=== PATIENT | female | born 1945 | race Caucasian/White ===

== ENCOUNTER 2017-05-18 19:47 | Emergency (ER) | payer MEDICARE, BC ==
[2017-05-18] MEDS ORDERED: methylPREDNISolone Sodium Succinate 125 MG/2 ML SDV IVPUSH ONE (20:07)
[2017-05-18] MEDS ORDERED: Sodium Chloride 0.9% 1,000 ML IV ONE (20:07)
[2017-05-18] MEDS ORDERED: diphenhydrAMINE 50 MG/ML SDV IVPUSH ONE (20:07)
--- NOTE | 2017-05-18 20:21 | EDM.PDOC ---
ED HPI GENERAL MEDICAL PROBLEM - General Chief Complaint: Allergic Reaction Stated Complaint: SHORTNESS OF BREATH Time Seen by Provider: 05/18/17 19:56 Source of Information: Reports: Patient History Limitations: Reports: No Limitations - History of Present Illness INITIAL COMMENTS - FREE TEXT/NARRATIVE: HISTORY AND PHYSICAL: History of present illness: Patient is a 71-year-old female that presents to the emergency room today with complaints of "allergic reaction". Reports that about 30 minutes prior to arrival she was playing with her grandchildren and had applied triple antibiotic ointment, which she had never used before, to her diabetic sores to bilateral lower extremities. Shortly after she became short of breath, noticed her skin was turning bright red, and felt some pressure in her chest. She sat down and felt that she was able to regain her breath and the pressure subsided. Shortly after her skin became very itchy. She took some prescribed hydroxizine with minimal relief. Patient denies any fever, chills, abdominal pain, cough, headache. Past medical history of diabetes type 2. Review of systems: As per history of present illness and below otherwise all systems reviewed and negative. Past medical history: As per history of present illness and as reviewed below otherwise noncontributory. Surgical history: As per history of present illness and as reviewed below otherwise noncontributory. Social history: No reported history of drug or alcohol abuse. Family history: As per history of present illness and as reviewed below otherwise noncontributory. Physical exam: HEENT: Atraumatic, normocephalic, pupils reactive, negative for conjunctival pallor or scleral icterus, mucous membranes moist, throat clear, neck supple, nontender, trachea midline. Lungs: Clear to auscultation, breath sounds equal bilaterally, chest nontender. Heart: S1S2, regular, negative for clicks, rubs, or JVD. Abdomen: Soft, obese nondistended, nontender. Negative for masses. Negative for costovertebral tenderness. Pelvis: Stable nontender. Genitourinary: Deferred. Rectal: Deferred. Skin: Appears flushed throughout, no hives, positive urine urticaria. Some diabetic sores noted to bilateral lower extremities (patient reports she has had these for several months). Extremities: Atraumatic, negative for cords or calf pain. Neurovascular unremarkable. Neuro: Awake, alert, oriented. Cranial nerves II through XII unremarkable. Cerebellum unremarkable. Motor and sensory unremarkable throughout. Exam nonfocal. Diagnostics: CBC, CMP, troponin, EKG, one view chest Therapeutics: IV fluid, Benadryl, solumedrol Impression: Allergic reaction Plan: 1. Please take the Medrol Dosepak as prescribed. Continue to take Benadryl over- the-counter as directed for the next 24 hours. 2. Avoid any hot showers or baths at this time as this may increase it itching. 3. Please follow-up with her primary care provider in the next 1-2 days. Return to the emergency room as needed as discussed Definitive disposition and diagnosis as appropriate pending reevaluation and review of above. Onset: Today Duration: Minutes: (Any minutes prior to arrival) - Related Data Allergies Allergy/AdvReac Type Severity Reaction Status Date / Time sulfur Allergy Hives Uncoded 05/18/17 20:12 Home Meds: Home Meds Aspirin [[place] Aspirin] 81 mg PO DAILY 05/28/14 [History] Losartan [Cozaar] 25 mg PO BID 05/28/14 [History] metFORMIN [Glucophage] 1,000 mg PO BID 05/28/14 [History] Past Medical History HEENT History: Reports: None Cardiovascular History: Reports: Hypertension Respiratory History: Reports: None Gastrointestinal History: Reports: None Genitourinary History: Reports: None PLANT ECOLOGIST History: Reports: None Musculoskeletal History: Reports: None Endocrine/Metabolic History: Reports: Diabetes, Type II - Infectious Disease History Infectious Disease History: Reports: None - Past Surgical History Female Surgical History: Reports: Hysterectomy Social & Family History - Tobacco Use Smoking Status *Q: Never Smoker Second Hand Smoke Exposure: No - Recreational Drug Use Recreational Drug Use: No ED ROS ALLERGIC REACTION - Review of Systems Review Of Systems: ROS reveals no pertinent complaints other than HPI. ED EXAM GENERAL NO PERIP PULSE - Physical Exam Exam: See Below (See dictation) EKG INTERPRETATION EKG Date: 05/18/17 Rhythm: NSR (Sinus tachycardia) Rate (Beats/Min): 108 Comparison: NA - No Prior EKG Course - Vital Signs Last Recorded V/S: Last Vital Signs Temp 36.9 C 05/18/17 19:51 Pulse 81 05/18/17 21:07 Resp 20 05/18/17 21:07 BP 151/72 H 05/18/17 21:07 Pulse Ox 98 05/18/17 21:07 - Orders/Labs/Meds Orders: Active Orders 24 hr Category Date Time Status EKG Documentation Completion [RC] STAT Care 05/18/17 19:52 Active Chest 1V Frontal [CR] Stat Exams 05/18/17 20:17 Taken Labs: Laboratory Tests 05/18/17 05/18/17 05/18/17 Range/Units 19:55 19:55 19:55 WBC 8.20 (4.0-11.0) K/uL RBC 4.62 (4.30-5.90) M/uL Hgb 14.0 (12.0-16.0) g/dL Hct 41.5 (36.0-46.0) % MCV 89.8 (80.0-98.0) fL MCH 30.3 (27.0-32.0) pg MCHC 33.7 (31.0-37.0) g/dL RDW Std Deviation 44.5 (28.0-62.0) fl RDW Coeff of Bret 14 (11.0-15.0) % Plt Count 305 (150-400) K/uL MPV 10.70 (7.40-12.00) fL Neut % (Auto) 36.2 L (48.0-80.0) % Lymph % (Auto) 56.1 H (16.0-40.0) % Island % (Auto) 4.9 (0.0-15.0) % Eos % (Auto) 2.6 (0.0-7.0) % Baso % (Auto) 0.2 (0.0-1.5) % Neut # (Auto) 3.0 (1.4-5.7) K/uL Lymph # (Auto) 4.6 H (0.6-2.4) K/uL Island # (Auto) 0.4 (0.0-0.8) K/uL Eos # (Auto) 0.2 (0.0-0.7) K/uL Baso # (Auto) 0.0 (0.0-0.1) K/uL Nucleated RBC % 0.0 /100WBC Nucleated RBCs # 0 K/uL Sodium 137 (136-146) mmol/L Potassium 4.2 (3.5-5.1) mmol/L Chloride 104 (98-110) mmol/L Carbon Dioxide 18 L (21-31) mmol/L BUN 19 (6.0-23.0) mg/dL Creatinine 1.1 (0.6-1.5) mg/dL Est Cr Clr Drug Dosing 43.28 mL/min Estimated GFR (MDRD) 48.8 ml/min Glucose 327 H (60-110) mg/dL Calcium 9.7 (8.8-10.8) mg/dL Total Bilirubin 0.4 (0.1-1.5) mg/dL AST 23 (5-40) IU/L ALT 17 (8-54) IU/L Alkaline Phosphatase 95 (40-150) Troponin I < 0.10 (0.0-0.29) NG/ML Total Protein 7.5 (6.0-8.0) g/dL Albumin 3.8 (3.4-4.8) g/dL Globulin 3.7 H (2.0-3.5) g/dL Albumin/Globulin Ratio 1.0 L (1.3-2.8) Meds: Medications Discontinued Medications Generic Name Dose Route Start Last Admin Trade Name Freq PRN Reason Stop Dose Admin Diphenhydramine HCl 25 mg 05/18/17 20:07 05/18/17 20:15 Benadryl IVPUSH 05/18/17 20:08 25 mg ONETIME ONE Administration Sodium Chloride 1,000 mls @ 999 mls/hr 05/18/17 20:07 05/18/17 20:14 Normal Saline IV 05/18/17 21:07 999 mls/hr STAT ONE Administration Methylprednisolone Sodium Succinate 125 mg 05/18/17 20:07 05/18/17 20:16 Solu-Medrol IVPUSH 05/18/17 20:08 125 mg ONETIME ONE Administration Departure - Departure Time of Disposition: 21:22 Disposition: Home, Self-Care 01 Clinical Impression: Allergic reaction Qualifiers: Encounter type: initial encounter Qualified Code(s): T78.40XA - Allergy, unspecified, initial encounter - Discharge Information Referrals: PCP,None [Primary Care Provider] - Additional Instructions: The following information is given to patients seen in the emergency department who are being discharged to home. This information is to outline your options for follow-up care. We provide all patients seen in our emergency department with a follow-up referral. The need for follow-up, as well as the timing and circumstances, are variable depending upon the specifics of your emergency department visit. If you don't have a primary care physician on staff, we will provide you with a referral. We always advise you to contact your personal physician following an emergency department visit to inform them of the circumstance of the visit and for follow-up with them and/or the need for any referrals to a consulting specialist. The emergency department will also refer you to a specialist when appropriate. This referral assures that you have the opportunity for followup care with a specialist. All of these measure are taken in an effort to provide you with optimal care, which includes your followup. Under all circumstances we always encourage you to contact your private physician who remains a resource for coordinating your care. When calling for followup care, please make the office aware that this follow-up is from your recent emergency room visit. If for any reason you are refused follow-up, please contact the [facility] emergency department at and asked to speak to the emergency department charge nurse. [facility] [address] [place] [address] 1. Please take the Medrol Dosepak as prescribed. Continue to take Benadryl over- the-counter as directed for the next 24 hours. Please fill prescription for EpiPen to have on hand for future occurrences. 2. Avoid any hot showers or baths at this time as this may increase it itching. 3. Please follow-up with her primary care provider in the next 1-2 days. Return to the emergency room as needed as discussed - My Orders Last 24 Hours: My Active Orders 05/18/17 19:52 EKG Documentation Completion [RC] STAT 05/18/17 20:17 Chest 1V Frontal [CR] Stat - Assessment/Plan Last 24 Hours: My Active Orders 05/18/17 19:52 EKG Documentation Completion [RC] STAT 05/18/17 20:17 Chest 1V Frontal [CR] Stat
[2017-05-18 21:08] VITALS: BP 151/72
--- NOTE | 2017-05-20 17:29 | CR ---
EXAM DATE: 05/18/17 PATIENT'S AGE: 71 Patient: SARITHA HSU Facility: [place], [place] Site . Site : 1945 Study: XRay Chest [id number]/3/2017 8:43:01 PM Ordering Physician: Silvia Low Final Report: INDICATION: Chest Pressure TECHNIQUE: Chest 1 view. COMPARISON: None. FINDINGS: Cardiovascular and mediastinum: Heart size and vasculature are normal in caliber and appearance. Mediastinum is within normal limits. Lungs and pleural space: Lungs are clear. No sign of infiltrate or mass. No sign of pleural effusion. No pneumothorax. Bones and soft tissues: No significant findings. IMPRESSION: Unremarkable chest. Dictated by: Brodie Alvarez MD @ 05/18/2017 21:09:03 (Electronic Signature) Report Signed by Proxy. SANTANA
== END 2017-05-18 21:38 | disposition home or self-care (01) ==
LOC: MW.ED 19:47
DX: R06.02 Shortness of breath (principal); E11.628 Type 2 diabetes mellitus with other skin complications; T49.0X5A Adverse effect of local antifungal, anti-infective and anti-inflammatory drugs, initial encounter; I10 Essential (primary) hypertension; Z79.82 Long term (current) use of aspirin; Z79.84 Long term (current) use of oral hypoglycemic drugs; Z90.710 Acquired absence of both cervix and uterus; Z88.2 Allergy status to sulfonamides
CPT/HCPCS: 36415; 71010; 80053; 84484; 85025; 93005; 96374; 96375; 99285; J1200; J2930; J7040; 96361; 99283

== ENCOUNTER 2019-04-14 14:51 | Inpatient (IN) | payer MEDICARE, OTHER ==
[2019-04-14] MEDS ORDERED: Sodium Chloride 0.9% 1,000 ML IV ONE (15:01)
--- NOTE | 2019-04-14 15:01 | EDM.PDOC ---
ED HPI GENERAL MEDICAL PROBLEM - General Chief Complaint: Lower Extremity Injury/Pain Stated Complaint: RT LEG ISSUE;POSSIBLE INFECTION Time Seen by Provider: 04/14/19 14:56 Source of Information: Reports: Patient History Limitations: Reports: No Limitations - History of Present Illness INITIAL COMMENTS - FREE TEXT/NARRATIVE: HISTORY AND PHYSICAL: History of present illness: Patient is a 73-year-old female who presents to the emergency room with complaints of right lower extremity pain and redness. Patient is a type II diabetic and normally has a javed color to her lower extremities, but over the past several days has had localized redness and swelling to the right leon that extends into the calf. She does have pain in the calf when ambulating. Also has felt generalized weakness and nausea. She attributed those symptoms to having "the flu". Patient denies any fever, chills, headache, change in vision, syncope. Denies any chest pain, back pain, shortness of breath or cough. Denies any abdominal pain, nausea, vomiting, diarrhea, constipation or dysuria. Has not noted any blood in urine or stool. Patient has been eating and drinking appropriately. Review of systems: As per history of present illness and below otherwise all systems reviewed and negative. Past medical history: As per history of present illness and as reviewed below otherwise noncontributory. Surgical history: As per history of present illness and as reviewed below otherwise noncontributory. Social history: See social history for further information Family history: As per history of present illness and as reviewed below otherwise noncontributory. Physical exam: General: Well-developed and well-nourished 73-year-old female. Alert and oriented. Nontoxic appearing and in no acute distress. HEENT: Atraumatic, normocephalic, pupils equal and reactive bilaterally, negative for conjunctival pallor or scleral icterus, mucous membranes moist, TMs normal bilaterally, throat clear, neck supple, nontender, trachea midline. No drooling or trismus noted. No meningeal signs. No hot potato voice noted. Lungs: Clear to auscultation, breath sounds equal bilaterally, chest nontender. Heart: S1S2, regular rate and rhythm without overt murmur Abdomen: Soft, nondistended, obese, nontender. Negative for masses. Negative for costovertebral tenderness. Pelvis: Stable nontender. Genitourinary/Rectal: Deferred. Skin: Normal javed discoloration of bilateral lower extremities from midshin downward with dry skin. She does have new erythema and soft tissue swelling of the right anterior leon that wraps to the lateral calf and around (marked with surgical marker). Superficial and healing scratches to bilateral shins. Otherwise skin is intact, warm, dry. No lesions or rashes noted. Extremities: Atraumatic, ambulatory without assistance, moves all extremities per self without difficulty or deficits. Mild right calf pain with palpation. Palpatble pedal pulses bilaterally. Neurovascular unremarkable. Neuro: Awake, alert, oriented. Cranial nerves II through XII unremarkable. Cerebellum unremarkable. Motor and sensory unremarkable throughout. Exam nonfocal. Notes: During the triage assessment it is noted that her blood pressure is low. She states she typically has "normal" blood pressure with her BP medications. States she has felt weak while ambulating. Lab work is pending. She is receiving IV fluids. We did discuss that she will likely need to stay for admission. Patient is agreeable. Patient does have elevated white count and lactate. X-ray shows no soft tissue gas. Dr Mcpherson was consulted on this case, agreeable to admit patient. Jose Ramon Nugent VE[employer]MENT CLEANER in with patient. Patient's blood pressure has improved since a liter bolus. Currently receiving IV antibiotics. Diagnostics: CBC, CMP, lactic acid, BC x 2, Venous Doppler RLE, UA, EKG Therapeutics: IV fluids, Zofran, Vancomycin Impression: Cellulitis Sepsis History of Type 2 DM Plan: ICU admission Definitive disposition and diagnosis as appropriate pending reevaluation and review of above. Right Leg Pain Score (Numeric/FACES): 8 - Related Data Allergies Allergy/AdvReac Type Severity Reaction Status Date / Time Latex, Natural Rubber Allergy Hives Verified 04/15/19 03:47 sulfur Allergy Hives Uncoded 06/22/18 05:57 Home Meds: Home Meds Aspirin [[place] Aspirin] 81 mg PO DAILY 05/28/14 [History] Losartan [Cozaar] 25 mg PO BEDTIME 05/28/14 [History] metFORMIN [Glucophage] 1,000 mg PO BID 05/28/14 [History] Past Medical History HEENT History: Reports: None Cardiovascular History: Reports: Hypertension Respiratory History: Reports: None Gastrointestinal History: Reports: None Genitourinary History: Reports: None 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 ED EXAM, GENERAL - Physical Exam Exam: See Below (See dictation) Course - Vital Signs Last Recorded V/S: Last Vital Signs Temp 96.8 F 04/15/19 08:00 Pulse 91 04/15/19 08:00 Resp 23 H 04/15/19 08:00 BP 124/90 04/15/19 08:00 Pulse Ox 94 L 04/15/19 08:00 - Orders/Labs/Meds Orders: Active Orders 24 hr Category Date Time Status Admission Status [Patient Status] [ADT] Stat ADT 04/14/19 15:47 Active CULTURE BLOOD [BC] Stat Lab 04/14/19 15:03 Received CULTURE BLOOD [BC] Stat Lab 04/14/19 15:18 Received CULTURE URINE [RM] Stat Lab 04/14/19 19:20 Received Sodium Chloride 0.9% [Normal Saline] 500 ml Med 04/14/19 15:15 Active IV .BOLUS Sodium Chloride 0.9% [Normal Saline] 500 ml Med 04/14/19 16:00 Active IV .BOLUS Blood Culture x2 Reflex Set [OM.PC] Stat Oth 04/14/19 15:01 Ordered Medication Orders Acetaminophen (Tylenol) 650 mg PO Q4H PRN PRN Reason: Pain (Mild 1-3)/fever Aspirin (Aspirin) 81 mg PO DAILY [facility] Last Admin: 04/15/19 08:12 Dose: 81 mg Famotidine (Pepcid) 20 mg IVPUSH BEDTIME [facility] Last Admin: 04/14/19 20:07 Dose: 20 mg Heparin Sodium (Porcine) (Heparin Sodium) 5,000 units SUBCUT Q8H [facility] Last Admin: 04/15/19 08:12 Dose: 5,000 units Admin: 04/14/19 23:14 Dose: 5,000 units Admin: 04/14/19 17:04 Dose: 5,000 units Sodium Chloride (Normal Saline) 500 mls @ 999 mls/hr IV .BOLUS [facility] Last Admin: 04/14/19 16:00 Dose: 999 mls/hr Infusion: 04/14/19 16:00 Dose: 999 mls/hr Admin: 04/14/19 15:57 Dose: 999 mls/hr Infusion: 04/14/19 15:43 Dose: 999 mls/hr Admin: 04/14/19 15:12 Dose: 999 mls/hr Sodium Chloride (Normal Saline) 500 mls @ 999 mls/hr IV .BOLUS [facility] Sodium Chloride (Normal Saline) 1,000 mls @ 125 mls/hr IV Q8H [facility] Stop: 04/15/19 12:00 Last Admin: 04/15/19 09:42 Dose: Not Given Admin: 04/15/19 01:54 Dose: 125 mls/hr Infusion: 04/15/19 01:04 Dose: 125 mls/hr Admin: 04/14/19 17:04 Dose: 125 mls/hr Piperacillin Sod/Tazobactam (Sod 3.375 gm/ Sodium Chloride) 50 mls @ 100 mls/ hr IV Q6H [facility] Last Admin: 04/15/19 09:07 Dose: 100 mls/hr Vancomycin HCl 1.5 gm/ Premix 300 mls @ 200 mls/hr IV Q12H [facility] Insulin Aspart (Novolog) 0 unit SUBCUT TIDAC [facility]; Protocol Last Admin: 04/15/19 07:18 Dose: Not Given Admin: 04/14/19 17:05 Dose: Not Given Morphine Sulfate (Morphine) 2 mg IVPUSH Q2H PRN PRN Reason: Pain (severe 7-10) Stop: 04/15/19 16:16 Ondansetron HCl (Zofran) 4 mg IVPUSH Q4H PRN PRN Reason: Nausea Oxycodone HCl (Oxycodone) 5 mg PO Q4H PRN PRN Reason: Pain Last Admin: 04/15/19 01:51 Dose: 5 mg Temazepam (Restoril) 15 mg PO BEDTIME PRN PRN Reason: Insomnia Last Admin: 04/14/19 19:55 Dose: 15 mg Vancomycin HCl (Pharmacy To Dose - Vancomycin) 1 dose .XX ASDIRECTED [facility] Labs: Laboratory Tests 04/14/19 04/14/19 04/14/19 Range/Units 15:03 15:03 15:03 WBC 15.06 H (4.0-11.0) K/uL RBC 4.44 (4.30-5.90) M/uL Hgb 13.3 (12.0-16.0) g/dL Hct 40.3 (36.0-46.0) % MCV 90.8 (80.0-98.0) fL MCH 30.0 (27.0-32.0) pg MCHC 33.0 (31.0-37.0) g/dL RDW Std Deviation 45.5 (28.0-62.0) fl RDW Coeff of Bret 14 (11.0-15.0) % Plt Count 223 (150-400) K/uL MPV 10.50 (7.40-12.00) fL Neut % (Auto) 64.8 (48.0-80.0) % Lymph % (Auto) 24.5 (16.0-40.0) % Harris % (Auto) 10.2 (0.0-15.0) % Eos % (Auto) 0.1 (0.0-7.0) % Baso % (Auto) 0.4 (0.0-1.5) % Neut # (Auto) 9.8 H (1.4-5.7) K/uL Lymph # (Auto) 3.7 H (0.6-2.4) K/uL Harris # (Auto) 1.5 H (0.0-0.8) K/uL Eos # (Auto) 0.0 (0.0-0.7) K/uL Baso # (Auto) 0.1 (0.0-0.1) K/uL Nucleated RBC % 0.0 /100WBC Nucleated RBCs # 0 K/uL Lactate 2.7 H (0.20-2.00) mmol/L Sodium 131 L (136-145) mmol/L Potassium 3.5 (3.5-5.1) mmol/L Chloride 96 L (98-107) mmol/L Carbon Dioxide 22.3 (21.0-32.0) mmol/L BUN 16 (7.0-18.0) mg/dL Creatinine 1.4 H (0.6-1.0) mg/dL Est Cr Clr Drug Dosing 34.28 mL/min Estimated GFR (MDRD) 36.8 ml/min Glucose 175 H (74-106) mg/dL Hemoglobin A1c (4.5-6.2) % Calcium 8.8 (8.5-10.1) mg/dL Total Bilirubin 1.2 H (0.2-1.0) mg/dL AST 21 (15-37) IU/L ALT 18 (14-63) IU/L Alkaline Phosphatase 80 (46-116) U/L Total Protein 8.3 H (6.4-8.2) g/dL Albumin 3.3 L (3.4-5.0) g/dL Globulin 5.0 H (2.6-4.0) g/dL Albumin/Globulin Ratio 0.7 L (0.9-1.6) 04/14/19 Range/Units 15:03 WBC (4.0-11.0) K/uL RBC (4.30-5.90) M/uL Hgb (12.0-16.0) g/dL Hct (36.0-46.0) % MCV (80.0-98.0) fL MCH (27.0-32.0) pg MCHC (31.0-37.0) g/dL RDW Std Deviation (28.0-62.0) fl RDW Coeff of Bret (11.0-15.0) % Plt Count (150-400) K/uL MPV (7.40-12.00) fL Neut % (Auto) (48.0-80.0) % Lymph % (Auto) (16.0-40.0) % Harris % (Auto) (0.0-15.0) % Eos % (Auto) (0.0-7.0) % Baso % (Auto) (0.0-1.5) % Neut # (Auto) (1.4-5.7) K/uL Lymph # (Auto) (0.6-2.4) K/uL Harris # (Auto) (0.0-0.8) K/uL Eos # (Auto) (0.0-0.7) K/uL Baso # (Auto) (0.0-0.1) K/uL Nucleated RBC % /100WBC Nucleated RBCs # K/uL Lactate (0.20-2.00) mmol/L Sodium (136-145) mmol/L Potassium (3.5-5.1) mmol/L Chloride (98-107) mmol/L Carbon Dioxide (21.0-32.0) mmol/L BUN (7.0-18.0) mg/dL Creatinine (0.6-1.0) mg/dL Est Cr Clr Drug Dosing mL/min Estimated GFR (MDRD) ml/min Glucose (74-106) mg/dL Hemoglobin A1c 7.9 H (4.5-6.2) % Calcium (8.5-10.1) mg/dL Total Bilirubin (0.2-1.0) mg/dL AST (15-37) IU/L ALT (14-63) IU/L Alkaline Phosphatase (46-116) U/L Total Protein (6.4-8.2) g/dL Albumin (3.4-5.0) g/dL Globulin (2.6-4.0) g/dL Albumin/Globulin Ratio (0.9-1.6) Meds: Medications Generic Name Dose Route Start Last Admin Trade Name Freq PRN Reason Stop Dose Admin Acetaminophen 650 mg 04/14/19 16:15 Tylenol PO Q4H PRN Pain (Mild 1-3)/fever Aspirin 81 mg 04/15/19 09:00 04/15/19 08:12 Aspirin PO 81 mg DAILY MARK Administration Famotidine 20 mg 04/14/19 21:00 04/14/19 20:07 Pepcid IVPUSH 20 mg BEDTIME MARK Administration Heparin Sodium (Porcine) 5,000 units 04/14/19 16:15 04/15/19 08:12 Heparin Sodium SUBCUT 5,000 units Q8H MARK Administration Sodium Chloride 500 mls @ 999 mls/hr 04/14/19 15:15 04/14/19 16:00 Normal Saline IV 999 mls/hr .BOLUS MARK Administration Sodium Chloride 500 mls @ 999 mls/hr 04/14/19 16:00 Normal Saline IV .BOLUS MARK Sodium Chloride 1,000 mls @ 125 mls/hr 04/14/19 16:15 04/15/19 09:42 Normal Saline IV 04/15/19 12:00 Not Given Q8H MARK Piperacillin Sod/Tazobactam 50 mls @ 100 mls/hr 04/15/19 10:00 04/15/19 09:07 Sod 3.375 gm/ Sodium Chloride IV 100 mls/hr Q6H MARK Administration Vancomycin HCl 1.5 gm/ Premix 300 mls @ 200 mls/hr 04/15/19 18:00 IV Q12H [facility] Insulin Aspart 0 unit 04/14/19 17:00 04/15/19 07:18 Novolog SUBCUT Not Given TIDAC [facility] Protocol Morphine Sulfate 2 mg 04/14/19 16:15 Morphine IVPUSH 04/15/19 16:16 Q2H PRN Pain (severe 7-10) Ondansetron HCl 4 mg 04/14/19 16:15 Zofran IVPUSH Q4H PRN Nausea Oxycodone HCl 5 mg 04/14/19 16:51 04/15/19 01:51 Oxycodone PO 5 mg Q4H PRN Administration Pain Temazepam 15 mg 04/14/19 19:11 04/14/19 19:55 Restoril PO 15 mg BEDTIME PRN Administration Insomnia Vancomycin HCl 1 dose 04/14/19 16:30 Pharmacy To Dose - Vancomycin .XX ASDIRECTED [facility] Discontinued Medications Generic Name Dose Route Start Last Admin Trade Name Freq PRN Reason Stop Dose Admin Sodium Chloride 1,000 mls @ 999 mls/hr 04/14/19 15:01 04/14/19 15:59 Normal Saline IV 04/14/19 16:01 Not Given STAT ONE Vancomycin HCl 1 gm/ Sodium 250 mls @ 166 mls/hr 04/14/19 15:39 04/14/19 17: 26 Chloride IV 04/14/19 17:09 Not Given ONETIME ONE Sodium Chloride Confirm 04/14/19 15:47 04/14/19 16:03 Normal Saline Administered 04/14/19 15:48 Not Given Dose 250 mls @ as directed .ROUTE .STK-MED ONE Vancomycin HCl 1 gm/ Sodium 250 mls @ 166 mls/hr 04/14/19 15:59 04/14/19 16: 02 Chloride IV 04/14/19 17:09 166 mls/hr ONETIME ONE Administration Piperacillin Sod/Tazobactam 50 mls @ 100 mls/hr 04/14/19 16:30 04/15/19 04:20 Sod 2.25 gm/ Sodium Chloride IV 100 mls/hr Q6H MARK Administration Vancomycin HCl 1.5 gm/ Premix 300 mls @ 200 mls/hr 04/15/19 06:00 04/15/19 05 :17 IV 200 mls/hr Q24H MARK Administration Ondansetron HCl 4 mg 04/14/19 15:02 04/14/19 15:19 Zofran IVPUSH 04/14/19 15:03 Not Given ONETIME ONE Vancomycin HCl Confirm 04/14/19 15:46 04/14/19 17:10 Vancomycin Administered 04/14/19 15:47 1 gm Dose Administration 1 gm .ROUTE .STK-MED ONE Departure - Departure Time of Disposition: 13:00 Disposition: Admitted As Inpatient 65 Clinical Impression: History of type 2 diabetes mellitus Cellulitis Qualifiers: Site of cellulitis: extremity Site of cellulitis of extremity: lower extremity Laterality: right Qualified Code(s): L03.115 - Cellulitis of right lower limb Sepsis Qualifiers: Sepsis type: sepsis due to unspecified organism Qualified Code(s): A41.9 - Sepsis, unspecified organism - Discharge Information - My Orders Last 24 Hours: My Active Orders 04/14/19 15:01 Blood Culture x2 Reflex Set [OM.PC] Stat 04/14/19 15:03 CULTURE BLOOD [BC] Stat 04/14/19 15:15 Sodium Chloride 0.9% [Normal Saline] 500 ml IV .BOLUS 04/14/19 15:18 CULTURE BLOOD [BC] Stat 04/14/19 15:47 Admission Status [Patient Status] [ADT] Stat 04/14/19 16:00 Sodium Chloride 0.9% [Normal Saline] 500 ml IV .BOLUS 04/14/19 19:20 CULTURE URINE [RM] Stat - Assessment/Plan Last 24 Hours: My Active Orders 04/14/19 15:01 Blood Culture x2 Reflex Set [OM.PC] Stat 04/14/19 15:03 CULTURE BLOOD [BC] Stat 04/14/19 15:15 Sodium Chloride 0.9% [Normal Saline] 500 ml IV .BOLUS 04/14/19 15:18 CULTURE BLOOD [BC] Stat 04/14/19 15:47 Admission Status [Patient Status] [ADT] Stat 04/14/19 16:00 Sodium Chloride 0.9% [Normal Saline] 500 ml IV .BOLUS 04/14/19 19:20 CULTURE URINE [] Stat
[2019-04-14] MEDS ORDERED: Ondansetron 4 MG/2 ML SDV IVPUSH ONE (15:02)
[2019-04-14] MEDS: Sodium Chloride 0.9% 500 ML IV SCH ×3 (15:12→16:00)
[2019-04-14 15:45] LABS: CARBON DIOXIDE,CO2 22.3 mmol/L (21.0-32.0); POTASSIUM,K 3.5 mmol/L (3.5-5.1)
[2019-04-14] MEDS ORDERED: Vancomycin 1 GM SDV ONE (15:46)
[2019-04-14] MEDS ORDERED: Sodium Chloride 0.9% 250 ML ONE (15:47)
[2019-04-14] MEDS ORDERED: Sodium Chloride 0.9% 500 ML IV SCH (16:00)
[2019-04-14] MEDS ORDERED: Morphine 2 MG/ML Syringe IVPUSH PRN (16:15)
[2019-04-14] MEDS ORDERED: Ondansetron 4 MG/2 ML SDV IVPUSH PRN (16:15)
[2019-04-14] MEDS ORDERED: Acetaminophen 325 MG Tab PO PRN (16:15)
--- NOTE | 2019-04-14 16:22 | CR ---
Indication: Pain with swelling and redness E Technique: Right tibia and fibula 2 views Comparison: None Findings: Bones: Alignment is normal. No fractures or bone lesions. No sign of osteomyelitis. 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 Unremarkable ankle joint. Soft tissues: Punctate vascular calcifications are present. No other soft tissue abnormality. No soft tissue gas evident. Dictated by Gurinder Sullivan MD @ Apr 14 2019 4:15PM Signed by Dr. Gurinder Sullivan @ Apr 14 2019 4:20PM
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
--- NOTE | 2019-04-14 16:48 | US ---
INDICATION: Pain and swelling. TECHNIQUE: Ultrasound venous duplex lower right extremity. Compression venous exam was performed using crabtree-scale, color Doppler, and spectral Doppler imaging. COMPARISON: None. FINDINGS: Sonographic imaging demonstrates the visualized right common femoral, deep femoral, femoral, popliteal and greater saphenous and the contralateral left common femoral veins to be fully compressible with normal color Doppler blood flow. The calf veins could not be adequately evaluated. Incidentally noted in the right groin are multiple enlarged lymph nodes, the largest demonstrating a short axis diameter of 1.9 cm. IMPRESSION: 1. No right lower extremity DVT from the common femoral through popliteal veins. The calf veins could not be adequately evaluated. 2. Right inguinal lymphadenopathy, which is nonspecific. This could be reactive. Lymphoproliferative disorder or metastatic disease are not excluded. Clinically correlate. Dictated by Robson Cooper MD @ 04/14/2019 4:46:29 PM Dictated by: Robson Cooper MD @ 04/14/2019 16:46:35 (Electronically Signed)
[2019-04-14] MEDS ORDERED: oxyCODONE 5 MG Tab PO PRN (16:51)
[2019-04-14 16:59] LABS: HEMOGLOBIN A1C 7.9 % (4.5-6.2)
[2019-04-14] MEDS: Heparin Sodium 5,000 Units/ML Vial SUBCUT SCH ×2 (17:04→23:14)
[2019-04-14] MEDS: Piperacillin/Tazobactam 2.25 GM in Sodium Chloride 0.9% 50 ML IV SCH ×2 (17:04→23:15)
[2019-04-14] MEDS: Sodium Chloride 0.9% 1,000 ML IV SCH (17:04)
[2019-04-14] MEDS: Insulin Aspart 100 Units/ML 3 ML Pen SUBCUT SCH (17:05)
--- NOTE | 2019-04-14 17:10 | PN ---
[facility] Physician - Brief Progress [id number]/31/2019 16:46[facility] Twyla Serrato, DAVID - [facility] - MWN SARITHA LEDESMADate of Service 04/14/2019 16:46HPI/Events of Note eICU Admission NotePatient is a 73-year-old male female admitted to the intensive care unit for sepsis.Past medical history significant for essential hypertension, type 2 diabetes, and obesity. Ericka villatoro presented to the emergency department with a 1 day history of right lower leg pain and erythem a associated with body aches and malaise.Initial vitals on arrival to the emergency department reveal ed patient to be hypotensive, however interestingly did not have tachycardia, tachypnea, or documenta tion of fever. Initial laboratory studies revealed leukocytosis with neutrophilic predominance, elev ated lactate of 2.7 mild hyponatremia and hypochloremia, with elevation in creatinine to 1.4, mild hy perglycemia, mild elevation in total bilirubin, and interestingly an elevation in total protein but w ith an overall reduction in albumin.Patient was administered intravenous crystalloid fluid with resol ution of hypotension, and then admitted to the intensive care unit for further management.Evaluation through camera, patient is noted to ambulate and sit on bed without assistance. Right lower extremit y is erythematous. Review of vitals revealed patient to be hemodynamically stable without hypotensio n or tachycardia. She is noted to be mildly tachypneic at 24.eICU Recommendations:Sepsis (SIRS Criter ia of leukocytosis and tachypnea), suspected secondary to cellulitis of right lower extremity- agree with broad spectrum empiric coverage with piperacillin-tazobactam and vancomycinAcute kidney injury, suspect secondary to pre-renal azotemia- urine sodium, creatinine, urea for calculation of FEUr and F Tere- strict I/OHypotension, suspect distributive etiology from sepsis- resolved with fluid bolus- agr ee with repeat lactate- will defer additional infectious work up to primary service, agree with urina lysis, blood cultures, and chest x-rayElevated bilirubin, of uncertain significance- consider repeat liver function testing to assess trendInterventions Major-Hypotension - evaluation and management, In fection - evaluation and management
[2019-04-14] MEDS: Temazepam 15 MG Cap PO PRN (19:55)
[2019-04-14] MEDS: Famotidine 20 MG/2 ML SDV IVPUSH SCH (20:07)
--- NOTE | 2019-04-14 22:10 | CR ---
INDICATION: Sepsis. Leukocytosis TECHNIQUE: Chest radiograph 1 view COMPARISON: 06/22/18 FINDINGS: Moderate degradation of image quality noted due to body habitus. Mediastinum: The mediastinum is normal in appearance. The heart silhouette is normal in size and morphology. Lung: Both lungs are unremarkable in appearance. No sign of pleural effusion seen. No pneumothorax is identified. IMPRESSION: 1. No acute cardiopulmonary disease is seen. Dictated by: Chris Anderson MD @ 04/14/2019 22:08:00 (Electronically Signed)
[2019-04-15] MEDS: Sodium Chloride 0.9% 1,000 ML IV SCH ×2 (01:54→09:42)
[2019-04-15] MEDS: Piperacillin/Tazobactam 2.25 GM in Sodium Chloride 0.9% 50 ML IV SCH (04:20)
[2019-04-15] MEDS ORDERED: VANCOMYCIN/WATER FOR INJ (PEG) 1.5 GM in Premix Bag 1 BAG IV SCH (06:00)
[2019-04-15 06:29] LABS: BLOOD UREA NITROGEN,BUN 17 mg/dL (7.0-18.0); CARBON DIOXIDE,CO2 21.3 mmol/L (21.0-32.0); CHLORIDE,CL 102 mmol/L (98-107); GLUCOSE RANDOM 152 mg/dL (74-106); POTASSIUM,K 3.7 mmol/L (3.5-5.1); SODIUM,NA 136 mmol/L (136-145)
[2019-04-15] MEDS: Insulin Aspart 100 Units/ML 3 ML Pen SUBCUT SCH ×3 (07:18→18:15)
[2019-04-15] MEDS: Heparin Sodium 5,000 Units/ML Vial SUBCUT SCH ×3 (08:12→23:55)
[2019-04-15] MEDS: Aspirin 81 MG Tab.Chew PO SCH (08:12)
--- NOTE | 2019-04-15 08:17 | PCM.PN ---
- General Info Date of Service: 04/15/19 Admission Dx/Problem (Free Text): Admission Diagnosis/Problem Admission Diagnosis/Problem Sepsis/Cellulitis Subjective Update: Doing well this morning, reports leg is still painful, but feeling a little better. No chest pain or SOB. No other concerns. Functional Status: Reports: Pain Controlled, Tolerating Diet, Ambulating, Urinating - Review of Systems General: Reports: Fatigue, Malaise HEENT: Reports: No Symptoms. Denies: Headaches, Sore Throat, Visual Changes Pulmonary: Reports: No Symptoms. Denies: Shortness of Breath Cardiovascular: Reports: No Symptoms. Denies: Chest Pain Gastrointestinal: Reports: No Symptoms. Denies: Abdominal Pain, Nausea, Vomiting Genitourinary: Reports: No Symptoms. Denies: Dysuria, Frequency, Burning Musculoskeletal: Reports: Leg Pain (R leg pain along with groin pain.) Skin: Reports: Rash (RLE) Psychiatric: Reports: No Symptoms - Patient Data Vitals - Most Recent: Last Vital Signs Temp 96.8 F 04/15/19 04:00 Pulse 83 04/15/19 07:00 Resp 20 04/15/19 07:00 BP 119/59 L 04/15/19 07:00 Pulse Ox 95 04/15/19 07:00 Weight - Most Recent: 123.405 kg I&O - Last 24 Hours: Intake & Output 04/14/19 04/15/19 04/15/19 22:59 06:59 14:59 Intake Total 1900 Output Total 0 650 Balance 0 1250 Lab Results Last 24 Hours: Laboratory Results - last 24 hr 04/14/19 04/14/19 04/14/19 Range/Units 15:03 15:03 15:03 WBC 15.06 H (4.0-11.0) K/uL RBC 4.44 (4.30-5.90) M/uL Hgb 13.3 (12.0-16.0) g/dL Hct 40.3 (36.0-46.0) % MCV 90.8 (80.0-98.0) fL MCH 30.0 (27.0-32.0) pg MCHC 33.0 (31.0-37.0) g/dL RDW Std Deviation 45.5 (28.0-62.0) fl RDW Coeff of Bret 14 (11.0-15.0) % Plt Count 223 (150-400) K/uL MPV 10.50 (7.40-12.00) fL Neut % (Auto) 64.8 (48.0-80.0) % Lymph % (Auto) 24.5 (16.0-40.0) % [place] % (Auto) 10.2 (0.0-15.0) % Eos % (Auto) 0.1 (0.0-7.0) % Baso % (Auto) 0.4 (0.0-1.5) % Neut # (Auto) 9.8 H (1.4-5.7) K/uL Lymph # (Auto) 3.7 H (0.6-2.4) K/uL [place] # (Auto) 1.5 H (0.0-0.8) K/uL Eos # (Auto) 0.0 (0.0-0.7) K/uL Baso # (Auto) 0.1 (0.0-0.1) K/uL Nucleated RBC % 0.0 /100WBC Nucleated RBCs # 0 K/uL Lactate 2.7 H (0.20-2.00) mmol/L Sodium 131 L (136-145) mmol/L Potassium 3.5 (3.5-5.1) mmol/L Chloride 96 L (98-107) mmol/L Carbon Dioxide 22.3 (21.0-32.0) mmol/L BUN 16 (7.0-18.0) mg/dL Creatinine 1.4 H (0.6-1.0) mg/dL Est Cr Clr Drug Dosing 34.28 mL/min Estimated GFR (MDRD) 36.8 ml/min Glucose 175 H (74-106) mg/dL POC Glucose (60-110) mg/dL Hemoglobin A1c (4.5-6.2) % Calcium 8.8 (8.5-10.1) mg/dL Total Bilirubin 1.2 H (0.2-1.0) mg/dL AST 21 (15-37) IU/L ALT 18 (14-63) IU/L Alkaline Phosphatase 80 (46-116) U/L Total Protein 8.3 H (6.4-8.2) g/dL Albumin 3.3 L (3.4-5.0) g/dL Globulin 5.0 H (2.6-4.0) g/dL Albumin/Globulin Ratio 0.7 L (0.9-1.6) Urine Color Urine Appearance Urine pH (5.0-8.0) Ur Specific [place] (1.001-1.035) Urine Protein (NEGATIVE) mg/dL Urine Glucose (UA) (NEGATIVE) mg/dL Urine Ketones (NEGATIVE) mg/dL Urine Occult Blood (NEGATIVE) Urine Nitrite (NEGATIVE) Urine Bilirubin (NEGATIVE) Urine Urobilinogen (<2.0) EU/dL Ur Leukocyte Esterase (NEGATIVE) Urine RBC (0-2/HPF) Urine WBC (0-5/HPF) Ur Epithelial Cells (NONE-FEW) Urine Bacteria (NEGATIVE) Hyaline Casts (0-2/LPF) Urine Mucus (NONE-MOD) 04/14/19 04/14/19 04/14/19 Range/Units 15:03 16:56 19:20 WBC (4.0-11.0) K/uL RBC (4.30-5.90) M/uL Hgb (12.0-16.0) g/dL Hct (36.0-46.0) % MCV (80.0-98.0) fL MCH (27.0-32.0) pg MCHC (31.0-37.0) g/dL RDW Std Deviation (28.0-62.0) fl RDW Coeff of Bret (11.0-15.0) % Plt Count (150-400) K/uL MPV (7.40-12.00) fL Neut % (Auto) (48.0-80.0) % Lymph % (Auto) (16.0-40.0) % [place] % (Auto) (0.0-15.0) % Eos % (Auto) (0.0-7.0) % Baso % (Auto) (0.0-1.5) % Neut # (Auto) (1.4-5.7) K/uL Lymph # (Auto) (0.6-2.4) K/uL [place] # (Auto) (0.0-0.8) K/uL Eos # (Auto) (0.0-0.7) K/uL Baso # (Auto) (0.0-0.1) K/uL Nucleated RBC % /100WBC Nucleated RBCs # K/uL Lactate (0.20-2.00) mmol/L Sodium (136-145) mmol/L Potassium (3.5-5.1) mmol/L Chloride (98-107) mmol/L Carbon Dioxide (21.0-32.0) mmol/L BUN (7.0-18.0) mg/dL Creatinine (0.6-1.0) mg/dL Est Cr Clr Drug Dosing mL/min Estimated GFR (MDRD) ml/min Glucose (74-106) mg/dL POC Glucose 146 H (60-110) mg/dL Hemoglobin A1c 7.9 H (4.5-6.2) % Calcium (8.5-10.1) mg/dL Total Bilirubin (0.2-1.0) mg/dL AST (15-37) IU/L ALT (14-63) IU/L Alkaline Phosphatase (46-116) U/L Total Protein (6.4-8.2) g/dL Albumin (3.4-5.0) g/dL Globulin (2.6-4.0) g/dL Albumin/Globulin Ratio (0.9-1.6) Urine Color YELLOW Urine Appearance SLT CLOUDY Urine pH 5.5 (5.0-8.0) Ur Specific [place] 1.020 (1.001-1.035) Urine Protein 30 H (NEGATIVE) mg/dL Urine Glucose (UA) NEGATIVE (NEGATIVE) mg/dL Urine Ketones TRACE H (NEGATIVE) mg/dL Urine Occult Blood SMALL H (NEGATIVE) Urine Nitrite POSITIVE H (NEGATIVE) Urine Bilirubin SMALL H (NEGATIVE) Urine Urobilinogen 1.0 (<2.0) EU/dL Ur Leukocyte Esterase SMALL H (NEGATIVE) Urine RBC 1-3 (0-2/HPF) Urine WBC 12-16 (0-5/HPF) Ur Epithelial Cells FEW (NONE-FEW) Urine Bacteria 3+ H (NEGATIVE) Hyaline Casts 2-4 (0-2/LPF) Urine Mucus LIGHT (NONE-MOD) 04/14/19 04/15/19 04/15/19 Range/Units 19:22 00:30 05:50 WBC 12.25 H (4.0-11.0) K/uL RBC 3.64 L (4.30-5.90) M/uL Hgb 10.7 L (12.0-16.0) g/dL Hct 33.4 L (36.0-46.0) % MCV 91.8 (80.0-98.0) fL MCH 29.4 (27.0-32.0) pg MCHC 32.0 (31.0-37.0) g/dL RDW Std Deviation 46.0 (28.0-62.0) fl RDW Coeff of Bret 14 (11.0-15.0) % Plt Count 194 (150-400) K/uL MPV 10.20 (7.40-12.00) fL Neut % (Auto) 60.3 (48.0-80.0) % Lymph % (Auto) 26.0 (16.0-40.0) % [place] % (Auto) 12.7 (0.0-15.0) % Eos % (Auto) 0.6 (0.0-7.0) % Baso % (Auto) 0.4 (0.0-1.5) % Neut # (Auto) 7.4 H (1.4-5.7) K/uL Lymph # (Auto) 3.2 H (0.6-2.4) K/uL [place] # (Auto) 1.6 H (0.0-0.8) K/uL Eos # (Auto) 0.1 (0.0-0.7) K/uL Baso # (Auto) 0.1 (0.0-0.1) K/uL Nucleated RBC % 0.0 /100WBC Nucleated RBCs # 0 K/uL Lactate 2.2 H 0.8 (0.20-2.00) mmol/L Sodium (136-145) mmol/L Potassium (3.5-5.1) mmol/L Chloride (98-107) mmol/L Carbon Dioxide (21.0-32.0) mmol/L BUN (7.0-18.0) mg/dL Creatinine (0.6-1.0) mg/dL Est Cr Clr Drug Dosing mL/min Estimated GFR (MDRD) ml/min Glucose (74-106) mg/dL POC Glucose (60-110) mg/dL Hemoglobin A1c (4.5-6.2) % Calcium (8.5-10.1) mg/dL Total Bilirubin (0.2-1.0) mg/dL AST (15-37) IU/L ALT (14-63) IU/L Alkaline Phosphatase (46-116) U/L Total Protein (6.4-8.2) g/dL Albumin (3.4-5.0) g/dL Globulin (2.6-4.0) g/dL Albumin/Globulin Ratio (0.9-1.6) Urine Color Urine Appearance Urine pH (5.0-8.0) Ur Specific [place] (1.001-1.035) Urine Protein (NEGATIVE) mg/dL Urine Glucose (UA) (NEGATIVE) mg/dL Urine Ketones (NEGATIVE) mg/dL Urine Occult Blood (NEGATIVE) Urine Nitrite (NEGATIVE) Urine Bilirubin (NEGATIVE) Urine Urobilinogen (<2.0) EU/dL Ur Leukocyte Esterase (NEGATIVE) Urine RBC (0-2/HPF) Urine WBC (0-5/HPF) Ur Epithelial Cells (NONE-FEW) Urine Bacteria (NEGATIVE) Hyaline Casts (0-2/LPF) Urine Mucus (NONE-MOD) 04/15/19 04/15/19 Range/Units 05:50 06:28 WBC (4.0-11.0) K/uL RBC (4.30-5.90) M/uL Hgb (12.0-16.0) g/dL Hct (36.0-46.0) % MCV (80.0-98.0) fL MCH (27.0-32.0) pg MCHC (31.0-37.0) g/dL RDW Std Deviation (28.0-62.0) fl RDW Coeff of Bret (11.0-15.0) % Plt Count (150-400) K/uL MPV (7.40-12.00) fL Neut % (Auto) (48.0-80.0) % Lymph % (Auto) (16.0-40.0) % [place] % (Auto) (0.0-15.0) % Eos % (Auto) (0.0-7.0) % Baso % (Auto) (0.0-1.5) % Neut # (Auto) (1.4-5.7) K/uL Lymph # (Auto) (0.6-2.4) K/uL [place] # (Auto) (0.0-0.8) K/uL Eos # (Auto) (0.0-0.7) K/uL Baso # (Auto) (0.0-0.1) K/uL Nucleated RBC % /100WBC Nucleated RBCs # K/uL Lactate (0.20-2.00) mmol/L Sodium 136 (136-145) mmol/L Potassium 3.7 (3.5-5.1) mmol/L Chloride 102 (98-107) mmol/L Carbon Dioxide 21.3 (21.0-32.0) mmol/L BUN 17 (7.0-18.0) mg/dL Creatinine 0.9 (0.6-1.0) mg/dL Est Cr Clr Drug Dosing 53.19 mL/min Estimated GFR (MDRD) > 60.0 ml/min Glucose 152 H (74-106) mg/dL POC Glucose 139 H (60-110) mg/dL Hemoglobin A1c (4.5-6.2) % Calcium 7.8 L (8.5-10.1) mg/dL Total Bilirubin 0.9 (0.2-1.0) mg/dL AST 14 L (15-37) IU/L ALT 14 (14-63) IU/L Alkaline Phosphatase 62 (46-116) U/L Total Protein 6.5 (6.4-8.2) g/dL Albumin 2.5 L (3.4-5.0) g/dL Globulin 4.0 (2.6-4.0) g/dL Albumin/Globulin Ratio 0.6 L (0.9-1.6) Urine Color Urine Appearance Urine pH (5.0-8.0) Ur Specific [place] (1.001-1.035) Urine Protein (NEGATIVE) mg/dL Urine Glucose (UA) (NEGATIVE) mg/dL Urine Ketones (NEGATIVE) mg/dL Urine Occult Blood (NEGATIVE) Urine Nitrite (NEGATIVE) Urine Bilirubin (NEGATIVE) Urine Urobilinogen (<2.0) EU/dL Ur Leukocyte Esterase (NEGATIVE) Urine RBC (0-2/HPF) Urine WBC (0-5/HPF) Ur Epithelial Cells (NONE-FEW) Urine Bacteria (NEGATIVE) Hyaline Casts (0-2/LPF) Urine Mucus (NONE-MOD) Med Orders - Current: Current Medications Acetaminophen (Tylenol) 650 mg PO Q4H PRN PRN Reason: Pain (Mild 1-3)/fever Aspirin (Aspirin) 81 mg PO DAILY [facility] Last Admin: 04/15/19 08:12 Dose: 81 mg Famotidine (Pepcid) 20 mg IVPUSH BEDTIME [facility] Last Admin: 04/14/19 20:07 Dose: 20 mg Heparin Sodium (Porcine) (Heparin Sodium) 5,000 units SUBCUT Q8H [facility] Last Admin: 04/15/19 08:12 Dose: 5,000 units Sodium Chloride (Normal Saline) 500 mls @ 999 mls/hr IV .BOLUS [facility] Last Admin: 04/14/19 16:00 Dose: 999 mls/hr Sodium Chloride (Normal Saline) 500 mls @ 999 mls/hr IV .BOLUS [facility] Sodium Chloride (Normal Saline) 1,000 mls @ 125 mls/hr IV Q8H [facility] Last Admin: 04/15/19 01:54 Dose: 125 mls/hr Piperacillin Sod/Tazobactam (Sod 3.375 gm/ Sodium Chloride) 50 mls @ 100 mls/ hr IV Q6H [facility] Vancomycin HCl 1.5 gm/ Premix 300 mls @ 200 mls/hr IV Q12H [facility] Insulin Aspart (Novolog) 0 unit SUBCUT TIDAC [facility]; Protocol Last Admin: 04/15/19 07:18 Dose: Not Given Morphine Sulfate (Morphine) 2 mg IVPUSH Q2H PRN PRN Reason: Pain (severe 7-10) Stop: 04/15/19 16:16 Ondansetron HCl (Zofran) 4 mg IVPUSH Q4H PRN PRN Reason: Nausea Oxycodone HCl (Oxycodone) 5 mg PO Q4H PRN PRN Reason: Pain Last Admin: 04/15/19 01:51 Dose: 5 mg Temazepam (Restoril) 15 mg PO BEDTIME PRN PRN Reason: Insomnia Last Admin: 04/14/19 19:55 Dose: 15 mg Vancomycin HCl (Pharmacy To Dose - Vancomycin) 1 dose .XX ASDIRECTED [facility] Discontinued Medications Sodium Chloride (Normal Saline) 1,000 mls @ 999 mls/hr IV STAT ONE Stop: 04/14/19 16:01 Last Admin: 04/14/19 15:59 Dose: Not Given Vancomycin HCl 1 gm/ Sodium (Chloride) 250 mls @ 166 mls/hr IV ONETIME ONE Stop: 04/14/19 17:09 Last Admin: 04/14/19 17:26 Dose: Not Given Sodium Chloride (Normal Saline) Confirm Administered Dose 250 mls @ as directed .ROUTE .STK-MED ONE Stop: 04/14/19 15:48 Last Admin: 04/14/19 16:03 Dose: Not Given Vancomycin HCl 1 gm/ Sodium (Chloride) 250 mls @ 166 mls/hr IV ONETIME ONE Stop: 04/14/19 17:09 Last Admin: 04/14/19 16:02 Dose: 166 mls/hr Piperacillin Sod/Tazobactam (Sod 2.25 gm/ Sodium Chloride) 50 mls @ 100 mls/hr IV Q6H [facility] Last Admin: 04/15/19 04:20 Dose: 100 mls/hr Vancomycin HCl 1.5 gm/ Premix 300 mls @ 200 mls/hr IV Q24H [facility] Last Admin: 04/15/19 05:17 Dose: 200 mls/hr Ondansetron HCl (Zofran) 4 mg IVPUSH ONETIME ONE Stop: 04/14/19 15:03 Last Admin: 04/14/19 15:19 Dose: Not Given Vancomycin HCl (Vancomycin) Confirm Administered Dose 1 gm .ROUTE .STK-MED ONE Stop: 04/14/19 15:47 Last Admin: 04/14/19 17:10 Dose: 1 gm - Exam Quality Assessment: DVT Prophylaxis. No: Supplemental Oxygen General: Alert, Oriented, Cooperative, No Acute Distress Neck: Supple Lungs: Clear to Auscultation, Normal Respiratory Effort Cardiovascular: Regular Rate, Regular Rhythm GI/Abdominal Exam: Normal Bowel Sounds, Soft, Non-Tender, Other (obese abdomen limits exam) Extremities: Normal Range of Motion, Pedal Edema (+1 to RLE) Wound/Incisions: Erythema Improving (Less bright red, but significant erythema continues with warmth and tenderness. No fluctuance noted today. Abrasions dry for the most part, small drainage from abrasion to R lateral malleolous region. Wound care consult.) Neurological: No New Focal Deficit Psy/Mental Status: Alert, Normal Affect, Normal Mood - Problem List & Annotations (1) Sepsis SNOMED Code(s): 38787057 Code(s): A41.9 - SEPSIS, UNSPECIFIED ORGANISM Status: Acute Current Visit : Yes Qualifiers: Sepsis type: sepsis due to unspecified organism Qualified Code(s): A41.9 - Sepsis, unspecified organism (2) Cellulitis SNOMED Code(s): 155373733 Code(s): L03.90 - CELLULITIS, UNSPECIFIED Status: Acute Current Visit: Yes Qualifiers: Site of cellulitis: extremity Site of cellulitis of extremity: lower extremity Laterality: right Qualified Code(s): L03.115 - Cellulitis of right lower limb (3) HTN (hypertension) SNOMED Code(s): 92691705 Code(s): I10 - ESSENTIAL (PRIMARY) HYPERTENSION Status: Chronic Current Visit: Yes Qualifiers: Hypertension type: essential hypertension Qualified Code(s): I10 - Essential (primary) hypertension (4) Obesity SNOMED Code(s): 344886000, 824937015 Code(s): E66.9 - OBESITY, UNSPECIFIED Status: Chronic Current Visit: Yes (5) History of type 2 diabetes mellitus SNOMED Code(s): 571301998 Code(s): Z86.39 - PERSONAL HISTORY OF ENDO, NUTRITIONAL AND METABOLIC DISEASE Status: Chronic Current Visit: Yes - Problem List Review Problem List Initiated/Reviewed/Updated: Yes - My Orders Last 24 Hours: My Active Orders 04/14/19 16:15 Blood Glucose Check, Bedside [RC] TIDMEALS Elevate Extremity [RC] BID Up to Chair [RC] ASDIRECTED VTE/DVT Education [RC] PER UNIT ROUTINE Vital Signs [RC] Q1H Consult to Wound Care Services [CONS] Routine Acetaminophen [Tylenol] 650 mg PO Q4H PRN Heparin Sodium 5,000 units SUBCUT Q8H Morphine 2 mg IVPUSH Q2H PRN Ondansetron [Zofran] 4 mg IVPUSH Q4H PRN Sodium Chloride 0.9% [Normal Saline] 1,000 ml IV Q8H Resuscitation Status Routine 04/14/19 16:16 Cardiac Monitoring [RC] Q8H Intake and Output [RC] QSHIFT 04/14/19 16:27 Communication Order [RC] PRN 04/14/19 16:30 Pharmacy to Dose - Vancomycin 1 dose .XX ASDIRECTED 04/14/19 16:51 oxyCODONE 5 mg PO Q4H PRN 04/14/19 17:00 Insulin Aspart [NovoLOG] See Protocol SUBCUT TIDAC 04/14/19 21:00 Famotidine [Pepcid] 20 mg IVPUSH BEDTIME 04/14/19 Dinner [employer] Diet [DIET] 04/15/19 09:00 Aspirin 81 mg PO DAILY 04/15/19 10:00 Piperacillin/Tazobactam [Piperacil-Tazobact] 3.375 gm Sodium Chloride 0.9% [ Normal Saline] 50 ml IV Q6H 04/15/19 18:00 Vancomycin/Water For Inj (Peg) [Vancomycin 1.5 GM/300 ML Bag] 1.5 gm Premix Bag 1 bag IV Q12H - Plan Plan:: This 73 year old female admitted with sepsis secondary to cellulitis to RLE 1. Sepsis: Resolved. HR and BP stable. BC pending. CXR negative and UA reveals UTI, UC pending. TA improved with hydration. 2. Cellulitis RLE: Slow improvement. Continue Vancomycin add Zosyn. leukocytosis improving. BC pending. keep leg elevated. Consult wound care. Xray negative to lower. Venous doppler negative for DVT. 3. UTI: UC pending. Continue Zosyn. 4. HTN: hypotension yesterday, Continue to hold Losartan. 5. DM Type 2: Stable BS Hold Metformin. Novolog SSI for now with meals. A1c 7.9 VTE prophylaxis: Heparin GI prophylaxis: Pepcid Dispo: 1-2 days pending improvement. Will move to Med/Surg status as patient has improved and no longer needs ICU monitoring.
[2019-04-15] MEDS: Piperacillin/Tazobactam 3.375 GM in Sodium Chloride 0.9% 50 ML IV SCH ×3 (09:07→21:20)
[2019-04-15] MEDS: VANCOMYCIN/WATER FOR INJ (PEG) 1.5 GM in Premix Bag 1 BAG IV SCH (18:46)
[2019-04-15] MEDS: Famotidine 20 MG/2 ML SDV IVPUSH SCH (21:20)
[2019-04-15] MEDS: Temazepam 15 MG Cap PO PRN (21:29)
[2019-04-16] MEDS: Piperacillin/Tazobactam 3.375 GM in Sodium Chloride 0.9% 50 ML IV SCH ×4 (04:11→22:44)
[2019-04-16] MEDS: VANCOMYCIN/WATER FOR INJ (PEG) 1.5 GM in Premix Bag 1 BAG IV SCH ×2 (05:04→18:30)
[2019-04-16 06:25] LABS: BLOOD UREA NITROGEN,BUN 13 mg/dL (7.0-18.0); CHLORIDE,CL 105 mmol/L (98-107); GLUCOSE RANDOM 138 mg/dL (74-106); POTASSIUM,K 4.2 mmol/L (3.5-5.1); SODIUM,NA 139 mmol/L (136-145)
[2019-04-16] MEDS: Insulin Aspart 100 Units/ML 3 ML Pen SUBCUT SCH ×3 (06:35→18:29)
--- NOTE | 2019-04-16 08:28 | PCM.PN ---
- General Info Date of Service: 04/16/19 Admission Dx/Problem (Free Text): Admission Diagnosis/Problem Admission Diagnosis/Problem Sepsis/Cellulitis Subjective Update: Doing better this morning. Reports back of lower R leg head still operator, warm and very red. No chest pain or SOB. Functional Status: Reports: Pain Controlled, Tolerating Diet, Ambulating, Urinating - Review of Systems General: Reports: No Symptoms. Denies: Weakness, Fatigue HEENT: Reports: No Symptoms. Denies: Dysphasia Pulmonary: Reports: No Symptoms. Denies: Shortness of Breath Cardiovascular: Reports: No Symptoms. Denies: Chest Pain Gastrointestinal: Reports: No Symptoms. Denies: Abdominal Pain, Diarrhea, Nausea, Vomiting Genitourinary: Reports: No Symptoms. Denies: Dysuria, Frequency Musculoskeletal: Reports: No Symptoms Skin: Reports: Rash (redness to RLE) Neurological: Reports: No Symptoms Psychiatric: Reports: No Symptoms - Patient Data Vitals - Most Recent: Last Vital Signs Temp 96.7 F 04/16/19 08:00 Pulse 76 04/16/19 08:00 Resp 18 04/16/19 08:00 BP 119/59 L 04/16/19 08:00 Pulse Ox 96 04/16/19 08:00 Weight - Most Recent: 122.924 kg I&O - Last 24 Hours: Intake & Output 04/15/19 04/16/19 04/16/19 22:59 06:59 14:59 Intake Total 200 100 Output Total 0 900 Balance 200 -800 Lab Results Last 24 Hours: Laboratory Results - last 24 hr 04/15/19 04/15/19 04/16/19 Range/Units 11:59 16:27 05:03 WBC (4.0-11.0) K/uL RBC (4.30-5.90) M/uL Hgb (12.0-16.0) g/dL Hct (36.0-46.0) % MCV (80.0-98.0) fL MCH (27.0-32.0) pg MCHC (31.0-37.0) g/dL RDW Std Deviation (28.0-62.0) fl RDW Coeff of Bret (11.0-15.0) % Plt Count (150-400) K/uL MPV (7.40-12.00) fL Neut % (Auto) (48.0-80.0) % Lymph % (Auto) (16.0-40.0) % [place] % (Auto) (0.0-15.0) % Eos % (Auto) (0.0-7.0) % Baso % (Auto) (0.0-1.5) % Neut # (Auto) (1.4-5.7) K/uL Lymph # (Auto) (0.6-2.4) K/uL [place] # (Auto) (0.0-0.8) K/uL Eos # (Auto) (0.0-0.7) K/uL Baso # (Auto) (0.0-0.1) K/uL Nucleated RBC % /100WBC Nucleated RBCs # K/uL Sodium (136-145) mmol/L Potassium (3.5-5.1) mmol/L Chloride (98-107) mmol/L Carbon Dioxide (21.0-32.0) mmol/L BUN (7.0-18.0) mg/dL Creatinine (0.6-1.0) mg/dL Est Cr Clr Drug Dosing mL/min Estimated GFR (MDRD) ml/min Glucose (74-106) mg/dL POC Glucose 157 H 132 H 130 H (60-110) mg/dL Calcium (8.5-10.1) mg/dL 04/16/19 04/16/19 Range/Units 05:25 05:25 WBC 7.70 (4.0-11.0) K/uL RBC 3.67 L (4.30-5.90) M/uL Hgb 10.8 L (12.0-16.0) g/dL Hct 33.7 L (36.0-46.0) % MCV 91.8 (80.0-98.0) fL MCH 29.4 (27.0-32.0) pg MCHC 32.0 (31.0-37.0) g/dL RDW Std Deviation 46.6 (28.0-62.0) fl RDW Coeff of Bret 14 (11.0-15.0) % Plt Count 212 (150-400) K/uL MPV 10.40 (7.40-12.00) fL Neut % (Auto) 56.2 (48.0-80.0) % Lymph % (Auto) 26.0 (16.0-40.0) % [place] % (Auto) 13.4 (0.0-15.0) % Eos % (Auto) 4.0 (0.0-7.0) % Baso % (Auto) 0.4 (0.0-1.5) % Neut # (Auto) 4.3 (1.4-5.7) K/uL Lymph # (Auto) 2.0 (0.6-2.4) K/uL [place] # (Auto) 1.0 H (0.0-0.8) K/uL Eos # (Auto) 0.3 (0.0-0.7) K/uL Baso # (Auto) 0.0 (0.0-0.1) K/uL Nucleated RBC % 0.0 /100WBC Nucleated RBCs # 0 K/uL Sodium 139 (136-145) mmol/L Potassium 4.2 (3.5-5.1) mmol/L Chloride 105 (98-107) mmol/L Carbon Dioxide 23.0 (21.0-32.0) mmol/L BUN 13 (7.0-18.0) mg/dL Creatinine 0.7 (0.6-1.0) mg/dL Est Cr Clr Drug Dosing 68.57 mL/min Estimated GFR (MDRD) > 60.0 ml/min Glucose 138 H (74-106) mg/dL POC Glucose (60-110) mg/dL Calcium 8.5 (8.5-10.1) mg/dL Pablo Results Last 24 Hours: Microbiology 04/14/19 15:18 Aerobic Blood Culture - Preliminary Blood - Venous - Lab Draw NO GROWTH AFTER 1 DAY Anaerobic Blood Culture - Preliminary NO GROWTH AFTER 1 DAY 04/14/19 15:03 Aerobic Blood Culture - Preliminary Blood - Venous NO GROWTH AFTER 1 DAY Anaerobic Blood Culture - Preliminary NO GROWTH AFTER 1 DAY Med Orders - Current: Current Medications Acetaminophen (Tylenol) 650 mg PO Q4H PRN PRN Reason: Pain (Mild 1-3)/fever Aspirin (Aspirin) 81 mg PO DAILY [facility] Last Admin: 04/15/19 08:12 Dose: 81 mg Famotidine (Pepcid) 20 mg IVPUSH BEDTIME [facility] Last Admin: 04/15/19 21:20 Dose: 20 mg Heparin Sodium (Porcine) (Heparin Sodium) 5,000 units SUBCUT Q8H [facility] Last Admin: 04/15/19 23:55 Dose: 5,000 units Sodium Chloride (Normal Saline) 500 mls @ 999 mls/hr IV .BOLUS [facility] Last Admin: 04/14/19 16:00 Dose: 999 mls/hr Sodium Chloride (Normal Saline) 500 mls @ 999 mls/hr IV .BOLUS [facility] Piperacillin Sod/Tazobactam (Sod 3.375 gm/ Sodium Chloride) 50 mls @ 100 mls/ hr IV Q6H [facility] Last Admin: 04/16/19 04:11 Dose: 100 mls/hr Vancomycin HCl 1.5 gm/ Premix 300 mls @ 200 mls/hr IV Q12H [facility] Last Admin: 04/16/19 05:04 Dose: 200 mls/hr Insulin Aspart (Novolog) 0 unit SUBCUT TIDAC [facility]; Protocol Last Admin: 04/16/19 06:35 Dose: Not Given Ondansetron HCl (Zofran) 4 mg IVPUSH Q4H PRN PRN Reason: Nausea Oxycodone HCl (Oxycodone) 5 mg PO Q4H PRN PRN Reason: Pain Last Admin: 04/15/19 01:51 Dose: 5 mg Temazepam (Restoril) 15 mg PO BEDTIME PRN PRN Reason: Insomnia Last Admin: 04/15/19 21:29 Dose: 15 mg Vancomycin HCl (Pharmacy To Dose - Vancomycin) 1 dose .XX ASDIRECTED [facility] Discontinued Medications Sodium Chloride (Normal Saline) 1,000 mls @ 999 mls/hr IV STAT ONE Stop: 04/14/19 16:01 Last Admin: 04/14/19 15:59 Dose: Not Given Vancomycin HCl 1 gm/ Sodium (Chloride) 250 mls @ 166 mls/hr IV ONETIME ONE Stop: 04/14/19 17:09 Last Admin: 04/14/19 17:26 Dose: Not Given Sodium Chloride (Normal Saline) Confirm Administered Dose 250 mls @ as directed .ROUTE .STK-MED ONE Stop: 04/14/19 15:48 Last Admin: 04/14/19 16:03 Dose: Not Given Vancomycin HCl 1 gm/ Sodium (Chloride) 250 mls @ 166 mls/hr IV ONETIME ONE Stop: 04/14/19 17:09 Last Admin: 04/14/19 16:02 Dose: 166 mls/hr Sodium Chloride (Normal Saline) 1,000 mls @ 125 mls/hr IV Q8H [facility] Stop: 04/15/19 12:00 Last Admin: 04/15/19 09:42 Dose: Not Given Piperacillin Sod/Tazobactam (Sod 2.25 gm/ Sodium Chloride) 50 mls @ 100 mls/hr IV Q6H [facility] Last Admin: 04/15/19 04:20 Dose: 100 mls/hr Vancomycin HCl 1.5 gm/ Premix 300 mls @ 200 mls/hr IV Q24H [facility] Last Admin: 04/15/19 05:17 Dose: 200 mls/hr Morphine Sulfate (Morphine) 2 mg IVPUSH Q2H PRN PRN Reason: Pain (severe 7-10) Stop: 04/15/19 16:16 Ondansetron HCl (Zofran) 4 mg IVPUSH ONETIME ONE Stop: 04/14/19 15:03 Last Admin: 04/14/19 15:19 Dose: Not Given Vancomycin HCl (Vancomycin) Confirm Administered Dose 1 gm .ROUTE .STK-MED ONE Stop: 04/14/19 15:47 Last Admin: 04/14/19 17:10 Dose: 1 gm - Exam Quality Assessment: DVT Prophylaxis General: Alert, Oriented, Cooperative Neck: Supple Lungs: Clear to Auscultation, Normal Respiratory Effort Cardiovascular: Regular Rate, Regular Rhythm GI/Abdominal Exam: Normal Bowel Sounds, Soft, Non-Tender Extremities: Normal Range of Motion, No Pedal Edema Wound/Incisions: No Drainage, Erythema Improving (Erythema continues to dorsal RLE with warm and redness) Neurological: No New Focal Deficit Psy/Mental Status: Alert, Normal Affect, Normal Mood - Problem List & Annotations (1) Sepsis SNOMED Code(s): 86685114 Code(s): A41.9 - SEPSIS, UNSPECIFIED ORGANISM Status: Acute Current Visit : Yes Qualifiers: Sepsis type: sepsis due to unspecified organism Qualified Code(s): A41.9 - Sepsis, unspecified organism (2) Cellulitis SNOMED Code(s): 069097056 Code(s): L03.90 - CELLULITIS, UNSPECIFIED Status: Acute Current Visit: Yes Qualifiers: Site of cellulitis: extremity Site of cellulitis of extremity: lower extremity Laterality: right Qualified Code(s): L03.115 - Cellulitis of right lower limb (3) HTN (hypertension) SNOMED Code(s): 69712151 Code(s): I10 - ESSENTIAL (PRIMARY) HYPERTENSION Status: Chronic Current Visit: Yes Qualifiers: Hypertension type: essential hypertension Qualified Code(s): I10 - Essential (primary) hypertension (4) Obesity SNOMED Code(s): 373512778, 141634626 Code(s): E66.9 - OBESITY, UNSPECIFIED Status: Chronic Current Visit: Yes (5) History of type 2 diabetes mellitus SNOMED Code(s): 897172653 Code(s): Z86.39 - PERSONAL HISTORY OF ENDO, NUTRITIONAL AND METABOLIC DISEASE Status: Chronic Current Visit: Yes - Problem List Review Problem List Initiated/Reviewed/Updated: Yes - My Orders Last 24 Hours: My Active Orders 04/15/19 08:46 Transfer Patient (Change bed) [ADT] Routine 04/15/19 09:00 Aspirin 81 mg PO DAILY 04/15/19 10:00 Piperacillin/Tazobactam [Piperacil-Tazobact] 3.375 gm Sodium Chloride 0.9% [ Normal Saline] 50 ml IV Q6H 04/15/19 10:21 Consult to Fisher Seal [CONS] Routine 04/15/19 13:51 Consult to [place] [Consult to Diabetic Nurse Specialist] [CONS] Routine 04/15/19 18:00 Vancomycin/Water For Inj (Peg) [Vancomycin 1.5 GM/300 ML Bag] 1.5 gm Premix Bag 1 bag IV Q12H 04/17/19 05:11 BMP [BASIC METABOLIC PANEL,BMP] [CHEM] AM CBC WITH AUTO DIFF [HEME] AM - Plan Plan:: This 73 year old female admitted with sepsis secondary to cellulitis to RLE 1. Cellulitis RLE: Slow improvement. Continue Vancomycin add Zosyn. leukocytosis resolved. BC pending. keep leg elevated. Consult wound care. Xray negative to lower. Venous doppler negative for DVT. 2. UTI: UC E coli. Continue Zosyn. 3. HTN: Stable. Continue to hold Losartan, restart on discharge 4. DM Type 2: Stable BS Hold Metformin. Novolog SSI for now with meals. A1c 7.9 Consult with DM educator. VTE prophylaxis: Heparin GI prophylaxis: Pepcid Dispo: 1-2 days pending improvement.
[2019-04-16] MEDS: Heparin Sodium 5,000 Units/ML Vial SUBCUT SCH ×3 (08:59→23:39)
[2019-04-16] MEDS: Aspirin 81 MG Tab.Chew PO SCH (09:01)
[2019-04-16] MEDS: Famotidine 20 MG/2 ML SDV IVPUSH SCH (20:41)
[2019-04-16] MEDS: Temazepam 15 MG Cap PO PRN (20:41)
[2019-04-17] MEDS: Piperacillin/Tazobactam 3.375 GM in Sodium Chloride 0.9% 50 ML IV SCH ×2 (03:54→09:23)
[2019-04-17] MEDS: VANCOMYCIN/WATER FOR INJ (PEG) 1.5 GM in Premix Bag 1 BAG IV SCH (05:08)
[2019-04-17 06:30] LABS: BLOOD UREA NITROGEN,BUN 14 mg/dL (7.0-18.0); CARBON DIOXIDE,CO2 23.3 mmol/L (21.0-32.0); CHLORIDE,CL 106 mmol/L (98-107); GLUCOSE RANDOM 146 mg/dL (74-106); POTASSIUM,K 4.5 mmol/L (3.5-5.1); SODIUM,NA 139 mmol/L (136-145)
[2019-04-17] MEDS: Insulin Aspart 100 Units/ML 3 ML Pen SUBCUT SCH (06:42)
[2019-04-17] MEDS: Heparin Sodium 5,000 Units/ML Vial SUBCUT SCH (09:30)
[2019-04-17] MEDS: Aspirin 81 MG Tab.Chew PO SCH (09:31)
--- NOTE | 2019-04-17 10:25 | PCM.DCSUM1 ---
<Gabino Nelson - Last Filed: 04/17/19 11:08> Discharge Summary - Hospital Course Free Text/Narrative:: 73 y/o female admitted for right lower extremity cellulitis. Started on IV vancomycin and Zosyn. She remained afebrile and cellulitis improved. WBC normalized. Her pain improved significantly. She was discharged home on Clindamycin 300 mg PO TID for 7 days. Follow-up with PCP. - Discharge Data Discharge Date: 04/17/19 Discharge Disposition: Home, Self-Care 01 Condition: Stable - Patient Summary/Data Consults: Consultations 04/14/19 16:15 Consult to Wound Care Services [CONS] Routine 04/15/19 10:21 Consult to Outboard Motor Tester [CONS] Routine 04/15/19 13:51 Consult to Sorter/Assay Tech [Consult to Diabetic Nurse Specialist] [CONS] Routine - Patient Instructions Diet: Diabetic Diet Activity: Apply Ice, As Tolerated, Elevate Extremity Notify Provider of: Fever, Increased Pain, Swelling and Redness, Drainage, Nausea and/or Vomiting - Discharge Plan *PRESCRIPTION DRUG MONITORING PROGRAM REVIEWED*: Not Applicable *COPY OF PRESCRIPTION DRUG MONITORING REPORT IN PATIENT NADIA: Not Applicable Prescriptions/Med Rec: Clindamycin HCl 300 mg PO TID 7 Days #21 capsule Home Medications: Home Meds Aspirin [[place] Aspirin] 81 mg PO DAILY 05/28/14 [History] Losartan [Cozaar] 25 mg PO BEDTIME 05/28/14 [History] metFORMIN [Glucophage] 1,000 mg PO BID 05/28/14 [History] Clindamycin HCl 300 mg PO TID 7 Days #21 capsule 04/17/19 [Rx] Patient Handouts: Clindamycin capsules Referrals: Blake Munoz MD [Primary Care Provider] - (Please call your PCP on Friday for a follow up after 1 week. ) - Discharge Summary/Plan Comment DC Time >30 min.: No - Patient Data Vitals - Most Recent: Last Vital Signs Temp 36.0 C 04/17/19 04:00 Pulse 70 04/17/19 04:00 Resp 14 04/17/19 04:00 BP 134/61 04/17/19 04:00 Pulse Ox 97 04/17/19 04:00 Weight - Most Recent: 126.189 kg I&O - Last 24 hours: Intake & Output 04/16/19 04/17/19 04/17/19 22:59 06:59 14:59 Intake Total 1000 450 50 Output Total 500 800 Balance 500 -350 50 Lab Results - Last 24 hrs: Laboratory Results - last 24 hr 04/16/19 04/16/19 04/17/19 Range/Units 11:19 16:31 05:49 WBC 7.06 (4.0-11.0) K/uL RBC 3.68 L (4.30-5.90) M/uL Hgb 10.9 L (12.0-16.0) g/dL Hct 33.6 L (36.0-46.0) % MCV 91.3 (80.0-98.0) fL MCH 29.6 (27.0-32.0) pg MCHC 32.4 (31.0-37.0) g/dL RDW Std Deviation 45.6 (28.0-62.0) fl RDW Coeff of Bret 14 (11.0-15.0) % Plt Count 243 (150-400) K/uL MPV 10.20 (7.40-12.00) fL Neut % (Auto) 54.7 (48.0-80.0) % Lymph % (Auto) 27.6 (16.0-40.0) % [place] % (Auto) 12.0 (0.0-15.0) % Eos % (Auto) 4.7 (0.0-7.0) % Baso % (Auto) 1.0 (0.0-1.5) % Neut # (Auto) 3.9 (1.4-5.7) K/uL Lymph # (Auto) 2.0 (0.6-2.4) K/uL [place] # (Auto) 0.9 H (0.0-0.8) K/uL Eos # (Auto) 0.3 (0.0-0.7) K/uL Baso # (Auto) 0.1 (0.0-0.1) K/uL Nucleated RBC % 0.0 /100WBC Nucleated RBCs # 0 K/uL Sodium (136-145) mmol/L Potassium (3.5-5.1) mmol/L Chloride (98-107) mmol/L Carbon Dioxide (21.0-32.0) mmol/L BUN (7.0-18.0) mg/dL Creatinine (0.6-1.0) mg/dL Est Cr Clr Drug Dosing mL/min Estimated GFR (MDRD) ml/min Glucose (74-106) mg/dL POC Glucose 143 H 107 (60-110) mg/dL Calcium (8.5-10.1) mg/dL 04/17/19 04/17/19 Range/Units 05:49 06:40 WBC (4.0-11.0) K/uL RBC (4.30-5.90) M/uL Hgb (12.0-16.0) g/dL Hct (36.0-46.0) % MCV (80.0-98.0) fL MCH (27.0-32.0) pg MCHC (31.0-37.0) g/dL RDW Std Deviation (28.0-62.0) fl RDW Coeff of Bret (11.0-15.0) % Plt Count (150-400) K/uL MPV (7.40-12.00) fL Neut % (Auto) (48.0-80.0) % Lymph % (Auto) (16.0-40.0) % [place] % (Auto) (0.0-15.0) % Eos % (Auto) (0.0-7.0) % Baso % (Auto) (0.0-1.5) % Neut # (Auto) (1.4-5.7) K/uL Lymph # (Auto) (0.6-2.4) K/uL [place] # (Auto) (0.0-0.8) K/uL Eos # (Auto) (0.0-0.7) K/uL Baso # (Auto) (0.0-0.1) K/uL Nucleated RBC % /100WBC Nucleated RBCs # K/uL Sodium 139 (136-145) mmol/L Potassium 4.5 (3.5-5.1) mmol/L Chloride 106 (98-107) mmol/L Carbon Dioxide 23.3 (21.0-32.0) mmol/L BUN 14 (7.0-18.0) mg/dL Creatinine 0.7 (0.6-1.0) mg/dL Est Cr Clr Drug Dosing 68.57 mL/min Estimated GFR (MDRD) > 60.0 ml/min Glucose 146 H (74-106) mg/dL POC Glucose 146 H (60-110) mg/dL Calcium 8.7 (8.5-10.1) mg/dL SYED Results - Last 24 hrs: Microbiology 04/14/19 15:18 Aerobic Blood Culture - Preliminary Blood - Venous - Lab Draw NO GROWTH AFTER 2 DAYS Anaerobic Blood Culture - Preliminary NO GROWTH AFTER 2 DAYS 04/14/19 15:03 Aerobic Blood Culture - Preliminary Blood - Venous NO GROWTH AFTER 2 DAYS Anaerobic Blood Culture - Preliminary NO GROWTH AFTER 2 DAYS 04/14/19 19:20 Urine Culture - Final Urine, Clean Catch Escherichia Coli Normal Urogenital Analisa Med Orders - Current: Current Medications Acetaminophen (Tylenol) 650 mg PO Q4H PRN PRN Reason: Pain (Mild 1-3)/fever Aspirin (Aspirin) 81 mg PO DAILY [facility] Last Admin: 04/17/19 09:31 Dose: 81 mg Famotidine (Pepcid) 20 mg IVPUSH BEDTIME [facility] Last Admin: 04/16/19 20:41 Dose: 20 mg Heparin Sodium (Porcine) (Heparin Sodium) 5,000 units SUBCUT Q8H [facility] Last Admin: 04/17/19 09:30 Dose: 5,000 units Piperacillin Sod/Tazobactam (Sod 3.375 gm/ Sodium Chloride) 50 mls @ 100 mls/ hr IV Q6H [facility] Last Admin: 04/17/19 09:23 Dose: 100 mls/hr Vancomycin HCl 1.5 gm/ Premix 300 mls @ 200 mls/hr IV Q12H [facility] Last Admin: 04/17/19 05:08 Dose: 200 mls/hr Insulin Aspart (Novolog) 0 unit SUBCUT TIDAC [facility]; Protocol Last Admin: 04/17/19 06:42 Dose: Not Given Ondansetron HCl (Zofran) 4 mg IVPUSH Q4H PRN PRN Reason: Nausea Oxycodone HCl (Oxycodone) 5 mg PO Q4H PRN PRN Reason: Pain Last Admin: 04/15/19 01:51 Dose: 5 mg Temazepam (Restoril) 15 mg PO BEDTIME PRN PRN Reason: Insomnia Last Admin: 04/16/19 20:41 Dose: 15 mg Vancomycin HCl (Pharmacy To Dose - Vancomycin) 1 dose .XX ASDIRECTED [facility] Discontinued Medications Sodium Chloride (Normal Saline) 1,000 mls @ 999 mls/hr IV STAT ONE Stop: 04/14/19 16:01 Last Admin: 04/14/19 15:59 Dose: Not Given Sodium Chloride (Normal Saline) 500 mls @ 999 mls/hr IV .BOLUS [facility] Last Admin: 04/14/19 16:00 Dose: 999 mls/hr Vancomycin HCl 1 gm/ Sodium (Chloride) 250 mls @ 166 mls/hr IV ONETIME ONE Stop: 04/14/19 17:09 Last Admin: 04/14/19 17:26 Dose: Not Given Sodium Chloride (Normal Saline) Confirm Administered Dose 250 mls @ as directed .ROUTE .STK-MED ONE Stop: 04/14/19 15:48 Last Admin: 04/14/19 16:03 Dose: Not Given Sodium Chloride (Normal Saline) 500 mls @ 999 mls/hr IV .BOLUS [facility] Vancomycin HCl 1 gm/ Sodium (Chloride) 250 mls @ 166 mls/hr IV ONETIME ONE Stop: 04/14/19 17:09 Last Admin: 04/14/19 16:02 Dose: 166 mls/hr Sodium Chloride (Normal Saline) 1,000 mls @ 125 mls/hr IV Q8H [facility] Stop: 04/15/19 12:00 Last Admin: 04/15/19 09:42 Dose: Not Given Piperacillin Sod/Tazobactam (Sod 2.25 gm/ Sodium Chloride) 50 mls @ 100 mls/hr IV Q6H [facility] Last Admin: 04/15/19 04:20 Dose: 100 mls/hr Vancomycin HCl 1.5 gm/ Premix 300 mls @ 200 mls/hr IV Q24H [facility] Last Admin: 04/15/19 05:17 Dose: 200 mls/hr Morphine Sulfate (Morphine) 2 mg IVPUSH Q2H PRN PRN Reason: Pain (severe 7-10) Stop: 04/15/19 16:16 Ondansetron HCl (Zofran) 4 mg IVPUSH ONETIME ONE Stop: 04/14/19 15:03 Last Admin: 04/14/19 15:19 Dose: Not Given Vancomycin HCl (Vancomycin) Confirm Administered Dose 1 gm .ROUTE .STK-MED ONE Stop: 04/14/19 15:47 Last Admin: 04/14/19 17:10 Dose: 1 gm <Rk Pearson J - Last Filed: 04/19/19 19:50> Discharge Summary - Patient Summary/Data Consults: Consultations 04/14/19 16:15 Consult to Wound Care Services [CONS] Routine 04/15/19 10:21 Consult to Outboard Motor Tester [CONS] Routine 04/15/19 13:51 Consult to Sorter/Assay Tech [Consult to Diabetic Nurse Specialist] [CONS] Routine - Patient Data Vitals - Most Recent: Last Vital Signs Temp 35.8 C 04/17/19 08:00 Pulse 73 04/17/19 08:00 Resp 16 04/17/19 08:00 BP 138/79 04/17/19 08:00 Pulse Ox 96 04/17/19 08:00 SYED Results - Last 24 hrs: Microbiology 04/14/19 15:18 Aerobic Blood Culture - Final Blood - Venous - Lab Draw NO GROWTH AFTER 5 DAYS Anaerobic Blood Culture - Final NO GROWTH AFTER 5 DAYS 04/14/19 15:03 Aerobic Blood Culture - Final Blood - Venous NO GROWTH AFTER 5 DAYS Anaerobic Blood Culture - Final NO GROWTH AFTER 5 DAYS Med Orders - Current: Current Medications Discontinued Medications Acetaminophen (Tylenol) 650 mg PO Q4H PRN PRN Reason: Pain (Mild 1-3)/fever Aspirin (Aspirin) 81 mg PO DAILY [facility] Last Admin: 04/17/19 09:31 Dose: 81 mg Famotidine (Pepcid) 20 mg IVPUSH BEDTIME [facility] Last Admin: 04/16/19 20:41 Dose: 20 mg Heparin Sodium (Porcine) (Heparin Sodium) 5,000 units SUBCUT Q8H [facility] Last Admin: 04/17/19 09:30 Dose: 5,000 units Sodium Chloride (Normal Saline) 1,000 mls @ 999 mls/hr IV STAT ONE Stop: 04/14/19 16:01 Last Admin: 04/14/19 15:59 Dose: Not Given Sodium Chloride (Normal Saline) 500 mls @ 999 mls/hr IV .BOLUS [facility] Last Admin: 04/14/19 16:00 Dose: 999 mls/hr Vancomycin HCl 1 gm/ Sodium (Chloride) 250 mls @ 166 mls/hr IV ONETIME ONE Stop: 04/14/19 17:09 Last Admin: 04/14/19 17:26 Dose: Not Given Sodium Chloride (Normal Saline) Confirm Administered Dose 250 mls @ as directed .ROUTE .STK-MED ONE Stop: 04/14/19 15:48 Last Admin: 04/14/19 16:03 Dose: Not Given Sodium Chloride (Normal Saline) 500 mls @ 999 mls/hr IV .BOLUS [facility] Vancomycin HCl 1 gm/ Sodium (Chloride) 250 mls @ 166 mls/hr IV ONETIME ONE Stop: 04/14/19 17:09 Last Admin: 04/14/19 16:02 Dose: 166 mls/hr Sodium Chloride (Normal Saline) 1,000 mls @ 125 mls/hr IV Q8H [facility] Stop: 04/15/19 12:00 Last Admin: 04/15/19 09:42 Dose: Not Given Piperacillin Sod/Tazobactam (Sod 2.25 gm/ Sodium Chloride) 50 mls @ 100 mls/hr IV Q6H [facility] Last Admin: 04/15/19 04:20 Dose: 100 mls/hr Vancomycin HCl 1.5 gm/ Premix 300 mls @ 200 mls/hr IV Q24H [facility] Last Admin: 04/15/19 05:17 Dose: 200 mls/hr Piperacillin Sod/Tazobactam (Sod 3.375 gm/ Sodium Chloride) 50 mls @ 100 mls/ hr IV Q6H [facility] Last Admin: 04/17/19 09:23 Dose: 100 mls/hr Vancomycin HCl 1.5 gm/ Premix 300 mls @ 200 mls/hr IV Q12H [facility] Last Admin: 04/17/19 05:08 Dose: 200 mls/hr Insulin Aspart (Novolog) 0 unit SUBCUT TIDAC [facility]; Protocol Last Admin: 04/17/19 06:42 Dose: Not Given Morphine Sulfate (Morphine) 2 mg IVPUSH Q2H PRN PRN Reason: Pain (severe 7-10) Stop: 04/15/19 16:16 Ondansetron HCl (Zofran) 4 mg IVPUSH ONETIME ONE Stop: 04/14/19 15:03 Last Admin: 04/14/19 15:19 Dose: Not Given Ondansetron HCl (Zofran) 4 mg IVPUSH Q4H PRN PRN Reason: Nausea Oxycodone HCl (Oxycodone) 5 mg PO Q4H PRN PRN Reason: Pain Last Admin: 04/15/19 01:51 Dose: 5 mg Temazepam (Restoril) 15 mg PO BEDTIME PRN PRN Reason: Insomnia Last Admin: 04/16/19 20:41 Dose: 15 mg Vancomycin HCl (Vancomycin) Confirm Administered Dose 1 gm .ROUTE .STK-MED ONE Stop: 04/14/19 15:47 Last Admin: 04/14/19 17:10 Dose: 1 gm Vancomycin HCl (Pharmacy To Dose - Vancomycin) 1 dose .XX ASDIRECTED MARK - Free Text/Narrative Note: I have evaluated the patient. I have discussed findings and treatment plan with resident. I agree with the assessment and plan outlined in the following note.
[2019-04-17 12:09] VITALS: BP 138/79; PULSE 73
== END 2019-04-17 11:00 | disposition home or self-care (01) | DRG 872 ==
LOC: MW.ED 14:51 → MW.ICU 16:03 → MW.MS 04-15 14:28
PROVIDERS: ADMIT Internal Medicine; ATTEND Internal Medicine
DX: A41.9 Sepsis, unspecified organism (principal); L03.115 Cellulitis of right lower limb; N39.0 Urinary tract infection, site not specified; N17.9 Acute kidney failure, unspecified; E11.9 Type 2 diabetes mellitus without complications; I10 Essential (primary) hypertension; E66.9 Obesity, unspecified; E80.7 Disorder of bilirubin metabolism, unspecified; Z88.2 Allergy status to sulfonamides; Z91.040 Latex allergy status; Z79.84 Long term (current) use of oral hypoglycemic drugs; Z90.710 Acquired absence of both cervix and uterus; Z79.82 Long term (current) use of aspirin; Z79.899 Other long term (current) drug therapy
CPT/HCPCS: 36415; 73590; 80053; 83036; 83605; 85025; 87040 ×2; 87088; 93971; 96361; 99285; J3370; J7040 ×3; J7050; 71045; 71045-26; 80048; 81001; 82962; 87086; 87186; 96360; 96365; A9270-GY; J1644; J1815-GY; J2543; J3490

== ENCOUNTER 2019-10-31 09:42 | Emergency (ER) | payer MEDICARE, OTHER ==
[2019-10-31] MEDS ORDERED: cefTRIAXone 1 GM in Premix Bag 1 BAG IV ONE (11:25)
[2019-10-31] MEDS ORDERED: Sodium Chloride 0.9% 1,000 ML IV ONE (11:25)
[2019-10-31 11:34] LABS: BLOOD UREA NITROGEN,BUN 13 mg/dL (7.0-18.0); CARBON DIOXIDE,CO2 23.1 mmol/L (21.0-32.0); CHLORIDE,CL 97 mmol/L (98-107); GLUCOSE RANDOM 213 mg/dL (74-106); LIPASE 74 U/L (73-393); POTASSIUM,K 3.9 mmol/L (3.5-5.1); SODIUM,NA 134 mmol/L (136-145)
--- NOTE | 2019-10-31 12:03 | CR ---
Chest: Portable view of the chest was obtained. Comparison: Prior chest x-ray of 04/14/19. Minimal atelectasis is noted within the left lung base. Lungs otherwise are clear. Heart size and mediastinum are within normal limits. Old healed right rib fracture is noted. 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 Impression: 1. Findings believed to be incidental as noted above. 2. Nothing acute is appreciated on portable chest x-ray. Diagnostic code #2 This report was dictated in [place] Standard Time
--- NOTE | 2019-10-31 12:07 | EDM.PDOC ---
ED HPI GENERAL MEDICAL PROBLEM - General Chief Complaint: General Stated Complaint: DIZZY Time Seen by Provider: 10/31/19 11:29 Source of Information: Reports: Patient - History of Present Illness INITIAL COMMENTS - FREE TEXT/NARRATIVE: Patient comes to the emergency department today with multiple complaints. 1. Patient complains of incontinence, which is not new for her. However, she says she has had increased frequency of urination since yesterday. She says the urine is malodorous. It is not burning when it comes out. 2. Patient to the nurse that she is having back pain. When I asked her about it, she stated that she has ongoing low back pain, and the pain she has today is not different from what she has had in the past. She has had no change in her ability to pass urine or stool. She said that when her back hurts, sometimes she takes Advil, but she said she does not like taking medications so she did not try anything for her back pain. The reason she did not try over-the -counter medicines. Pain is in the right low back. Is worse with certain positional changes. No associated radiation into the chest. It does not radiate into her lower extremities, and there is been no numbness, weakness, or gait difficulties in the past few days. 3. Patient complains of right groin pain. It started 2 days ago. She notes that 3 days ago, she said, "I walked all over [facility], and then into different grocery stores. This is much more walking than what I usually.) Patient has not been experiencing any swelling in her groin. No associated fevers, nausea, or vomiting. 4. Patient states that she believes she has a right leg infection. She said 2 or 3 days ago, she noticed some erythema in the medial half of her right leg. Versus some burning pain in the erythematous regions. She has not tried anything to help the pain and has no associated exacerbating or alleviating factors. 5. The triage note said something about patient being dizzy. Patient says she is not dizzy now. She says she was dizzy this morning and noticed it was worse when she went from lying to standing. It was a feeling of disequilibrium. No room spinning sensation. No associated chest pain, palpitations, speech slurring, focal weakness. She said she is not currently having the dizziness. Right Leg Pain Score (Numeric/FACES): 8 - Related Data Allergies Allergy/AdvReac Type Severity Reaction Status Date / Time Latex, Natural Rubber Allergy Hives Verified 10/31/19 10:02 sulfur Allergy Hives Uncoded 10/31/19 10:02 Home Meds: Home Meds Aspirin [[place] Aspirin] 81 mg PO DAILY 05/28/14 [History] Losartan [Cozaar] 25 mg PO BEDTIME 05/28/14 [History] metFORMIN [Glucophage] 1,000 mg PO BID 05/28/14 [History] Amoxicillin/Potassium Clav [Augmentin 875-125 Tablet] 1 each PO BID 14 Days #28 tablet 10/31/19 [Rx] Past Medical History HEENT History: Reports: None Cardiovascular History: Reports: Hypertension Respiratory History: Reports: None Gastrointestinal History: Reports: None Genitourinary History: Reports: None 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: 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 Musculoskeletal History: Reports: None Endocrine/Metabolic History: Reports: Diabetes, Type II Hematologic History: Reports: None - Infectious Disease History Infectious Disease History: Reports: Chicken Pox, Measles, Mumps - Past Surgical History Female Surgical History: Reports: Hysterectomy Social & Family History - Family History Family Medical History: Noncontributory - Tobacco Use Smoking Status *Q: Never Smoker - Caffeine Use Caffeine Use: Reports: Soda Caffeine Use Comment: "once in a while" - Recreational Drug Use Recreational Drug Use: No ED ROS GENERAL - Review of Systems Review Of Systems: See Below Constitutional: Denies: Fever, Malaise, Weakness, Fatigue HEENT: Denies: Eye Pain Respiratory: Denies: Shortness of Breath, Wheezing, Cough Cardiovascular: Denies: Chest Pain GI/Abdominal: Denies: Abdominal Pain, Black Stool, Bloody Stool, Decreased Appetite, Difficulty Swallowing : Reports: Dysuria, Frequency. Denies: Discharge, Flank Pain Musculoskeletal: Denies: Neck Pain Skin: Reports: Change in Color. Denies: Jaundice Neurological: Reports: Dizziness. Denies: Headache, Numbness, Paresthesia, Trouble Speaking, Weakness ED EXAM, GENERAL - Physical Exam Exam: See Below Free Text/Narrative:: General: alert, well appearing, no acute distress HEENT: Atraumatic, normocephalic, pupils reactive, negative for conjunctival pallor or scleral icterus, mucous membranes moist, throat clear, handling oral secretions well. Diagnosis. Neck: supple, nontender, trachea midline. Lungs: Clear to auscultation, breath sounds equal bilaterally, chest nontender. Heart: S1S2, regular, negative for clicks, rubs, or JVD. Abdomen: Soft, nondistended, nontender. Negative for masses or hepatosplenomegaly. Has mild tenderness in the right groin, but there is no swelling. No mass. No erythema or other skin discoloration. No fluctuance. Skin: warm, dry, good turgor. Much of the medial aspect of the right lower extremity is erythematous. There is no ulceration, and there is no fluctuance or lymphangitic streaking. Musculoskeletal: soft compartments. Extremities: Atraumatic, negative for cords or calf pain. Neurovascular unremarkable. Neuro: Awake, alert, oriented. Cranial nerves II through XII unremarkable. Cerebellum unremarkable. Finger to target bilaterally. Motor and sensory unremarkable throughout. Exam nonfocal. Course - Vital Signs Text/Narrative:: CBC: Mild leukocytosis with white count 12.98; otherwise unremarkable Lactate: Normal CMP: Kos elevated at 213, otherwise unremarkable Troponin: Negative Urinalysis: Trace ketones, trace blood, negative nitrite, 35-40 white blood cells, small leukocyte esterase, 4+ bacteria Chest X-ray: no acute dz Pelvis x-ray:no avulsion fx; no acute fx Right Tibia/fibula x-ray: no soft tissue gas, no acute fx right lower extremity venous Doppler: no DVT EK bpm normal sinus rhythm normal axis normal IA, QRS, QTc intervals; no acute ST changes 12:54pm Awaiting US result. Remaining studies are resulted. Tech advised that the study is still being transmitted. Diagnostic impressions: 1. Urinary tract infection 2. Chronic low back pain 3. Strain of right inguinal musculature 4. Right leg cellulitis 5. Dizziness Plan: Augmentin See primary care physician within 3 days for recheck [id number] Advil as needed for the back pain and strain of inguinal musculature Return to the emergency department for new, changing, or worsening symptoms Last Recorded V/S: Last Vital Signs Temp 96.5 F L 10/31/19 10:03 Pulse 97 10/31/19 10:03 Resp 17 10/31/19 10:03 BP 102/63 10/31/19 10:03 Pulse Ox 98 10/31/19 10:03 - Orders/Labs/Meds Orders: Active Orders 24 hr Category Date Time Status EKG Documentation Completion [RC] STAT Care 10/31/19 10:25 Active CULTURE BLOOD [BC] Stat Lab 10/31/19 10:55 Received CULTURE BLOOD [BC] Stat Lab 10/31/19 11:31 Received CULTURE URINE [RM] Stat Lab 10/31/19 10:40 Received Blood Culture x2 Reflex Set [OM.PC] Stat Oth 10/31/19 11:22 Ordered Labs: Laboratory Tests 10/31/19 10/31/19 10/31/19 Range/Units 10:40 10:55 10:55 WBC 12.98 H (4.0-11.0) K/uL RBC 4.36 (4.30-5.90) M/uL Hgb 12.3 (12.0-16.0) g/dL Hct 37.3 (36.0-46.0) % MCV 85.6 (80.0-98.0) fL MCH 28.2 (27.0-32.0) pg MCHC 33.0 (31.0-37.0) g/dL RDW Std Deviation 43.4 (28.0-62.0) fl RDW Coeff of Bret 14 (11.0-15.0) % Plt Count 324 (150-400) K/uL MPV 10.30 (7.40-12.00) fL Add Manual Diff YES Neutrophils % (Manual) 77 (48.0-80.0) % Band Neutrophils % 3 % Lymphocytes % (Manual) 17 (16.0-40.0) % Monocytes % (Manual) 3 (0.0-15.0) % Nucleated RBC % 0.0 /100WBC Absolute Seg Neuts 10.0 H (1.4-5.7) Band Neutrophils # 0.4 Lymphocytes # (Manual) 2.2 (0.6-2.4) Monocytes # (Manual) 0.4 (0.0-0.8) Nucleated RBCs # 0 K/uL Lactate (0.20-2.00) mmol/L Sodium 134 L (136-145) mmol/L Potassium 3.9 (3.5-5.1) mmol/L Chloride 97 L (98-107) mmol/L Carbon Dioxide 23.1 (21.0-32.0) mmol/L BUN 13 (7.0-18.0) mg/dL Creatinine 1.0 (0.6-1.0) mg/dL Est Cr Clr Drug Dosing 45.50 mL/min Estimated GFR (MDRD) 54.1 ml/min Glucose 213 H (74-106) mg/dL Calcium 9.0 (8.5-10.1) mg/dL Total Bilirubin 0.8 (0.2-1.0) mg/dL AST 12 L (15-37) IU/L ALT 15 (14-63) IU/L Alkaline Phosphatase 83 (46-116) U/L Troponin I < 0.050 (0.000-0.056) ng/mL Total Protein 8.3 H (6.4-8.2) g/dL Albumin 3.4 (3.4-5.0) g/dL Globulin 4.9 H (2.6-4.0) g/dL Albumin/Globulin Ratio 0.7 L (0.9-1.6) Lipase 74 (73-393) U/L Urine Color DARK YELLOW Urine Appearance CLOUDY Urine pH 6.0 (5.0-8.0) Ur Specific [place] 1.020 (1.001-1.035) Urine Protein 100 H (NEGATIVE) mg/dL Urine Glucose (UA) NEGATIVE (NEGATIVE) mg/dL Urine Ketones TRACE H (NEGATIVE) mg/dL Urine Occult Blood TRACE-INTACT H (NEGATIVE) Urine Nitrite NEGATIVE (NEGATIVE) Urine Bilirubin SMALL H (NEGATIVE) Urine Ictotest NEGATIVE Urine Urobilinogen 1.0 (<2.0) EU/dL Ur Leukocyte Esterase SMALL H (NEGATIVE) U Hyaline Cast (Auto) 1-3 (0-2/LPF) Urine RBC 0-3 (0-2/HPF) Urine WBC 35-40 (0-5/HPF) Ur Epithelial Cells MODERATE (NONE-FEW) Urine Bacteria 4+ H (NEGATIVE) Urine Mucus LIGHT (NONE-MOD) 10/31/19 Range/Units 10:55 WBC (4.0-11.0) K/uL RBC (4.30-5.90) M/uL Hgb (12.0-16.0) g/dL Hct (36.0-46.0) % MCV (80.0-98.0) fL MCH (27.0-32.0) pg MCHC (31.0-37.0) g/dL RDW Std Deviation (28.0-62.0) fl RDW Coeff of Bret (11.0-15.0) % Plt Count (150-400) K/uL MPV (7.40-12.00) fL Add Manual Diff Neutrophils % (Manual) (48.0-80.0) % Band Neutrophils % % Lymphocytes % (Manual) (16.0-40.0) % Monocytes % (Manual) (0.0-15.0) % Nucleated RBC % /100WBC Absolute Seg Neuts (1.4-5.7) Band Neutrophils # Lymphocytes # (Manual) (0.6-2.4) Monocytes # (Manual) (0.0-0.8) Nucleated RBCs # K/uL Lactate 1.8 (0.20-2.00) mmol/L Sodium (136-145) mmol/L Potassium (3.5-5.1) mmol/L Chloride (98-107) mmol/L Carbon Dioxide (21.0-32.0) mmol/L BUN (7.0-18.0) mg/dL Creatinine (0.6-1.0) mg/dL Est Cr Clr Drug Dosing mL/min Estimated GFR (MDRD) ml/min Glucose (74-106) mg/dL Calcium (8.5-10.1) mg/dL Total Bilirubin (0.2-1.0) mg/dL AST (15-37) IU/L ALT (14-63) IU/L Alkaline Phosphatase (46-116) U/L Troponin I (0.000-0.056) ng/mL Total Protein (6.4-8.2) g/dL Albumin (3.4-5.0) g/dL Globulin (2.6-4.0) g/dL Albumin/Globulin Ratio (0.9-1.6) Lipase (73-393) U/L Urine Color Urine Appearance Urine pH (5.0-8.0) Ur Specific [place] (1.001-1.035) Urine Protein (NEGATIVE) mg/dL Urine Glucose (UA) (NEGATIVE) mg/dL Urine Ketones (NEGATIVE) mg/dL Urine Occult Blood (NEGATIVE) Urine Nitrite (NEGATIVE) Urine Bilirubin (NEGATIVE) Urine Ictotest Urine Urobilinogen (<2.0) EU/dL Ur Leukocyte Esterase (NEGATIVE) U Hyaline Cast (Auto) (0-2/LPF) Urine RBC (0-2/HPF) Urine WBC (0-5/HPF) Ur Epithelial Cells (NONE-FEW) Urine Bacteria (NEGATIVE) Urine Mucus (NONE-MOD) Meds: Medications Discontinued Medications Generic Name Dose Route Start Last Admin Trade Name Freq PRN Reason Stop Dose Admin Sodium Chloride 1,000 mls @ 999 mls/hr 10/31/19 11:25 10/31/19 12:56 Normal Saline IV 10/31/19 12:25 999 mls/hr STAT ONE Administration Ceftriaxone Sodium/Dextrose 1 50 mls @ 100 mls/hr 10/31/19 11:25 10/31/19 12: 56 gm/ Premix IV 10/31/19 11:54 100 mls/hr ONETIME ONE Administration Departure - Departure Time of Disposition: 14:01 Disposition: Home, Self-Care 01 Condition: Good Clinical Impression: UTI, Urinary tract infectious disease, Muscle strain, Dizziness Cellulitis Qualifiers: Site of cellulitis: extremity Site of cellulitis of extremity: lower extremity Laterality: right Qualified Code(s): L03.115 - Cellulitis of right lower limb Back pain Qualifiers: Back pain location: low back pain Chronicity: chronic Back pain laterality: unspecified Sciatica presence: without sciatica Qualified Code(s): M54.5 - Low back pain; G89.29 - Other chronic pain - Discharge Information Prescriptions: Amoxicillin/Potassium Clav [Augmentin 875-125 Tablet] 1 each PO BID 14 Days #28 tablet Instructions: Cellulitis, Adult, Back Exercises, Musculoskeletal Pain, Back Injury Prevention, [id number], Urinary Tract Infection, Adult Referrals: Blake Munoz MD [Primary Care Provider] - 3 Days (Follow-up with your family doctor within 1 to 3 days.) Forms: ED Department Discharge, ED Summary Discharge Additional Instructions: Take the Augmentin as prescribed to treat the infection in your urine and the infection of the skin on your leg. For your back pain and the muscle strain pain in your right groin region, take 1 or 2 of the [id number] Advil tablets with food every 8 hours as needed for up to 5 days. Please see your family doctor regarding the aches, pains, and dizziness that brought here to the emergency department. The following information is given to patients seen in the emergency department who are being discharged to home. This information is to outline your options for follow-up care. We provide all patients seen in our emergency department with a follow-up referral. The need for follow-up, as well as the timing and circumstances, are variable depending upon the specifics of your emergency department visit. If you don't have a primary care physician on staff, we will provide you with a referral. We always advise you to contact your personal physician following an emergency department visit to inform them of the circumstance of the visit and for follow-up with them and/or the need for any referrals to a consulting specialist. The emergency department will also refer you to a specialist when appropriate. This referral assures that you have the opportunity for follow-up care with a specialist. All of these measure are taken in an effort to provide you with optimal care, which includes your follow-up. Under all circumstances we always encourage you to contact your private physician who remains a resource for coordinating your care. When calling for follow-up care, please make the office aware that this follow-up is from your recent emergency room visit. If for any reason you are refused follow-up, please contact the [facility] Emergency Department at and ask to speak to the emergency department charge nurse. Sepsis Event Note - Evaluation Sepsis Screening Result: No Definite Risk - Focused Exam Vital Signs: Vital Signs Temp Pulse Resp BP Pulse Ox 10/31/19 10:03 96.5 F L 97 17 102/63 98 Date Exam was Performed: 10/31/19 Time Exam was Performed: 14:01 - My Orders Last 24 Hours: My Active Orders 10/31/19 10:40 CULTURE URINE [RM] Stat - Assessment/Plan Last 24 Hours: My Active Orders 10/31/19 10:40 CULTURE URINE [RM] Stat
--- NOTE | 2019-10-31 12:39 | CR ---
Pelvis: AP view of the pelvis was obtained. Comparison: No previous pelvis study. Slight joint space narrowing is noted within the left hip. Mild deformity of the pubic symphysis is seen believed to be incidental. Mild degenerative change is noted within the right sacroiliac joint. Mild endplate osteophytes are seen within the lower lumbar spine. Bony structures are osteopenic. No acute fracture or other abnormality is seen. Impression: 1. Osteopenia and degenerative change as noted above. 2. Nothing acute is appreciated. Diagnostic code #2 This report was dictated in [place] Standard Time
--- NOTE | 2019-10-31 12:39 | CR ---
Right tibia and fibula: AP and lateral views of the right tibia and fibula were obtained. Comparison: No previous study. Severe medial joint space narrowing is noted within the knee. Osteophytes are noted off the lateral compartment of the knee. Extensive soft tissue calcification is seen. Bony structures are osteopenic. Spur is noted off the plantar margin of the calcaneus as well as at the attachment of the Achilles tendon. Degenerative change is noted within the mid foot. No acute fracture or other abnormality is seen. No soft tissue air is identified. Impression: 1. Findings as noted above. 2. Nothing acute is appreciated. Diagnostic code #2 This report was dictated in [place] Standard Time
--- NOTE | 2019-10-31 12:58 | US ---
Right lower extremity deep venous ultrasound: Duplex and color Doppler evaluation was obtained of the right common femoral, superficial femoral, popliteal, posterior tibial and anterior tibial veins. Findings: Varicosities are seen within the calf. These varicosities appear to be patent. Deep vein show normal augmentation, phasic flow and compression. Stable lymph node is noted within the right groin from previous exam. Impression: 1. Varicosities within the calf which appear patent. 2. Stable lymph node within the right groin from prior study. 3. No findings of deep venous thrombosis is seen within the right lower extremity. Diagnostic code #2 This report was dictated in [place] Standard Time
[2019-10-31 16:50] VITALS: BP 163/86; PULSE 88
== END 2019-10-31 14:20 | disposition home or self-care (01) ==
LOC: MW.ED 09:42
DX: S39.011A Strain of muscle, fascia and tendon of abdomen, initial encounter (principal); N39.0 Urinary tract infection, site not specified; R42 Dizziness and giddiness; L03.115 Cellulitis of right lower limb; M54.5 Low back pain; G89.29 Other chronic pain; I10 Essential (primary) hypertension; E11.9 Type 2 diabetes mellitus without complications; Z88.8 Allergy status to other drugs, medicaments and biological substances; Z91.040 Latex allergy status; Z79.82 Long term (current) use of aspirin; Z79.899 Other long term (current) drug therapy; Z79.84 Long term (current) use of oral hypoglycemic drugs; X58.XXXA Exposure to other specified factors, initial encounter; Y93.01 Activity, walking, marching and hiking; Y92.512 Supermarket, store or market as the place of occurrence of the external cause
CPT/HCPCS: 36415; 71045; 72170; 73590; 80053; 81001; 83605; 83690; 84484; 85025; 87040; 87086; 87088; 87186; 93005; 93971; 96365; 99284; J0696; J7030

== ENCOUNTER → 2020-06-26 | Day surgery (SDC) | payer MEDICARE, OTHER ==
[~2020-06-26] MED LIST: Lactated Ringers 1,000 ML IV SCH; Propofol 200 MG/20 ML SDV ONE
--- NOTE | 2020-06-26 07:12 | PCM.PREANE ---
Preanesthetic Assessment - Anesthesia/Transfusion/Family Hx Anesthesia History: Prior Anesthesia Without Reaction Family History of Anesthesia Reaction: No Transfusion History: No Prior Transfusion(s) Intubation History: Unknown - Review of Systems General: No Symptoms Pulmonary: No Symptoms Cardiovascular: No Symptoms Gastrointestinal: No Symptoms Neurological: No Symptoms Other: Reports: None - Physical Assessment Height: 5 ft 6 in Weight: 120.656 kg ASA Class: 2 Mental Status: Alert & Oriented x3 Airway Class: Mallampati = 2 Dentition: Reports: Dentures (upper), Partial (lower) Thyro-Mental Finger Breadths: 2 Mouth Opening Finger Breadths: 3 ROM/Head Extension: Limited/Partial Lungs: Clear to Auscultation, Normal Respiratory Effort Cardiovascular: Regular Rate, Regular Rhythm - Allergies Allergies/Adverse Reactions: Allergies Allergy/AdvReac Type Severity Reaction Status Date / Time Latex, Natural Rubber Allergy Hives Verified 06/21/20 08:12 lisinopril Allergy Swelling Verified 06/21/20 08:12 Sulfa (Sulfonamide Allergy Hives Verified 06/21/20 08:12 Antibiotics) - Blood Blood Available: No - Anesthesia Plan Pre-Op Medication Ordered: None - Acknowledgements Anesthesia Type Planned: MAC Pt an Appropriate Candidate for the Planned Anesthesia: Yes Alternatives and Risks of Anesthesia Discussed w Pt/Guardian: Yes Pt/Guardian Understands and Agrees with Anesthesia Plan: Yes PreAnesthesia Questionnaire HEENT History: Reports: Other (See Below) Other HEENT History: wears glasses, top denture, lower partial Cardiovascular History: Reports: Hypertension Respiratory History: Reports: None Gastrointestinal History: Reports: None Genitourinary History: Reports: UTI, 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: Musculoskeletal History: Reports: Osteoarthritis Neurological History: Reports: None Psychiatric History: Reports: Depression Endocrine/Metabolic History: Reports: Diabetes, Type II, Obesity/BMI 30+ (BMI 42.9) Hematologic History: Reports: Anemia Immunologic History: Reports: None Oncologic (Cancer) History: Reports: None Dermatologic History: Reports: Other (See Below) Other Dermatologic History: "small open area to right lower leg" - Infectious Disease History Infectious Disease History: Reports: Chicken Pox, Measles, Mumps - Past Surgical History Head Surgeries/Procedures: Reports: None HEENT Surgical History: Reports: Tonsillectomy Cardiovascular Surgical History: Reports: None Respiratory Surgical History: Reports: None GI Surgical History: Reports: Colonoscopy (), EGD (') Female Surgical History: Reports: Section (x2), Hysterectomy Endocrine Surgical History: Reports: None Neurological Surgical History: Reports: None Musculoskeletal Surgical History: Reports: None Oncologic Surgical History: Reports: None Dermatological Surgical History: Reports: None - SUBSTANCE USE Smoking Status *Q: Never Smoker Recreational Drug Use History: No - HOME MEDS Home Medications: Home Meds Aspirin [[place] Aspirin] 81 mg PO DAILY 05/28/14 [History] Losartan [Cozaar] 25 mg PO BEDTIME 05/28/14 [History] metFORMIN [Glucophage] 1,000 mg PO BID 05/28/14 [History] Furosemide 40 mg PO ASDIRECTED PRN 04/24/20 [History] Latanoprost 1 drop EYEBOTH BEDTIME 04/24/20 [History] Magnesium Oxide [Magnesium] 400 mg PO DAILY 04/24/20 [History] Potassium Gluconate [Potassium] 3 tab PO DAILY 04/24/20 [History] - CURRENT (IN HOUSE) MEDS Current Meds: Current Medications Lactated Ringer's (Ringers, Lactated) 1,000 mls @ 125 mls/hr IV ASDIRECTED MARK Discontinued Medications Lactated Ringer's (Ringers, Lactated) 1,000 mls @ 125 mls/hr IV ASDIRECTED MARK
--- NOTE | 2020-06-26 09:13 | PCM.OPNOTE ---
- General Post-Op/Procedure Note Date of Surgery/Procedure: 06/26/20 Operative Procedure(s): Esophagogastroduodenoscopy with gastric biopsies. Colonoscopy with biopsy cecal mass and cold rectal polypectomy. Pre Op Diagnosis: Anemia. Hemoccult-positive stool. Post-Op Diagnosis: Moderate acute and chronic gastritis with superficial gastric ulceration. Cecal mass. Rectal polyp. Sigmoid diverticulosis. Anesthesia Technique: MAC (ASA III) Primary Surgeon: Shahzad Solo Nut Sheller Machine Operator: Virgilio Lancaster Condition: Good Free Text/Narrative:: DICTATION [id number] CPT CODE 24786/96010
--- NOTE | 2020-06-26 09:46 | PCM.POSTAN ---
POST ANESTHESIA ASSESSMENT - MENTAL STATUS Mental Status: Alert, Oriented - VITAL SIGNS Vital Signs: Last Vital Signs Temp 36.5 C 06/26/20 09:03 Pulse 67 06/26/20 09:17 Resp 16 06/26/20 09:17 BP 131/68 06/26/20 09:17 Pulse Ox 98 06/26/20 09:17 - RESPIRATORY Respiratory Status: Respiratory Rate WNL, Airway Patent, O2 Saturation Stable - CARDIOVASCULAR CV Status: Pulse Rate WNL, Blood Pressure Stable - GASTROINTESTINAL GI Status: No Symptoms - PAIN Pain Score: 0 - POST OP HYDRATION Hydration Status: Adequate & Stable - OBSERVATIONS Free Text/Narrative:: No anesthesia problems
--- NOTE | 2020-06-26 10:15 | PCM48HPAN ---
Post Anesthesia Note - EVALUATION WITHIN 48HRS OF ANESTHETIC Vital Signs in Normal Range: Yes Patient Participated in Evaluation: Yes Respiratory Function Stable: Yes Airway Patent: Yes Cardiovascular Function Stable: Yes Hydration Status Stable: Yes Pain Control Satisfactory: Yes Nausea and Vomiting Control Satisfactory: Yes Mental Status Recovered: Yes Vital Signs: Last Vital Signs Temp 36.5 C 06/26/20 09:03 Pulse 67 06/26/20 09:17 Resp 16 06/26/20 09:17 BP 131/68 06/26/20 09:17 Pulse Ox 98 06/26/20 09:17 - COMMENTS/OBSERVATIONS Free Text/Narrative:: No anesthesia problems
--- NOTE | 2020-06-26 11:34 | OR ---
SURGEON: Shahzad oSlo M.D. DATE OF PROCEDURE: 06/26/2020 OPERATION PERFORMED: Colonoscopy with biopsy of cecal mass and cold rectal polypectomy. PRIMARY SURGEON: Shahzad Solo MD ANESTHESIA: MAC. ASA CLASSIFICATION: III. PREOPERATIVE DIAGNOSIS: New-onset anemia with Hemoccult-positive stool. POSTOPERATIVE DIAGNOSES: 1. Cecal tumor. 2. Rectal polyp. 3. Sigmoid diverticulosis. DESCRIPTION OF PROCEDURE: With the patient maintained in the left lateral decubitus position, the colonoscope was inserted into the rectum and advanced with moderate difficulty to the cecum. I came into a cecal mass and so I cannot be 100% certain that I got above this area, but the area was tight, and I could not get any further. Multiple biopsies of the cecal tumor were obtained along with photographs. Despite multiple maneuvers, I could not get the colonoscope retroflexed. The colonoscope was then straightened and slowly withdrawn. The ascending colon, hepatic flexure, transverse colon, splenic flexure, and descending colon showed no tumors, polyps, diverticula, or angiodysplastic changes. Sigmoid colon demonstrated diverticular changes. No stricture, spasm, or bleeding was noted. Once the colonoscope was withdrawn to the rectum, it was retroflexed to visualize the anal orifice from above. A polyp was encountered in the rectum. This was quite soft and was removed with multiple bites of the cold biopsy forceps and sent for separate histologic analysis. The colonoscope was then straightened, the rectum irrigated and aspirated. The colonoscope was then removed with the patient having tolerated the procedure well. She was taken to recovery room in stable condition. ESTER / JERRICA /[id number]
[2020-06-26 11:52] VITALS: BP 141/72; PULSE 71
--- NOTE | 2020-06-26 13:41 | OR ---
SURGEON: Shahzad Solo M.D. DATE OF PROCEDURE: 06/26/2020 OPERATION PERFORMED: Esophagogastroduodenoscopy with gastric biopsy. PRIMARY SURGEON: Shahzad Solo MD ANESTHESIA: MAC. ASA CLASSIFICATION: III. PREOPERATIVE DIAGNOSIS: New-onset anemia with Hemoccult-positive stool. POSTOPERATIVE DIAGNOSIS: Acute on chronic gastritis with superficial distal gastric ulcerations. DESCRIPTION OF PROCEDURE: The patient was taken to the endoscopy room and positioned on the endoscopy table in the left lateral decubitus position. Time-out was called for appropriate identification of the patient and procedure. Monitored anesthesia care was provided. The bite block was placed between the patient's teeth. The gastroscope was inserted through the bite block into the oropharynx and advanced without difficulty through the esophagus and stomach into the duodenum where examination was carried out in a retrograde fashion. The duodenum showed no acute inflammatory changes or ulcerations. No blood was seen in the duodenum. The gastroscope was withdrawn into the stomach, which did show a mild to moderate acute chronic gastritis with superficial ulcerations. Biopsies of the antrum were obtained. The gastroscope was retroflexed to visualize the proximal stomach and cardia. No lesions were noted proximally. No polyps were seen within the stomach. The gastroscope was then straightened and slowly withdrawn carefully visualizing the greater and lesser curvatures. No ulcerations were noted proximally. The GE junction was well defined and showed no acute inflammatory changes. The esophagus demonstrated good contractility. No mid or proximal lesions were identified. The vocal cords were visualized as the scope was withdrawn. The gastroscope was then removed with the patient having tolerated this portion of the procedure well. Following colonoscopy, she was taken to recovery room in satisfactory condition. ESTER / JERRICA /[id number]
== END | disposition home or self-care (01) ==
LOC: MW.SDS 06:34
PROVIDERS: ATTEND Surgery
DX: D12.8 Benign neoplasm of rectum (principal); D64.9 Anemia, unspecified; K29.50 Unspecified chronic gastritis without bleeding; A04.8 Other specified bacterial intestinal infections; K63.89 Other specified diseases of intestine; E11.9 Type 2 diabetes mellitus without complications; I10 Essential (primary) hypertension; E66.01 Morbid (severe) obesity due to excess calories; Z88.8 Allergy status to other drugs, medicaments and biological substances; Z91.040 Latex allergy status; Z79.899 Other long term (current) drug therapy; Z79.84 Long term (current) use of oral hypoglycemic drugs; Z98.890 Other specified postprocedural states; Z68.41 Body mass index [BMI] 40.0-44.9, adult; Z88.2 Allergy status to sulfonamides
CPT/HCPCS: 36415; 43239; 45380; 82378; 88305; 88312; J2704; J7120

== ENCOUNTER 2020-08-28 08:23 | Day surgery (SDC) | payer MEDICARE, OTHER ==
[~2020-08-28 08:23] MED LIST changes: -Propofol 200 MG/20 ML SDV ONE; +ceFAZolin 2 GM in Premix Bag 1 BAG IV SCH
[2020-08-28] MEDS ORDERED: Propofol 200 MG/20 ML SDV ONE (09:14)
[2020-08-28] MEDS ORDERED: Midazolam 1 MG/ML 2 ML SDV ONE (09:15)
[2020-08-28] MEDS ORDERED: fentaNYL 100 MCG/2 ML SDV ONE ×2 (09:15→11:32)
--- NOTE | 2020-08-28 09:18 | PCM.PREANE ---
Preanesthetic Assessment - Anesthesia/Transfusion/Family Hx Anesthesia History: Prior Anesthesia Without Reaction Family History of Anesthesia Reaction: No Transfusion History: Prior Transfusion Without Reaction Intubation History: Unknown - Review of Systems General: No Symptoms Pulmonary: No Symptoms Cardiovascular: No Symptoms Gastrointestinal: No Symptoms Neurological: No Symptoms Other: Reports: None - Physical Assessment Height: 5 ft 6 in Weight: 114.759 kg ASA Class: 3 Mental Status: Alert & Oriented x3 Airway Class: Mallampati = 2 Dentition: Reports: Dentures (upper), Partial (lower) Thyro-Mental Finger Breadths: 2 Mouth Opening Finger Breadths: 2 ROM/Head Extension: Limited/Partial Lungs: Clear to Auscultation, Normal Respiratory Effort Cardiovascular: Regular Rate, Regular Rhythm - Allergies Allergies/Adverse Reactions: Allergies Allergy/AdvReac Type Severity Reaction Status Date / Time Latex, Natural Rubber Allergy Hives Verified 08/22/20 09:55 lisinopril Allergy Swelling Verified 08/22/20 09:55 Sulfa (Sulfonamide Allergy Hives Verified 08/22/20 09:55 Antibiotics) - Blood Blood Available: No - Anesthesia Plan Pre-Op Medication Ordered: None - Acknowledgements Anesthesia Type Planned: General Anesthesia Pt an Appropriate Candidate for the Planned Anesthesia: Yes Alternatives and Risks of Anesthesia Discussed w Pt/Guardian: Yes Pt/Guardian Understands and Agrees with Anesthesia Plan: Yes PreAnesthesia Questionnaire HEENT History: Reports: Other (See Below) Other HEENT History: wears glasses, top denture, lower partial Cardiovascular History: Reports: Hypertension Respiratory History: Reports: None Gastrointestinal History: Reports: Colon Polyp, Other (See Below) Other Gastrointestinal History: colorectal cancer with mets to liver Genitourinary History: Reports: UTI, 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 A1c around 7), Obesity/BMI 30+ Hematologic History: Reports: Anemia, Blood Transfusion(s) Immunologic History: Reports: None Oncologic (Cancer) History: Reports: Colon, Liver Other Oncologic History: colorectal cancer with mets to liver Dermatologic History: Reports: None - Infectious Disease History Infectious Disease History: Reports: Chicken Pox, Measles, Mumps - Past Surgical History Head Surgeries/Procedures: Reports: None HEENT Surgical History: Reports: Tonsillectomy Cardiovascular Surgical History: Reports: None Respiratory Surgical History: Reports: None GI Surgical History: Reports: Colonoscopy, EGD, Other (See Below) Other GI Surgeries/Procedures: laparoscopic hemicolectomy in [place] Jul 17 2020 Female Surgical History: Reports: Section (x2), Hysterectomy Endocrine Surgical History: Reports: None Neurological Surgical History: Reports: None Musculoskeletal Surgical History: Reports: None Oncologic Surgical History: Reports: Other (See Below) Other Oncologic Surgeries/Procedures: laparoscopic rt hemicolectomy on Jul 17, 2020 Dermatological Surgical History: Reports: None - SUBSTANCE USE Tobacco Use Status *Q: Never Tobacco User Recreational Drug Use History: No - HOME MEDS Home Medications: Home Meds Aspirin [[place] Aspirin] 81 mg PO DAILY 05/28/14 [History] Losartan [Cozaar] 25 mg PO BEDTIME 05/28/14 [History] metFORMIN [Glucophage] 1,000 mg PO BID 05/28/14 [History] Latanoprost 1 drop EYEBOTH BEDTIME 04/24/20 [History] Magnesium Oxide [Magnesium] 400 mg PO DAILY 04/24/20 [History] Bismuth Subsalicylate [Pepto-Bismol] 15 ml PO ASDIRECTED PRN 08/22/20 [History] Potassium Gluconate [Potassium] 99 mg PO DAILY 08/22/20 [History] - CURRENT (IN HOUSE) MEDS Current Meds: Current Medications Cefazolin Sodium/Dextrose 2 gm (/ Premix) 50 mls @ 100 mls/hr IV ONETIME MARK Lactated Ringer's (Ringers, Lactated) 1,000 mls @ 125 mls/hr IV ASDIRECTED MARK
[2020-08-28] MEDS ORDERED: Ketorolac 30 MG/ML SDV ONE (09:36)
[2020-08-28] MEDS ORDERED: Lidocaine 1% 20 ML MDV ONE (10:26)
[2020-08-28] MEDS ORDERED: Bupivacaine 0.5% 30 ML SDV ONE (10:26)
[2020-08-28] MEDS ORDERED: Heparin Sodium 100 Units/ML 3 ML Syringe ONE (10:26)
[2020-08-28] MEDS ORDERED: ceFAZolin/Dextrose,Iso-Osmotic 2 GM/50 ML Duplex Bag IV ONE (10:47)
[2020-08-28] MEDS ORDERED: Labetalol 100 MG/20 ML MDV ONE (11:33)
[2020-08-28] MEDS ORDERED: Acetaminophen/HYDROcodone 325-10 MG Tab PO PRN (12:35)
--- NOTE | 2020-08-28 12:41 | PCM.OPNOTE ---
- General Post-Op/Procedure Note Date of Surgery/Procedure: 08/28/20 Operative Procedure(s): Placement of [place] Pre Op Diagnosis: Metastatic adenocarcinoma of the colon Post-Op Diagnosis: Same Anesthesia Technique: General ET Tube (ASA III) Primary Surgeon: Shahzad Solo Fluid Replacement, Intraop: 1,100 EBL in mLs: 20 Condition: Good Free Text/Narrative:: DICTATION [id number] CPT CODE 11137
[2020-08-28] MEDS: fentaNYL 100 MCG/2 ML SDV IVPUSH PRN ×2 (12:43→12:52)
[2020-08-28] MEDS ORDERED: Lactated Ringers 1,000 ML IV SCH (12:45)
--- NOTE | 2020-08-28 13:29 | CR ---
INDICATION: Post port placement. COMPARISON: October 31, 2019 TECHNIQUE: Single-view portable chest radiograph FINDINGS: TUBES AND LINES: Left-sided port ending in the SVC HEART AND MEDIASTINUM: The heart size is normal. The mediastinal contour appears normal for patient age. LUNGS AND PLEURAL SPACES: The lungs appear normal.The pleural spaces are unremarkable. OSSEOUS STRUCTURES: Age-appropriate appearance. No acute focal finding. IMPRESSION: Left-sided port ending in the SVC. No pneumothorax. Dictated by Michael Franks MD @ Aug 28 2020 1:27PM Signed by Dr. Michael Franks @ Aug 28 2020 1:28PM
--- NOTE | 2020-08-28 13:57 | PCM.POSTAN ---
POST ANESTHESIA ASSESSMENT - MENTAL STATUS Mental Status: Alert, Oriented - VITAL SIGNS Vital Signs: Last Vital Signs Temp 36.5 C 08/28/20 09:40 Pulse 98 08/28/20 12:58 Resp 12 08/28/20 12:58 BP 126/57 L 08/28/20 12:58 Pulse Ox 96 08/28/20 12:58 - RESPIRATORY Respiratory Status: Respiratory Rate WNL, Airway Patent, O2 Saturation Stable - CARDIOVASCULAR CV Status: Pulse Rate WNL, Blood Pressure Stable - GASTROINTESTINAL GI Status: No Symptoms - PAIN Pain Score: 5 - POST OP HYDRATION Hydration Status: Adequate & Stable - OBSERVATIONS Free Text/Narrative:: no anesthesia problems
--- NOTE | 2020-08-28 14:14 | PCM48HPAN ---
Post Anesthesia Note - EVALUATION WITHIN 48HRS OF ANESTHETIC Vital Signs in Normal Range: Yes Patient Participated in Evaluation: Yes Respiratory Function Stable: Yes Airway Patent: Yes Cardiovascular Function Stable: Yes Hydration Status Stable: Yes Pain Control Satisfactory: Yes Nausea and Vomiting Control Satisfactory: Yes Mental Status Recovered: Yes Vital Signs: Last Vital Signs Temp 36.5 C 08/28/20 09:40 Pulse 98 08/28/20 12:58 Resp 12 08/28/20 12:58 BP 126/57 L 08/28/20 12:58 Pulse Ox 96 08/28/20 12:58 - COMMENTS/OBSERVATIONS Free Text/Narrative:: No anesthesia problems
--- NOTE | 2020-08-28 14:48 | OR ---
SURGEON: Shahzad Solo M.D. DATE OF PROCEDURE: 08/28/2020 OPERATION PERFORMED: Placement of Bard port. PRIMARY SURGEON: Shahzad Solo M.D. ANESTHESIA: General endotracheal. ASA CLASSIFICATION: III. PREOPERATIVE DIAGNOSIS: Metastatic colorectal adenocarcinoma with the need for upcoming chemotherapy. POSTOPERATIVE DIAGNOSIS: Metastatic colorectal adenocarcinoma with the need for upcoming chemotherapy. ESTIMATED BLOOD LOSS: 20 mL. INTRAOPERATIVE FLUID REPLACEMENT: 1100 mL of crystalloid. DESCRIPTION OF PROCEDURE: The patient was taken to the operating room, placed on the operating table in the supine position. Time-out was called for appropriate identification of the patient and procedure. Following satisfactory attainment of general endotracheal anesthesia, the left chest was prepped with DuraPrep solution and sterile drapes were applied. Initial approach was to be a deltopectoral approach to cannulate the cephalic vein. Therefore, the skin overlying the left deltopectoral groove was infiltrated with 1% Xylocaine and 0.5% Marcaine solution. Skin incision was made and deepened through the subcutaneous tissue obtaining hemostasis with the use of electrocautery. Dissection was carried down to the clavipectoral fascia, but there was no appropriate or large usable cephalic vein. Therefore, this approach was abandoned and a direct approach to the subclavian vein was made. The left subclavian vein was cannulated with somewhat difficultly as we did get into the artery on at least 1 occasion. Eventually moving the needle puncture site a little medial, I was able to cannulate the left subclavian vein and withdraw blood quite well. A guidewire was placed through the needle into the subclavian vein and position confirmed fluoroscopically that we were in the superior vena cava. A small skin incision was then made and the peel-away sheath and introducer were placed over the guidewire. The guidewire and introducer were removed leaving the peel-away sheath. The heparin flushed catheter was positioned through the peel-away sheath into the superior vena cava. Position was confirmed fluoroscopically. The peel-away sheath was then removed. With care taken to avoid an air embolus, the catheter was positioned through the deltopectoral incision into a separate incision that was made on the chest wall. Again, this incision was made and hemostasis obtained with the use of electrocautery as dissection was carried down to the clavipectoral fascia. The catheter was positioned in the subcutaneous tunnel from the deltopectoral incision to the chest wall incision. Wounds were inspected for hemostasis and no bleeding was noted. Again with care taken to avoid an air embolus, the catheter was cut to appropriate length and the catheter and port were connected and secured with the locking device. The catheter was then aspirated with good return of blood and flushed easily. Again, the wounds were inspected for hemostasis and no significant bleeding was noted. The port was then secured to the underlying chest wall with interrupted 2-0 silk suture. With that accomplished, both incisions were closed in 2 layers approximating the subcutaneous tissue with 3-0 Vicryl and the skin with subcuticular 4-0 Monocryl. The small puncture site just below the left clavicle was closed with an interrupted 4-0 Monocryl. All incisions were Steri-Stripped and dressed with sterile Tegaderm pads. Sponge, needle, and instrument counts were all correct. The patient tolerated the procedure well. Following emergence from anesthesia and extubation, she was taken to recovery room in stable condition. ESTER EBCERRIL /[id number]
[2020-08-28 14:53] VITALS: BP 159/75; PULSE 84
--- NOTE | 2020-08-28 19:03 | CR ---
Indication: Port-A-Cath placement Technique: Single spot fluoroscopic view of the chest. Comparison: None. Findings: Port-A-Cath is present with tip terminating in the distal SVC. Fluoroscopy time: 94.9 seconds. Radiation dose: 13.99mGy. Impression: As above. Dictated by Shant Arce MD @ Aug 28 2020 7:00PM Signed by Dr. Shant Arce @ Aug 28 2020 7:03PM
== END 2020-08-28 14:50 | disposition home or self-care (01) ==
LOC: MW.SDS 08:23
PROVIDERS: ATTEND Surgery
DX: C19 Malignant neoplasm of rectosigmoid junction (principal); C78.7 Secondary malignant neoplasm of liver and intrahepatic bile duct; E11.9 Type 2 diabetes mellitus without complications; I10 Essential (primary) hypertension; E66.01 Morbid (severe) obesity due to excess calories; Z88.8 Allergy status to other drugs, medicaments and biological substances; Z91.040 Latex allergy status; Z79.899 Other long term (current) drug therapy; Z90.49 Acquired absence of other specified parts of digestive tract; Z68.41 Body mass index [BMI] 40.0-44.9, adult; Z88.2 Allergy status to sulfonamides
CPT/HCPCS: 36561; 71045; 76000; 82962; A9270; C1776; J0131; J0690; J1642; J2001; J2704; J3010; J3490; J7120; 00532; J1885; J2250

== ENCOUNTER 2020-10-05 08:04 | Day surgery (SDC) | payer MEDICARE, OTHER ==
[~2020-10-05 08:04] MED LIST changes: +Sodium Chloride 0.9% 10 ML SDV IV PRN; +Sodium Chloride 0.9% 10 ML Syringe FLUSH PRN; +Sodium Chloride 0.9% 2.5 ML Syringe FLUSH PRN; +ceFAZolin 2 GM in Premix Bag 1 BAG IV ONE; -ceFAZolin 2 GM in Premix Bag 1 BAG IV SCH
[2020-10-05] MEDS ORDERED: Propofol 200 MG/20 ML SDV ONE ×3 (08:51→10:23)
[2020-10-05] MEDS ORDERED: fentaNYL 100 MCG/2 ML SDV ONE ×2 (08:51→10:55)
--- NOTE | 2020-10-05 09:05 | PCM.PREANE ---
Preanesthetic Assessment - Anesthesia/Transfusion/Family Hx Anesthesia History: Prior Anesthesia Without Reaction Family History of Anesthesia Reaction: No Transfusion History: Prior Transfusion Without Reaction Intubation History: Unknown - Review of Systems General: No Symptoms Pulmonary: No Symptoms Cardiovascular: No Symptoms Gastrointestinal: No Symptoms Neurological: No Symptoms Other: Reports: None - Physical Assessment Vital Signs: Last Vital Signs Temp 36.4 C 10/05/20 08:15 Pulse 68 10/05/20 08:15 Resp 15 10/05/20 08:15 BP 164/87 H 10/05/20 08:15 Pulse Ox 98 10/05/20 08:15 Height: 5 ft 7 in Weight: 112.491 kg ASA Class: 3 Mental Status: Alert & Oriented x3 Airway Class: Mallampati = 3 Dentition: Reports: Dentures (upper), Partial (lower) Thyro-Mental Finger Breadths: 3 Mouth Opening Finger Breadths: 2 (very small mouth openiong) ROM/Head Extension: Limited/Partial Lungs: Clear to Auscultation, Normal Respiratory Effort Cardiovascular: Regular Rate, Regular Rhythm - Allergies Allergies/Adverse Reactions: Allergies Allergy/AdvReac Type Severity Reaction Status Date / Time Latex, Natural Rubber Allergy Hives Verified 08/28/20 09:35 lisinopril Allergy Swelling Verified 08/28/20 09:35 Sulfa (Sulfonamide Allergy Hives Verified 08/28/20 09:35 Antibiotics) - Blood Blood Available: No - Anesthesia Plan Pre-Op Medication Ordered: None - Acknowledgements Anesthesia Type Planned: General Anesthesia Pt an Appropriate Candidate for the Planned Anesthesia: Yes Alternatives and Risks of Anesthesia Discussed w Pt/Guardian: Yes Pt/Guardian Understands and Agrees with Anesthesia Plan: Yes PreAnesthesia Questionnaire HEENT History: Reports: Other (See Below) Other HEENT History: wears glasses, top denture, lower partial Cardiovascular History: Reports: Hypertension Respiratory History: Reports: None Gastrointestinal History: Reports: Colon Polyp, Other (See Below) Other Gastrointestinal History: colorectal cancer with mets to liver Genitourinary History: Reports: UTI, 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: Reports: Musculoskeletal History: Reports: Osteoarthritis Neurological History: Reports: None Psychiatric History: Reports: Depression Endocrine/Metabolic History: Reports: Diabetes, Type II, Obesity/BMI 30+ (BMI 38.8) Hematologic History: Reports: Anemia, Blood Transfusion(s) Immunologic History: Reports: None Oncologic (Cancer) History: Reports: Colon, Liver Other Oncologic History: colorectal cancer with mets to liver Dermatologic History: Reports: None - Infectious Disease History Infectious Disease History: Reports: Chicken Pox, Measles, Mumps - Past Surgical History Head Surgeries/Procedures: Reports: None HEENT Surgical History: Reports: Tonsillectomy Cardiovascular Surgical History: Reports: None Respiratory Surgical History: Reports: None GI Surgical History: Reports: Colon (rt. hemicolectomy for cancer 07/18/20), Colonoscopy, EGD, Other (See Below) Other GI Surgeries/Procedures: laparoscopic hemicolectomy in [place] Jul 17 2020 Female Surgical History: Reports: Section (x2), Hysterectomy Endocrine Surgical History: Reports: None Neurological Surgical History: Reports: None Musculoskeletal Surgical History: Reports: None Oncologic Surgical History: Reports: Other (See Below) Other Oncologic Surgeries/Procedures: laparoscopic rt hemicolectomy on Jul 17, 2020 Dermatological Surgical History: Reports: None - SUBSTANCE USE Tobacco Use Status *Q: Never Tobacco User - HOME MEDS Home Medications: Home Meds Aspirin [[place] Aspirin] 81 mg PO DAILY 05/28/14 [History] Losartan [Cozaar] 25 mg PO BEDTIME 05/28/14 [History] metFORMIN [Glucophage] 1,000 mg PO BID 05/28/14 [History] Latanoprost 1 drop EYEBOTH BEDTIME 04/24/20 [History] Magnesium Oxide [Magnesium] 400 mg PO DAILY 04/24/20 [History] Bismuth Subsalicylate [Pepto-Bismol] 15 ml PO ASDIRECTED PRN 08/22/20 [History] Potassium Gluconate [Potassium] 99 mg PO DAILY 08/22/20 [History] - CURRENT (IN HOUSE) MEDS Current Meds: Current Medications Lactated Ringer's (Ringers, Lactated) 1,000 mls @ 125 mls/hr IV ASDIRECTED MARK Last Admin: 10/05/20 08:40 Dose: 125 mls/hr Documented by: Sodium Chloride (Saline Flush) 2.5 ml FLUSH ASDIRECTED PRN PRN Reason: Keep Vein Open Sodium Chloride (Normal Saline) 10 ml IV ASDIRECTED PRN PRN Reason: IV Use Sodium Chloride (Saline Flush) 10 ml FLUSH ASDIRECTED PRN PRN Reason: Keep Vein Open Discontinued Medications Fentanyl (Sublimaze) Confirm Administered Dose 100 mcg .ROUTE .STK-MED ONE Stop: 10/05/20 08:52 Cefazolin Sodium/Dextrose 2 gm (/ Premix) 50 mls @ 100 mls/hr IV ONETIME ONE Stop: 10/02/20 15:28 Propofol (Diprivan 20 Ml) Confirm Administered Dose 400 mg .ROUTE .STK-MED ONE Stop: 10/05/20 08:52
[2020-10-05] MEDS ORDERED: Bupivacaine 0.5% 10 ML SDV ONE ×2 (09:38→10:20)
[2020-10-05] MEDS ORDERED: Heparin Sodium 100 Units/ML 3 ML Syringe ONE (09:39)
[2020-10-05] MEDS ORDERED: Lidocaine 1% 20 ML MDV ONE (09:39)
[2020-10-05] MEDS ORDERED: Iopamidol 408 MG/ML 20 ML SDV ONE (09:39)
[2020-10-05] MEDS ORDERED: Scopolamine 1.5 MG Transdermal Patch ONE (09:43)
[2020-10-05] MEDS ORDERED: Octyl 2-Cyanoacrylate 1 Tube ONE ×2 (10:07→10:10)
[2020-10-05] MEDS ORDERED: Ondansetron 4 MG/2 ML SDV ONE (11:04)
--- NOTE | 2020-10-05 11:42 | PCM.OPNOTE ---
- General Post-Op/Procedure Note Date of Surgery/Procedure: 10/05/20 Operative Procedure(s): Left subclavian port a cath removal, right internal jugular port a cath placement Findings: Port on left side of chest surrounded in viscous fluid and old blood, right internal jugular port a cath placement without difficulty. Pre Op Diagnosis: Colon cancer Post-Op Diagnosis: same Anesthesia Technique: General LMA Primary Surgeon: Yvette Suarez Fluid Replacement, Intraop: 900 EBL in mLs: 10 Condition: Good
--- NOTE | 2020-10-05 12:04 | PCM.POSTAN ---
POST ANESTHESIA ASSESSMENT - MENTAL STATUS Mental Status: Alert, Oriented - VITAL SIGNS Vital Signs: Last Vital Signs Temp 36.3 C 10/05/20 11:32 Pulse 80 10/05/20 11:52 Resp 11 L 10/05/20 11:52 BP 150/81 H 10/05/20 11:52 Pulse Ox 98 10/05/20 11:52 - RESPIRATORY Respiratory Status: Respiratory Rate WNL, Airway Patent, O2 Saturation Stable - CARDIOVASCULAR CV Status: Pulse Rate WNL, Blood Pressure Stable - GASTROINTESTINAL GI Status: No Symptoms - PAIN Pain Score: 6 - POST OP HYDRATION Hydration Status: Adequate & Stable - OBSERVATIONS Free Text/Narrative:: No anesthesia problems
[2020-10-05 12:44] VITALS: BP 161/77; PULSE 63
--- NOTE | 2020-10-05 13:20 | PCM48HPAN ---
Post Anesthesia Note - EVALUATION WITHIN 48HRS OF ANESTHETIC Vital Signs in Normal Range: Yes Patient Participated in Evaluation: Yes Respiratory Function Stable: Yes Airway Patent: Yes Cardiovascular Function Stable: Yes Hydration Status Stable: Yes Pain Control Satisfactory: Yes Nausea and Vomiting Control Satisfactory: Yes Mental Status Recovered: Yes Vital Signs: Last Vital Signs Temp 36.2 C 10/05/20 12:02 Pulse 63 10/05/20 12:32 Resp 16 10/05/20 12:32 BP 161/77 H 10/05/20 12:32 Pulse Ox 98 10/05/20 12:32 - COMMENTS/OBSERVATIONS Free Text/Narrative:: No anesthesia problems
--- NOTE | 2020-10-05 22:01 | CR ---
INDICATION: Right-sided port placement COMPARISON: Chest radiograph from 08/28/2020 FINDINGS: Fluoroscopic guidance is provided for port placement. A total of 26.4 seconds of fluoroscopic time was used and 2 radiographs are submitted. The initial radiograph is of the superior perihilar right chest, showing the inferior end of a port to be positioned in the superior vena cava at the cavoatrial junction. The final radiograph is of the right lower neck, showing the port catheter entering the right internal jugular vein. The previously seen left subclavian infusion port catheter is no longer present. IMPRESSION: Satisfactory positioning of a catheter for a right internal jugular infusion port, with tip in the area of the cavoatrial junction. Dictated by Juan Eastman MD @ Oct 05 2020 9:55PM Signed by Dr. Juan Eastman @ Oct 05 2020 9:59PM
--- NOTE | 2020-10-06 12:25 | OR ---
SURGEON: JOSEPH GASCA MD DATE OF PROCEDURE: 10/05/2020 PREOPERATIVE DIAGNOSES: Colon cancer, Port-A-Cath issues. POSTOPERATIVE DIAGNOSES: Colon cancer, Port-A-Cath issues. PROCEDURE PERFORMED: 1. Removal of left subclavian Port-A-Cath. 2. Insertion of right internal jugular Port-A-Cath. ANESTHESIA: General LMA. FLUIDS: 900 mL crystalloid. ESTIMATED BLOOD LOSS: 10 mL. FINDINGS: Left subclavian Port-A-Cath was intact, but the Port-A-Cath site on the chest wall was surrounded by viscous fluid and old hematoma. No complications with insertion of right internal jugular Port-A-Cath. COMPLICATIONS: None. INDICATIONS: The patient is a 75-year-old female who was recently diagnosed with colon cancer. She underwent surgery and had a Port-A-Cath placed for chemotherapy treatment. Due to the placement of the Port-A-Cath lower on the patient's chest wall, there have been access issues [facility]. She was sent to my office to consider placement of a Port-A-Cath in the right internal jugular vein so that it could be placed more superficially and higher up on the chest wall. The patient and I discussed the procedure to remove the port and place a new one. I explained the expected perioperative course, and the risks. She verbalized understanding and wishes to proceed. PROCEDURE IN DETAIL: The patient was brought into the OR and placed on the OR table in supine position. A time-out was completed verifying the patient's name, age, date of , allergies, and procedure to be performed. An ultrasound was used to verify vascular anatomy on the right side of the neck. I visualized the right internal jugular vein and the right carotid artery. A roll was placed under the patient's shoulders and both arms were tucked to the patient's side. General LMA anesthesia was induced. The decision was made to remove the left-sided subclavian Port-A-Cath first. The left side of the chest and neck were prepped and draped in usual standard fashion. I anesthetized the area overlying the anterior chest wall incision with 0.5% Marcaine plain. A 15 blade was used to make an incision along the old scar. Electrocautery was used to dissect down to the subcutaneous fat layer. I continued my dissection down to the level of the port. Once I reached the port, I noticed there was a cavity around it. This contained a viscous thick fluid mixed with degraded blood. There was no evidence of purulence, but to be safe, I sent this fluid for wound culture and Gram stain. The port was secured to the chest wall. There was a significant amount of subcutaneous fat overlying this. Given the fluid collection around the port and how deep it was, I could see where there were issues with accessing the port at the [facility]. Using a Suture scissors, I removed the silk sutures, which had secured the port to the chest wall. Gentle pressure was applied and I removed the port and its tubing from the site. Pressure was held in the wound for 1 minute. I then removed my lap and inspected the wound site. The wound was hemostatic. I irrigated the wound with normal saline until it ran clear. I then closed the cavity with interrupted 3-0 Vicryl in layers in the subcutaneous fat. I then closed the skin with a running 4-0 Monocryl stitch. Again, I did not feel that the wound looked infected, so I felt safe closing the wound completely. Dermabond and sterile dressings were applied. The drapes were all taken down and we re-prepped and draped the right side of the neck and chest wall. I re-scrubbed into the case. A separate table and instruments were used for this portion of the case. Using a sterile ultrasound, I reidentified the vascular anatomy at the right side of the neck. The patient was placed into Trendelenburg position. I anesthetized the area overlying my insertion site on the neck and down along the chest wall and tubing tract with 0.5% Marcaine plain as well as 1% lidocaine plain. Using ultrasound guidance, I placed a needle into the right internal jugular vein. A good return of venous blood was noted. A guidewire was placed down into the vein. No resistance was noted. The guidewire was then secured to the drapes, and a C-arm brought in. The C-arm verified placement of the guidewire into the superior vena cava. I then turned my attention to the right anterior chest wall. A 15 blade was used to make a 3 cm incision 2 fingerbreadths below the lateral right clavicle. Cautery was used to dissect down to the level of subcutaneous fat. I elevated the skin and created a superficial subcutaneous pocket for the port device to be placed in. Once this was completed, I then tunneled my catheter tubing from my anterior chest wall site up to the insertion site of my guidewire on the neck. I then brought C-arm back in and placed a vascular sheath and dilator over my guidewire. I dilated up my vascular tract under fluoroscopic guidance. The dilator was removed and the catheter tubing was placed down the sheath into the superior vena cava. The sheath was then removed. Under fluoroscopic guidance, I pulled the catheter tubing back to where the tip was at the atriocaval junction. X-rays of this were taken and saved. I then accessed the catheter tubing. Good return of venous blood was noted. The tubing was then flushed with injectable saline. The catheter tubing was trimmed to 25 cm and the Port-A- Cath device was placed over the top. The port was then placed into the chest wall. Again, I accessed the Port-A-Cath device using a Resendiz needle and a good return of venous blood was noted. I then locked the device and the tubing with 4 mL of heparinized saline. The device was then secured to the surrounding subcutaneous fat with interrupted 2-0 Prolene sutures. I then closed the tissue around the device using interrupted 3-0 Vicryl sutures. The skin was closed with a running 4-0 Monocryl stitch. My insertion site on the neck was closed with interrupted 4-0 Monocryl suture. Dermabond and sterile dressings were applied. The patient tolerated the procedure well. She was taken to the PACU. A chest x-ray was performed, which showed no immediate complications. All counts were complete and correct at the end of the case. ARMOND BECERRIL /[id number]
--- NOTE | 2020-10-09 11:38 | CR ---
EXAM DATE: 10/05/20 PATIENT'S AGE: 75 Patient: SARITHA HSU Facility: [facility] Site . Site : [id number] Study: [id number]-9/21/2021 12:31:54 PM Ordering Physician: CAMPOS Final Report: INDICATION: Port-A-Cath placement COMPARISON: August 28, 2020 TECHNIQUE: Single view AP portable chest radiograph FINDINGS: TUBES AND LINES: Right IJ Port-A-Cath in the SVC. The left-sided Port-A-Cath noted August 28, 2020 has been removed HEART AND MEDIASTINUM: The heart size is normal. The mediastinal contour appears normal for patient age. LUNGS AND PLEURAL SPACES: The lungs appear normal.The pleural spaces are unremarkable. OSSEOUS STRUCTURES: Age-appropriate appearance. No acute focal finding. IMPRESSION: Right-sided Port-A-Cath properly located ending in the SVC. Normal appearing lungs and pleural spaces. Dictated by Michael Franks MD @ Oct 05 2020 12:35PM Signed by: Michael Franks MD @10/05/2020 12:36:30 PM (Electronic Signature) Report Signed by Proxy. [facility] CENTERMark
== END 2020-10-05 13:00 | disposition home or self-care (01) ==
LOC: MW.SDS 08:04
PROVIDERS: ATTEND Surgery
DX: T82.898A Other specified complication of vascular prosthetic devices, implants and grafts, initial encounter (principal); C18.0 Malignant neoplasm of cecum; E11.9 Type 2 diabetes mellitus without complications; I10 Essential (primary) hypertension; E66.01 Morbid (severe) obesity due to excess calories; Z88.8 Allergy status to other drugs, medicaments and biological substances; Z88.2 Allergy status to sulfonamides; Z91.040 Latex allergy status; Z79.82 Long term (current) use of aspirin; Z79.899 Other long term (current) drug therapy; Z98.890 Other specified postprocedural states; Z68.38 Body mass index [BMI] 38.0-38.9, adult
CPT/HCPCS: 36561; 36590; 71045; 76000; 87070; 87205; 88300; A9270; J0131; J0690; J1642; J2001; J2405; J2704; J3010; J3490; J7120; Q9966

== ENCOUNTER 2020-10-24 09:40 | Observation (INO) | payer MEDICARE, OTHER ==
--- NOTE | 2020-10-24 10:55 | CR ---
Indication: Shortness of breath Comparison: None available. Technique: Single AP view chest Findings: There is hyperinflation and chronic interstitial change. There is questionable mild pleural thickening in the right lung base with basilar atelectasis versus scar. There is a right-sided Port-A-Cath. The cardiac silhouette is mildly prominent. The bony thorax is grossly intact. Impression: Hyperinflation and chronic interstitial changes with right basilar pleural thickening with associated atelectasis and/or infiltrates. Dictated by Jorge Garcia MD @ Oct 24 2020 10:54AM Signed by Dr. Jorge Garcia @ Oct 24 2020 10:54AM
[2020-10-24 10:57] LABS: BLOOD UREA NITROGEN,BUN 9 mg/dL (7.0-18.0); CARBON DIOXIDE,CO2 24.9 mmol/L (21.0-32.0); CHLORIDE,CL 107 mmol/L (98-107); GLUCOSE RANDOM 197 mg/dL (74-106); POTASSIUM,K 4.3 mmol/L (3.5-5.1); SODIUM,NA 140 mmol/L (136-145)
[2020-10-24] MEDS ORDERED: Iopamidol 755 MG/ML 500 ML Multipack Bottle IVPUSH STA (13:50)
--- NOTE | 2020-10-24 14:19 | CT ---
Indication: Shortness of breath Technique: Volumetric multidetector CT images of the chest were obtained after the administration of IV contrast. 100 mL Isovue 370 low osmolar intravenous contrast Comparison: None available. Findings: Right sided Claudia-Cath in satisfactory condition. The thoracic inlet and thyroid gland are unremarkable. The thoracic aorta is nonaneurysmal. There is no central filling defect to suggest pulmonary embolism. There are enlarged hilar and mediastinal lymph nodes. There is moderate central bronchial thickening with mucoid impaction of the lower lobe bronchi. There is a trace right basilar effusion with intralobular septal thickening. There is basilar atelectasis and consolidation within the right greater than left lung bases. There are multiple pulmonary nodules seen throughout the bilateral hemithoraces the largest in the anterior left upper lobe measuring 1.3 x 0.9 centimeters on series 41, image 40. The largest within the right upper lobe is seen on series 401, image 52 measuring 9.1 x 7.4 millimeters. The largest nodule within the left lower lobe can be seen in the lingula on series 401, image 149 measuring up to 1.2 centimeters. The partially visualized upper abdomen demonstrates a mildly heterogeneous liver echotexture with questionable low-density lesion within the right liver lobe seen on series 401 image to wait. The partially visualized gallbladder demonstrates calcified gallstones. The remaining upper abdomen is grossly unremarkable. The thoracic vertebral body heights are grossly maintained with diffuse flowing anterior osteophytosis. There is no significant spondylolisthesis or displaced fracture. Impression: Demonstration of a trace right basilar effusion with adjacent atelectasis versus infiltrates with interlobular septal thickening which may represent a component of pulmonary edema. No evidence of pulmonary embolus. Moderately enlarged hilar and mediastinal lymph nodes with presence of multiple pulmonary nodules seen throughout the bilateral hemithoraces. Underlying neoplastic or metastatic changes are not excluded and follow-up with PET-CT and/or correlation with history of primary malignancy is recommended. Please note that all CT scans at this facility use dose modulation, iterative reconstruction, and/or weight-based dosing when appropriate to reduce radiation dose to as low as reasonably achievable. Dictated by Jorge Garcia MD @ Oct 24 2020 1:54PM Signed by Dr. Jorge Garcia @ Oct 24 2020 2:17PM
[2020-10-24] MEDS ORDERED: Cephalexin 500 MG Cap PO ONE (14:38)
[2020-10-24] MEDS ORDERED: Furosemide 20 MG/2 ML VIAL IVPUSH ONE (14:52)
--- NOTE | 2020-10-24 15:38 | EDM.PDOC ---
ED HPI GENERAL MEDICAL PROBLEM - General Chief Complaint: Respiratory Problem Stated Complaint: ELEVATED HEART RATE AND BLOOD PRESSURE Time Seen by Provider: 10/24/20 10:02 - History of Present Illness INITIAL COMMENTS - FREE TEXT/NARRATIVE: CHIEF COMPLAINT(S): Shortness of breath HISTORY OF PRESENT ILLNESS: This is a 75-year-old woman with a past medical history of hypertension, diabetes mellitus, and metastatic colorectal cancer on chemotherapy who comes to the emergency department with a chief complaint of shortness of breath. She states that for the last 3 days she has been experiencing shortness of breath when she walks. She denies any lower extremity swelling, chest pain, diaphoresis, nausea or vomiting. She denies any recent travel or surgery. She denies any history of DVT or PE. She states that she does not have orthopnea but she does take Lasix at home for swelling in the past. She states that she has never had dyspnea on exertion so this is new. She was on her way to her chemotherapy regimen this morning when she started to feel short of breath so she came to the emergency department. REVIEW OF SYSTEMS: Constitutional: Denies fever, chills. Eyes: Denies eye pain Ears, Nose, Mouth, & Throat: Denies earache Cardiovascular: Denies chest pain, lower extremity swelling Respiratory: Positive for dyspnea on exertion. Denies orthopnea Gastrointestinal: Denies Nausea, vomiting, diarrhea, hematochezia. Genitourinary: Denies hematuria Skin:Denies a rash Neurological: Denies blurred vision Psychiatric: Denies depression PAST MEDICAL HISTORY: As per history of present illness and as reviewed below otherwise noncontributory. SURGICAL HISTORY: As per history of present illness and as reviewed below otherwise noncontributory. SOCIAL HISTORY: As per history of present illness and as reviewed below otherwise noncontributory. FAMILY HISTORY: As per history of present illness and as reviewed below otherwise noncontributory. EXAMINATION OF ORGAN SYSTEMS/BODY AREAS: Constitutional: Blood pressure was 173/87, heart rate 75, respiratory rate 16 with an oxygen saturation 98% on room air. Temperature 36.0 General: Obese woman who does not appear to be in acute distress. Psychiatric: Appropriate mood and affect. Eyes: No scleral icterus or conjunctival erythema ENMT: Moist mucous membranes. No pharyngeal erythema Cardiovascular: Regular, rate, and rhythm. No gallops, murmurs, or rubs. Bilateral upper extremity pulses symmetric and intact. No peripheral edema. No JVD. Respiratory: Lungs clear to auscultation bilaterally. No wheezes, rales, or rhonchi. Speaking in full sentences. Gastrointestinal: Soft, non-tender, non-distended. Normoactive bowel sounds Genitourinary: No suprapubic tenderness Musculoskeletal: Normal range of motion. Skin: No lesions or abrasions. Neurological: Alert, GCS 15 MEDICAL DECISION MAKING AND COURSE IN THE ED WITH INTERPRETATION/REVIEW OF DIAGNOSTIC STUDIES: This is a 75-year-old woman with a past medical history of diabetes mellitus, hypertension, and colorectal metastatic carcinoma on chemotherapy who comes to the emergency department with dyspnea on exertion who is saturating well in room air and is speaking in full sentences. At this time given the patient is currently undergoing treatment for cancer differential does include pulmonary embolism, pneumonia, pleural effusion, atypical ACS. Will obtain labs including CBC, CMP, troponin, BNP and D-dimer. Will obtain a chest x-ray and EKG. Twelve-lead EKG interpreted by myself. Normal sinus rhythm at a rate of 71 beats per minute. Normal axis. WI interval is 160 ms. QRS duration is [address] segments are normal without elevations or depressions. No Q waves present. Hypertrophy not noted. No changes demonstrated from prior EKG dated October 31, 2019. Interpretation: Normal sinus rhythm Laboratory: CBC reveals a normocytic anemia with a hemoglobin of 10.1 and hematocrit of 32.8 which appears to be the patient's baseline. Coags are within normal limits. CMP reveals hyperglycemia at 197, elevated alkaline phosphatase at 130. Hypoalbuminemia at 3.0. BNP is elevated at 477. The radiological images were viewed by myself along with reading the report from the radiologist. Chest x-ray reveals hyperinflation and chronic interstitial changes with right basilar pleural thickening with associated atelectasis and/or infiltrates. After x-ray lab contacts and stated that the D-dimer assay is down. Therefore we will obtain a CT angiogram to evaluate for pulmonary embolism. I did discuss this with the patient and she was amenable to this plan. At this time she also stated that she may have a urinary tract infection so therefore we will send a urinalysis. She does have a long history of chronic UTI. In the interim I did contact [facility] and spoke with Tray Gutierrez NP who works with Dr. Navarro her oncologist. At this time she discussed with me that we should obtain a echocardiogram to evaluate for heart failure as 5-FU can cause cardiomyopathy and some of her other medications may cause pneumonitis which can be evaluated on CT PE. She stated that they could have her follow-up with oncology in 1 week. She stated that if it is pneumonitis she recommends 1 mg/kg with a dose of 120 mg/day until her follow-up appointment if this is found to be pneumonitis. The radiological images were viewed by myself along with reading the report from the radiologist. CT angiogram reveals no evidence of pulmonary embolism. There is demonstration of a trace right basilar effusion with adjacent atelectasis versus infiltrates versus interlobular septal thickening may represent a component of pulmonary edema. There is moderate enlarged hilar and mediastinal lymph nodes with multiple pulmonary nodules through the bilateral hemothoraces cannot rule out metastatic changes. After images I did discuss the results with the patient. I did discuss her at this time that given the elevated BNP the signs of pulmonary edema on CT that I would like to admit her for new onset heart failure. She was amenable to this plan. I contacted Dr. Pearson and he accepted the patient for admission. Urinalysis was a clean catch and was negative for leukocyte esterase, positive for nitrites, and negative for blood. Interpretation: Positive After urinalysis I did review the patient's prior microbiology cultures and it appears that the patient's prior urinary tract infections are susceptible to Keflex. Therefore I will provide the patient with Keflex by mouth. DISPOSITION: Patient was admitted to telemetry in stable condition. At the time of admission the patient's echocardiogram was pending and this was discussed with Dr. Pearson CONDITION: Fair PROCEDURES: None FINAL IMPRESSION(S)/DIAGNOSES: 1. Acute dyspnea likely secondary to new onset CHF 2. Acute on chronic urinary tract infection Ady Aguilera M.D. - Related Data Allergies Allergy/AdvReac Type Severity Reaction Status Date / Time Latex, Natural Rubber Allergy Hives Verified 10/24/20 10:17 lisinopril Allergy Swelling Verified 10/24/20 10:17 Sulfa (Sulfonamide Allergy Hives Verified 10/24/20 10:17 Antibiotics) Home Meds: Home Meds Aspirin [[place] Aspirin] 81 mg PO DAILY 05/28/14 [History] Losartan [Cozaar] 25 mg PO BEDTIME 05/28/14 [History] metFORMIN [Glucophage] 1,000 mg PO BID 05/28/14 [History] Latanoprost 1 drop EYEBOTH BEDTIME 04/24/20 [History] Bismuth Subsalicylate [Pepto-Bismol] 15 ml PO ASDIRECTED PRN 08/22/20 [History] Past Medical History HEENT History: Reports: Other (See Below) Other HEENT History: wears glasses, top denture, lower partial Cardiovascular History: Reports: Hypertension Respiratory History: Reports: None Gastrointestinal History: Reports: Colon Polyp, Other (See Below) Other Gastrointestinal History: colorectal cancer with mets to liver Genitourinary History: Reports: UTI, Recurrent [employer] History: Reports: Musculoskeletal History: Reports: Osteoarthritis Neurological History: Reports: None Psychiatric History: Reports: Depression Endocrine/Metabolic History: Reports: None, Diabetes, Type II, Obesity/BMI 30+ Hematologic History: Reports: Anemia, Blood Transfusion(s) Immunologic History: Reports: None Oncologic (Cancer) History: Reports: Colon, Liver Other Oncologic History: colorectal cancer with mets to liver Dermatologic History: Reports: None - Infectious Disease History Infectious Disease History: Reports: Chicken Pox, Measles, Mumps - Past Surgical History Head Surgeries/Procedures: Reports: None HEENT Surgical History: Reports: Tonsillectomy Cardiovascular Surgical History: Reports: None Respiratory Surgical History: Reports: None GI Surgical History: Reports: Colon, Colonoscopy, EGD, Other (See Below) Other GI Surgeries/Procedures: laparoscopic hemicolectomy in [place] Jul 17 2020 Female Surgical History: Reports: Section, Hysterectomy Endocrine Surgical History: Reports: None Neurological Surgical History: Reports: None Musculoskeletal Surgical History: Reports: None Oncologic Surgical History: Reports: Other (See Below) Other Oncologic Surgeries/Procedures: laparoscopic rt hemicolectomy on Jul 17, 2020 Dermatological Surgical History: Reports: None Social & Family History - Family History Family Medical History: No Pertinent Family History - Tobacco Use Tobacco Use Status *Q: Never Tobacco User - Caffeine Use Caffeine Use: Reports: Soda Caffeine Use Comment: "once in a while" - Recreational Drug Use Recreational Drug Use: No ED ROS GENERAL - Review of Systems Review Of Systems: See Below ED EXAM, GENERAL - Physical Exam Exam: See Below Course - Vital Signs Last Recorded V/S: Last Vital Signs Temp 36.0 C L 10/24/20 10:17 Pulse 88 10/24/20 12:35 Resp 17 10/24/20 12:35 BP 176/99 H 10/24/20 12:35 Pulse Ox 98 10/24/20 12:35 - Orders/Labs/Meds Orders: Active Orders 24 hr Category Date Time Status Admission Status [Patient Status] [ADT] Stat ADT 10/24/20 14:53 Active EKG Documentation Completion [RC] STAT Care 10/24/20 10:14 Active Echo Comp wo Cont [US] Stat Exams 10/24/20 13:54 Ordered CULTURE URINE [RM] Stat Lab 10/24/20 11:23 Received Labs: Laboratory Tests 10/24/20 10/24/20 10/24/20 Range/Units 10:25 10:25 10:25 WBC 5.69 (4.0-11.0) K/uL RBC 3.79 L (4.30-5.90) M/uL Hgb 10.1 L (12.0-16.0) g/dL Hct 32.8 L (36.0-46.0) % MCV 86.5 (80.0-98.0) fL MCH 26.6 L (27.0-32.0) pg MCHC 30.8 L (31.0-37.0) g/dL RDW Std Deviation 68.8 H (28.0-62.0) fl RDW Coeff of Bret 22 H (11.0-15.0) % Plt Count 167 (150-400) K/uL MPV 9.80 (7.40-12.00) fL Neut % (Auto) 48.3 (48.0-80.0) % Lymph % (Auto) 38.7 (16.0-40.0) % [place] % (Auto) 8.6 (0.0-15.0) % Eos % (Auto) 4.0 (0.0-7.0) % Baso % (Auto) 0.4 (0.0-1.5) % Neut # (Auto) 2.8 (1.4-5.7) K/uL Lymph # (Auto) 2.2 (0.6-2.4) K/uL [place] # (Auto) 0.5 (0.0-0.8) K/uL Eos # (Auto) 0.2 (0.0-0.7) K/uL Baso # (Auto) 0.0 (0.0-0.1) K/uL Nucleated RBC % 0.0 /100WBC Nucleated RBCs # 0 K/uL INR 1.01 D-Dimer, Quantitative 4.68 H (0.0-0.50) mg/L FEU Sodium 140 (136-145) mmol/L Potassium 4.3 (3.5-5.1) mmol/L Chloride 107 (98-107) mmol/L Carbon Dioxide 24.9 (21.0-32.0) mmol/L BUN 9 (7.0-18.0) mg/dL Creatinine 0.9 (0.6-1.0) mg/dL Est Cr Clr Drug Dosing 49.78 mL/min Estimated GFR (MDRD) > 60.0 ml/min Glucose 197 H (74-106) mg/dL Calcium 8.6 (8.5-10.1) mg/dL Total Bilirubin 0.4 (0.2-1.0) mg/dL AST 30 (15-37) IU/L ALT 31 (14-63) IU/L Alkaline Phosphatase 130 H (46-116) U/L Troponin I < 0.050 (0.000-0.056) ng/mL B-Natriuretic Peptide (<100) PG/ML Total Protein 7.3 (6.4-8.2) g/dL Albumin 3.0 L (3.4-5.0) g/dL Globulin 4.3 H (2.6-4.0) g/dL Albumin/Globulin Ratio 0.7 L (0.9-1.6) Urine Color Urine Appearance Urine pH (5.0-8.0) Ur Specific [place] (1.001-1.035) Urine Protein (NEGATIVE) mg/dL Urine Glucose (UA) (NEGATIVE) mg/dL Urine Ketones (NEGATIVE) mg/dL Urine Occult Blood (NEGATIVE) Urine Nitrite (NEGATIVE) Urine Bilirubin (NEGATIVE) Urine Urobilinogen (<2.0) EU/dL Ur Leukocyte Esterase (NEGATIVE) Urine RBC (0-2/HPF) Urine WBC (0-5/HPF) Ur Epithelial Cells (NONE-FEW) Urine Bacteria (NEGATIVE) SARS-CoV-2 RNA (CHRISTINE) (NEGATIVE) 10/24/20 10/24/20 10/24/20 Range/Units 10:25 11:23 14:38 WBC (4.0-11.0) K/uL RBC (4.30-5.90) M/uL Hgb (12.0-16.0) g/dL Hct (36.0-46.0) % MCV (80.0-98.0) fL MCH (27.0-32.0) pg MCHC (31.0-37.0) g/dL RDW Std Deviation (28.0-62.0) fl RDW Coeff of Bret (11.0-15.0) % Plt Count (150-400) K/uL MPV (7.40-12.00) fL Neut % (Auto) (48.0-80.0) % Lymph % (Auto) (16.0-40.0) % [place] % (Auto) (0.0-15.0) % Eos % (Auto) (0.0-7.0) % Baso % (Auto) (0.0-1.5) % Neut # (Auto) (1.4-5.7) K/uL Lymph # (Auto) (0.6-2.4) K/uL [place] # (Auto) (0.0-0.8) K/uL Eos # (Auto) (0.0-0.7) K/uL Baso # (Auto) (0.0-0.1) K/uL Nucleated RBC % /100WBC Nucleated RBCs # K/uL INR D-Dimer, Quantitative (0.0-0.50) mg/L FEU Sodium (136-145) mmol/L Potassium (3.5-5.1) mmol/L Chloride (98-107) mmol/L Carbon Dioxide (21.0-32.0) mmol/L BUN (7.0-18.0) mg/dL Creatinine (0.6-1.0) mg/dL Est Cr Clr Drug Dosing mL/min Estimated GFR (MDRD) ml/min Glucose (74-106) mg/dL Calcium (8.5-10.1) mg/dL Total Bilirubin (0.2-1.0) mg/dL AST (15-37) IU/L ALT (14-63) IU/L Alkaline Phosphatase (46-116) U/L Troponin I (0.000-0.056) ng/mL B-Natriuretic Peptide 477 H (<100) PG/ML Total Protein (6.4-8.2) g/dL Albumin (3.4-5.0) g/dL Globulin (2.6-4.0) g/dL Albumin/Globulin Ratio (0.9-1.6) Urine Color YELLOW Urine Appearance CLEAR Urine pH 6.0 (5.0-8.0) Ur Specific [place] 1.020 (1.001-1.035) Urine Protein NEGATIVE (NEGATIVE) mg/dL Urine Glucose (UA) NEGATIVE (NEGATIVE) mg/dL Urine Ketones NEGATIVE (NEGATIVE) mg/dL Urine Occult Blood NEGATIVE (NEGATIVE) Urine Nitrite POSITIVE H (NEGATIVE) Urine Bilirubin NEGATIVE (NEGATIVE) Urine Urobilinogen 0.2 (<2.0) EU/dL Ur Leukocyte Esterase NEGATIVE (NEGATIVE) Urine RBC 0-2 (0-2/HPF) Urine WBC 0-3 (0-5/HPF) Ur Epithelial Cells OCCASIONAL (NONE-FEW) Urine Bacteria 3+ H (NEGATIVE) SARS-CoV-2 RNA (CHRISTINE) NEGATIVE (NEGATIVE) Meds: Medications Discontinued Medications Generic Name Dose Route Start Last Admin Trade Name Freq PRN Reason Stop Dose Admin Cephalexin 500 mg 10/24/20 14:38 10/24/20 14:43 Keflex PO 10/24/20 14:39 500 mg ONETIME ONE Administration Furosemide 20 mg 10/24/20 14:52 Lasix IVPUSH 10/24/20 14:53 ONETIME ONE Iopamidol 100 ml 10/24/20 13:50 10/24/20 14:44 Isovue Multipack-370 (76%) IVPUSH 10/24/20 13:51 100 ml ONETIME STA Administration Departure - Departure Time of Disposition: 14:53 Disposition: Refer to Observation Condition: Fair Clinical Impression: UTI, Urinary tract infectious disease Congestive heart failure Qualifiers: Heart failure type: unspecified Heart failure chronicity: acute Qualified Code(s): I50.9 - Heart failure, unspecified - Discharge Information Referrals: Blake Munoz MD [Primary Care Provider] - Sepsis Event Note (ED) - Evaluation Sepsis Screening Result: No Definite Risk - Focused Exam Vital Signs: Vital Signs Temp Pulse Resp BP Pulse Ox 10/24/20 12:35 88 17 176/99 H 98 10/24/20 11:29 89 18 189/97 H 95 10/24/20 10:57 72 18 169/90 H 97 10/24/20 10:17 36.0 C L 75 16 173/87 H 98 - My Orders Last 24 Hours: My Active Orders 10/24/20 10:14 EKG Documentation Completion [RC] STAT 10/24/20 11:23 CULTURE URINE [RM] Stat 10/24/20 13:54 Echo Comp wo Cont [US] Stat 10/24/20 14:53 Admission Status [Patient Status] [ADT] Stat - Assessment/Plan Last 24 Hours: My Active Orders 10/24/20 10:14 EKG Documentation Completion [RC] STAT 10/24/20 11:23 CULTURE URINE [RM] Stat 10/24/20 13:54 Echo Comp wo Cont [US] Stat 10/24/20 14:53 Admission Status [Patient Status] [ADT] Stat
--- NOTE | 2020-10-24 15:48 | PCM.HP.2 ---
H&P History of Present Illness - General Date of Service: 10/24/20 Admit Problem/Dx: Admission Diagnosis/Problem Admission Diagnosis/Problem Congestive heart failure Source of Information: Patient, Old Records (Oncology notes reviewed) History Limitations: Reports: No Limitations - History of Present Illness Initial Comments - Free Text/Narative: This 75-year-old female with past medical history of diabetes type 2, hypertension, metastatic colorectal cancer status post right hemicolectomy in July 2020 presented to the ER today with concerns of shortness of breath. She reports the last couple days she has been having increasing shortness of breath especially with exertion. She reports this morning she woke up feeling increasing shortness of breath which did eventually settle down but with exertion this worsened. She reports she slowly got better and went to her chemotherapy appointment but was noted to have significantly elevated blood pressure and continued to feel shortness of breath with exertion. The oncology nurse recommended her to be evaluated in the ER. She reports history of being on Lasix in the past but is unsure why. She denies any chest pain or palpitations. She denies any cough fevers or chills. She reports that she is on cycle 4/12 of chemotherapy for her colorectal cancer. She recently had her port repositioned and has been doing well since. She has followed up recently with Dr. Suarez regarding this and site looks intact and new port is working well. She reports at this appointment Dr. Suarez she was noted to be 252 pounds but today in oncology she was noted to be 261 pounds which is a large jump. Denies any history of heart failure or any CAD or ME in the past. Denies any family history of CAD or family history of heart failure. She denies any history of PE or DVT. She denies any pain to lower extremities. Denies any diarrhea constipation black or bloody bowel movements. Reports she is doing overall well and was hoping to continue with chemotherapy. She denies any smoking. No recreational drug use or alcohol use. In the ER white count stable at 5.69. Hemoglobin 10.1 hematocrit 32.8 platelet count 167,000. Potassium 4.3 sodium 140 BUN 9 creatinine 0.9 D-dimer elevated at 4.68. Glucose elevated slightly at 197 alk phos 130 troponin negative BNP was elevated at 477. CTA of the chest was obtained secondary to elevated D- dimer and shortness of breath. This revealed trace right basilar effusion with adjacent atelectasis versus infiltrates with interlobular septal thickening which may represent a component of pulmonary edema no evidence of pulmonary embolus. Moderately enlarged hilar and mediastinal lymph nodes with presence of multiple pulmonary nodules seen throughout the bilateral hemithoraces. She was treated with Lasix 20 mg in the ER. ER physician did contact Dr. Navarro, oncology he requested echo to be obtained. Sylwia will be admitted secondary to shortness of breath due to possible heart failure/pulmonary edema. Oncology notes from 10/19/[address] Louie Rouse: Patient had right hemicolectomy for perforated cecal cancer. She had metastatic disease noted to lungs and liver currently stage IV colon adenocarcinoma. After right hemicolectomy in [place] hematology and oncology recommended palliative chemotherapy which she has continued here in [place]. Her current regimen includes 5-FU, oxaliplatin, leucovorin, and bevacizumab given every 14 days - Related Data Allergies/Adverse Reactions: Allergies Allergy/AdvReac Type Severity Reaction Status Date / Time Latex, Natural Rubber Allergy Hives Verified 10/24/20 10:17 lisinopril Allergy Swelling Verified 10/24/20 10:17 Sulfa (Sulfonamide Allergy Hives Verified 10/24/20 10:17 Antibiotics) Home Medications: Home Meds Aspirin [[place] Aspirin] 81 mg PO DAILY 05/28/14 [History] Losartan [Cozaar] 25 mg PO BEDTIME 05/28/14 [History] metFORMIN [Glucophage] 1,000 mg PO BID 05/28/14 [History] Latanoprost 1 drop EYEBOTH BEDTIME 04/24/20 [History] Bismuth Subsalicylate [Pepto-Bismol] 15 ml PO ASDIRECTED PRN 08/22/20 [History] Past Medical History HEENT History: Reports: Other (See Below) Other HEENT History: wears glasses, top denture, lower partial Cardiovascular History: Reports: Hypertension Respiratory History: Reports: None Gastrointestinal History: Reports: Colon Polyp, Other (See Below) Other Gastrointestinal History: colorectal cancer with mets to liver Genitourinary History: Reports: UTI, Recurrent INTER[employer] BRAND History: Reports: Musculoskeletal History: Reports: Osteoarthritis Neurological History: Reports: None Psychiatric History: Reports: Depression Endocrine/Metabolic History: Reports: None, Diabetes, Type II, Obesity/BMI 30+ Hematologic History: Reports: Anemia, Blood Transfusion(s) Immunologic History: Reports: None Oncologic (Cancer) History: Reports: Colon, Liver Other Oncologic History: colorectal cancer with mets to liver Dermatologic History: Reports: None - Infectious Disease History Infectious Disease History: Reports: Chicken Pox, Measles, Mumps - Past Surgical History Head Surgeries/Procedures: Reports: None HEENT Surgical History: Reports: Tonsillectomy Cardiovascular Surgical History: Reports: None Respiratory Surgical History: Reports: None GI Surgical History: Reports: Colon, Colonoscopy, EGD, Other (See Below) Other GI Surgeries/Procedures: laparoscopic hemicolectomy in [place] Jul 17 2020 Female Surgical History: Reports: Section, Hysterectomy Endocrine Surgical History: Reports: None Neurological Surgical History: Reports: None Musculoskeletal Surgical History: Reports: None Oncologic Surgical History: Reports: Other (See Below) Other Oncologic Surgeries/Procedures: laparoscopic rt hemicolectomy on Jul 17, 2020 Dermatological Surgical History: Reports: None Social & Family History - Family History Family Medical History: No Pertinent Family History - Tobacco Use Tobacco Use Status *Q: Never Tobacco User - Caffeine Use Caffeine Use: Reports: Soda Caffeine Use Comment: "once in a while" - Recreational Drug Use Recreational Drug Use: No H&P Review of Systems - Review of Systems: Review Of Systems: See Below General: Denies: Fever, Chills, Malaise, Weakness HEENT: Reports: No Symptoms. Denies: Headaches, Sinus Congestion, Sore Throat, Vertigo Pulmonary: Reports: Shortness of Breath. Denies: Wheezing, Cough Cardiovascular: Reports: Dyspnea on Exertion, Blood Pressure Problem. Denies: Chest Pain, Palpitations, Edema Gastrointestinal: Reports: No Symptoms. Denies: Abdominal Pain, Black Stool, Bloody Stool, Diarrhea, Decreased Appetite, Nausea, Vomiting Genitourinary: Reports: No Symptoms. Denies: Dysuria, Frequency, Burning Musculoskeletal: Reports: No Symptoms Skin: Reports: No Symptoms Psychiatric: Reports: No Symptoms Neurological: Reports: No Symptoms Hematologic/Lymphatic: Reports: No Symptoms Immunologic: Reports: No Symptoms Exam - Exam Exam: See Below - Vital Signs Vital Signs: Last Vital Signs Temp 96.8 F L 10/24/20 10:17 Pulse 88 10/24/20 12:35 Resp 17 10/24/20 12:35 BP 176/99 H 10/24/20 12:35 Pulse Ox 98 10/24/20 12:35 Weight: 118.388 kg - Exam Quality Assessment: DVT Prophylaxis. No: Supplemental Oxygen General: Alert, Oriented, Cooperative, Mild Distress HEENT: Conjunctiva Clear, Mucosa Moist & [place], Posterior Pharynx Clear Neck: No: JVD (Bibasilar) Lungs: Normal Respiratory Effort, Decreased Breath Sounds, Crackles Cardiovascular: Regular Rate, Regular Rhythm, Normal S1, Normal S2 GI/Abdominal Exam: Normal Bowel Sounds, Soft, Non-Tender Back Exam: Normal Inspection, Full Range of Motion Extremities: Normal Inspection, Normal Range of Motion, Non-Tender, No Pedal Edema Neuro Extensive - Mental Status: Alert, Oriented x3 Neuro Extensive - Motor, Sensory, Reflexes: CN II-XII Intact Psychiatric: Alert, Normal Affect, Normal Mood - Patient Data Lab Results Last 24 hrs: Laboratory Results - last 24 hr 10/24/20 10/24/20 10/24/20 Range/Units 10:25 10:25 10:25 WBC 5.69 (4.0-11.0) K/uL RBC 3.79 L (4.30-5.90) M/uL Hgb 10.1 L (12.0-16.0) g/dL Hct 32.8 L (36.0-46.0) % MCV 86.5 (80.0-98.0) fL MCH 26.6 L (27.0-32.0) pg MCHC 30.8 L (31.0-37.0) g/dL RDW Std Deviation 68.8 H (28.0-62.0) fl RDW Coeff of Bret 22 H (11.0-15.0) % Plt Count 167 (150-400) K/uL MPV 9.80 (7.40-12.00) fL Neut % (Auto) 48.3 (48.0-80.0) % Lymph % (Auto) 38.7 (16.0-40.0) % [place] % (Auto) 8.6 (0.0-15.0) % Eos % (Auto) 4.0 (0.0-7.0) % Baso % (Auto) 0.4 (0.0-1.5) % Neut # (Auto) 2.8 (1.4-5.7) K/uL Lymph # (Auto) 2.2 (0.6-2.4) K/uL [place] # (Auto) 0.5 (0.0-0.8) K/uL Eos # (Auto) 0.2 (0.0-0.7) K/uL Baso # (Auto) 0.0 (0.0-0.1) K/uL Nucleated RBC % 0.0 /100WBC Nucleated RBCs # 0 K/uL INR 1.01 D-Dimer, Quantitative 4.68 H (0.0-0.50) mg/L FEU Sodium 140 (136-145) mmol/L Potassium 4.3 (3.5-5.1) mmol/L Chloride 107 (98-107) mmol/L Carbon Dioxide 24.9 (21.0-32.0) mmol/L BUN 9 (7.0-18.0) mg/dL Creatinine 0.9 (0.6-1.0) mg/dL Est Cr Clr Drug Dosing 49.78 mL/min Estimated GFR (MDRD) > 60.0 ml/min Glucose 197 H (74-106) mg/dL Calcium 8.6 (8.5-10.1) mg/dL Total Bilirubin 0.4 (0.2-1.0) mg/dL AST 30 (15-37) IU/L ALT 31 (14-63) IU/L Alkaline Phosphatase 130 H (46-116) U/L Troponin I < 0.050 (0.000-0.056) ng/mL B-Natriuretic Peptide (<100) PG/ML Total Protein 7.3 (6.4-8.2) g/dL Albumin 3.0 L (3.4-5.0) g/dL Globulin 4.3 H (2.6-4.0) g/dL Albumin/Globulin Ratio 0.7 L (0.9-1.6) Urine Color Urine Appearance Urine pH (5.0-8.0) Ur Specific [place] (1.001-1.035) Urine Protein (NEGATIVE) mg/dL Urine Glucose (UA) (NEGATIVE) mg/dL Urine Ketones (NEGATIVE) mg/dL Urine Occult Blood (NEGATIVE) Urine Nitrite (NEGATIVE) Urine Bilirubin (NEGATIVE) Urine Urobilinogen (<2.0) EU/dL Ur Leukocyte Esterase (NEGATIVE) Urine RBC (0-2/HPF) Urine WBC (0-5/HPF) Ur Epithelial Cells (NONE-FEW) Urine Bacteria (NEGATIVE) SARS-CoV-2 RNA (CHRISTINE) (NEGATIVE) 10/24/20 10/24/20 10/24/20 Range/Units 10:25 11:23 14:38 WBC (4.0-11.0) K/uL RBC (4.30-5.90) M/uL Hgb (12.0-16.0) g/dL Hct (36.0-46.0) % MCV (80.0-98.0) fL MCH (27.0-32.0) pg MCHC (31.0-37.0) g/dL RDW Std Deviation (28.0-62.0) fl RDW Coeff of Bret (11.0-15.0) % Plt Count (150-400) K/uL MPV (7.40-12.00) fL Neut % (Auto) (48.0-80.0) % Lymph % (Auto) (16.0-40.0) % [place] % (Auto) (0.0-15.0) % Eos % (Auto) (0.0-7.0) % Baso % (Auto) (0.0-1.5) % Neut # (Auto) (1.4-5.7) K/uL Lymph # (Auto) (0.6-2.4) K/uL [place] # (Auto) (0.0-0.8) K/uL Eos # (Auto) (0.0-0.7) K/uL Baso # (Auto) (0.0-0.1) K/uL Nucleated RBC % /100WBC Nucleated RBCs # K/uL INR D-Dimer, Quantitative (0.0-0.50) mg/L FEU Sodium (136-145) mmol/L Potassium (3.5-5.1) mmol/L Chloride (98-107) mmol/L Carbon Dioxide (21.0-32.0) mmol/L BUN (7.0-18.0) mg/dL Creatinine (0.6-1.0) mg/dL Est Cr Clr Drug Dosing mL/min Estimated GFR (MDRD) ml/min Glucose (74-106) mg/dL Calcium (8.5-10.1) mg/dL Total Bilirubin (0.2-1.0) mg/dL AST (15-37) IU/L ALT (14-63) IU/L Alkaline Phosphatase (46-116) U/L Troponin I (0.000-0.056) ng/mL B-Natriuretic Peptide 477 H (<100) PG/ML Total Protein (6.4-8.2) g/dL Albumin (3.4-5.0) g/dL Globulin (2.6-4.0) g/dL Albumin/Globulin Ratio (0.9-1.6) Urine Color YELLOW Urine Appearance CLEAR Urine pH 6.0 (5.0-8.0) Ur Specific [place] 1.020 (1.001-1.035) Urine Protein NEGATIVE (NEGATIVE) mg/dL Urine Glucose (UA) NEGATIVE (NEGATIVE) mg/dL Urine Ketones NEGATIVE (NEGATIVE) mg/dL Urine Occult Blood NEGATIVE (NEGATIVE) Urine Nitrite POSITIVE H (NEGATIVE) Urine Bilirubin NEGATIVE (NEGATIVE) Urine Urobilinogen 0.2 (<2.0) EU/dL Ur Leukocyte Esterase NEGATIVE (NEGATIVE) Urine RBC 0-2 (0-2/HPF) Urine WBC 0-3 (0-5/HPF) Ur Epithelial Cells OCCASIONAL (NONE-FEW) Urine Bacteria 3+ H (NEGATIVE) SARS-CoV-2 RNA (CHRISTINE) NEGATIVE (NEGATIVE) Result Diagrams: 10/24/20 10:25 10/24/20 10:25 Sepsis Event Note - Evaluation Sepsis Screening Result: No Definite Risk - Focused Exam Vital Signs: Vital Signs Temp Pulse Resp BP Pulse Ox 10/24/20 12:35 88 17 176/99 H 98 10/24/20 11:29 89 18 189/97 H 95 10/24/20 10:57 72 18 169/90 H 97 10/24/20 10:17 96.8 F L 75 16 173/87 H 98 - Problem List (1) Dyspnea SNOMED Code(s): 751498959 ICD Code: R06.00 - DYSPNEA, UNSPECIFIED Status: Acute Current Visit: No Qualifiers: Dyspnea type: dyspnea on exertion Qualified Code(s): R06.00 - Dyspnea, unspecified (2) Congestive heart failure SNOMED Code(s): 85719969 ICD Code: I50.9 - HEART FAILURE, UNSPECIFIED Status: Suspected Current Visit: Yes Qualifiers: Heart failure type: unspecified Heart failure chronicity: acute Qualified Code(s): I50.9 - Heart failure, unspecified (3) UTI, Urinary tract infectious disease SNOMED Code(s): 07361295 ICD Code: N39.0 - URINARY TRACT INFECTION, SITE NOT SPECIFIED Status: Acute Current Visit: Yes (4) Port-A-Cath in place SNOMED Code(s): 967216800 ICD Code: Z95.828 - PRESENCE OF OTHER VASCULAR IMPLANTS AND GRAFTS Status: Chronic Current Visit: No (5) HTN (hypertension) SNOMED Code(s): 24924435 ICD Code: I10 - ESSENTIAL (PRIMARY) HYPERTENSION Status: Chronic Current Visit: No Qualifiers: Hypertension type: essential hypertension Qualified Code(s): I10 - Essent ial (primary) hypertension (6) History of type 2 diabetes mellitus SNOMED Code(s): 411839687 ICD Code: Z86.39 - PERSONAL HISTORY OF ENDO, NUTRITIONAL AND METABOLIC DISEASE Status: Chronic Current Visit: No (7) Obesity SNOMED Code(s): 003085838, 785871653 ICD Code: E66.9 - OBESITY, UNSPECIFIED Status: Chronic Current Visit: No (8) Metastatic colon cancer in female SNOMED Code(s): 465874467, 666444282 ICD Code: C18.9 - MALIGNANT NEOPLASM OF COLON, UNSPECIFIED Status: Chronic Current Visit: Yes Problem List Initiated/Reviewed/Updated: Yes Orders Last 24hrs: Active Orders 24 hr Category Date Time Status Admission Status [Patient Status] [ADT] Stat ADT 10/24/20 14:53 Active EKG Documentation Completion [RC] STAT Care 10/24/20 10:14 Active Echo Comp wo Cont [US] Stat Exams 10/24/20 13:54 Ordered CULTURE URINE [] Stat Lab 10/24/20 11:23 Received Assessment/Plan Comment:: This 75-year-old female admitted with dyspnea on exertion. Suspect possible CHF. 1. Dyspnea, suspect CHF -Pulmonary edema noted on CTA of the chest. Currently not needing oxygen -We will obtain echo -Monitor strict I's and O's, daily weights, 2 L fluid restriction, 2 g low- sodium diet -Lasix 40 mg IV twice daily -Denies any chest pain or palpitations -Monitor on telemetry 2. Hypertension -Takes losartan at night, -will monitor closely with diuresis may need to give extra dose or increase dose of losartan 3. DM type II -Hold Metformin -NovoLog sliding scale 3 times daily AC 4. Metastatic colorectal cancer -Oncology records reviewed and in paper chart. VTE prophylaxis: Lovenox CODE STATUS: DNR/DNI, she would also like to look at making living will. Will place pastoral care/spiritual care consult to help with this Dispo: 1 to 2 days pending improvement
[2020-10-24] MEDS ORDERED: Acetaminophen 325 MG Tab PO PRN (15:55)
[2020-10-24] MEDS ORDERED: Docusate Sodium 100 MG Cap PO PRN (15:55)
[2020-10-24] MEDS ORDERED: Ondansetron 4 MG/2 ML SDV IVPUSH PRN (15:55)
[2020-10-24] MEDS ORDERED: Sodium Chloride 0.9% 2.5 ML Syringe FLUSH PRN (15:55)
[2020-10-24] MEDS ORDERED: Glucagon,Human Recombinant 1 MG Vial IM PRN (15:58)
[2020-10-24] MEDS ORDERED: 50% Dextrose in Water 50 ML Syringe IV PRN (15:58)
[2020-10-24] MEDS ORDERED: Calcium Carbonate 500 MG Tab.Chew PO PRN (15:59)
[2020-10-24] MEDS ORDERED: Enoxaparin 40 MG/0.4 ML Syringe SUBCUT SCH (16:00)
[2020-10-24] MEDS: Furosemide 40 MG/4 ML VIAL IVPUSH SCH (17:22)
[2020-10-24] MEDS: Insulin Aspart 100 Units/ML 3 ML Pen SUBCUT SCH (18:18)
[2020-10-24] MEDS ORDERED: Latanoprost 0.005% Ophth Soln 2.5 ML Bottle EYEBOTH SCH (21:00)
[2020-10-24] MEDS ORDERED: Losartan 50 MG Tab PO SCH (21:00)
[2020-10-24] MEDS: Cephalexin 500 MG Cap PO SCH (23:39)
[2020-10-25 06:03] LABS: BLOOD UREA NITROGEN,BUN 8 mg/dL (7.0-18.0); CARBON DIOXIDE,CO2 26.9 mmol/L (21.0-32.0); CHLORIDE,CL 103 mmol/L (98-107); GLUCOSE RANDOM 155 mg/dL (74-106); POTASSIUM,K 3.6 mmol/L (3.5-5.1); SODIUM,NA 140 mmol/L (136-145)
[2020-10-25] MEDS ORDERED: Magnesium Sulfate/Water 2 GM/50 ML BAG IV ONE (07:47)
[2020-10-25 08:00] VITALS: BP 143/71; PULSE 68
[2020-10-25] MEDS: Insulin Aspart 100 Units/ML 3 ML Pen SUBCUT SCH (08:36)
[2020-10-25] MEDS: Furosemide 40 MG/4 ML VIAL IVPUSH SCH (08:37)
[2020-10-25] MEDS: Cephalexin 500 MG Cap PO SCH (08:37)
[2020-10-25] MEDS ORDERED: Fluconazole 100 MG Tab PO ONE (08:54)
[2020-10-25] MEDS ORDERED: Aspirin 81 MG Tab.Chew PO SCH (09:00)
--- NOTE | 2020-10-25 11:47 | PCM.DCSUM1 ---
Discharge Summary - Hospital Course Brief History: This 75-year-old female with past medical history of diabetes type 2, hypertension, metastatic colorectal cancer status post right hemicolectomy in July 2020 presented to the ER today with concerns of shortness of breath. She reports the last couple days she has been having increasing shortness of breath especially with exertion. She reports this morning she woke up feeling increasing shortness of breath which did eventually settle down but with exertion this worsened. She reports she slowly got better and went to her chemotherapy appointment but was noted to have significantly elevated blood pressure and continued to feel shortness of breath with exertion. The oncology nurse recommended her to be evaluated in the ER. She reports history of being on Lasix in the past but is unsure why. She denies any chest pain or palpitations. She denies any cough fevers or chills. She reports that she is on cycle 4/12 of chemotherapy for her colorectal cancer. She recently had her port repositioned and has been doing well since. She has followed up recently with Dr. Suarez regarding this and site looks intact and new port is working well. She reports at this appointment Dr. Suarez she was noted to be 252 pounds but today in oncology she was noted to be 261 pounds which is a large jump. Denies any history of heart failure or any CAD or MA in the past. Denies any family history of CAD or family history of heart failure. She denies any history of PE or DVT. She denies any pain to lower extremities. Denies any diarrhea constipation black or bloody bowel movements. Reports she is doing overall well and was hoping to continue with chemotherapy. She denies any smoking. No recreational drug use or alcohol use. In the ER white count stable at 5.69. Hemoglobin 10.1 hematocrit 32.8 platelet count 167,000. Potassium 4.3 sodium 140 BUN 9 creatinine 0.9 D-dimer elevated at 4.68. Glucose elevated slightly at 197 alk phos 130 troponin negative BNP was elevated at 477. CTA of the chest was obtained secondary to elevated D-dimer and shortness of breath. This revealed trace right basilar effusion with adjacent atelectasis versus infiltrates with interlobular septal thickening which may represent a component of pulmonary edema no evidence of pulmonary embolus. Moderately enlarged hilar and mediastinal lymph nodes with presence of multiple pulmonary nodules seen throughout the bilateral hemithoraces. She was treated with Lasix 20 mg in the ER. ER physician did contact Dr. Navarro, oncology he requested echo to be obtained. Sylwia will be admitted secondary to shortness of breath due to possible heart failure/pulmonary edema. Oncology notes from 10/19/[address] Louie Rouse: Patient had right hemicolectomy for perforated cecal cancer. She had metastatic disease noted to lungs and liver currently stage IV colon adenocarcinoma. After right hemicolectomy in [place] hematology and oncology recommended palliative chemotherapy which she has continued here in [place]. Her current regimen includes 5-FU, oxaliplatin, leucovorin, and bevacizumab given every 14 days Diagnosis: Stroke: No - Discharge Data Discharge Date: 10/25/20 Discharge Disposition: Home, Self-Care 01 Condition: Good - Referral to Home Health Primary Care Physician: Blake Munoz MD - Discharge Diagnosis/Problem(s) (1) Dyspnea SNOMED Code(s): 692726798 ICD Code: R06.00 - DYSPNEA, UNSPECIFIED Status: Acute Current Visit: No Qualifiers: Dyspnea type: dyspnea on exertion Qualified Code(s): R06.00 - Dyspnea, unspecified (2) Congestive heart failure SNOMED Code(s): 39590972 ICD Code: I50.9 - HEART FAILURE, UNSPECIFIED Status: Suspected Current Visit: Yes Qualifiers: Heart failure type: unspecified Heart failure chronicity: acute Qualified Code(s): I50.9 - Heart failure, unspecified (3) UTI, Urinary tract infectious disease SNOMED Code(s): 83315510 ICD Code: N39.0 - URINARY TRACT INFECTION, SITE NOT SPECIFIED Status: Acute Current Visit: Yes (4) Port-A-Cath in place SNOMED Code(s): 173279355 ICD Code: Z95.828 - PRESENCE OF OTHER VASCULAR IMPLANTS AND GRAFTS Status: Chronic Current Visit: No (5) HTN (hypertension) SNOMED Code(s): 94202284 ICD Code: I10 - ESSENTIAL (PRIMARY) HYPERTENSION Status: Chronic Current Visit: No Qualifiers: Hypertension type: essential hypertension Qualified Code(s): I10 - Essential (primary) hypertension (6) History of type 2 diabetes mellitus SNOMED Code(s): 978880612 ICD Code: Z86.39 - PERSONAL HISTORY OF ENDO, NUTRITIONAL AND METABOLIC DISEASE Status: Chronic Current Visit: No (7) Obesity SNOMED Code(s): 161625233, 374359534 ICD Code: E66.9 - OBESITY, UNSPECIFIED Status: Chronic Current Visit: No (8) Metastatic colon cancer in female SNOMED Code(s): 285859891, 620199609 ICD Code: C18.9 - MALIGNANT NEOPLASM OF COLON, UNSPECIFIED Status: Chronic Current Visit: Yes - Patient Summary/Data Consults: Consultations 10/24/20 15:57 Consult to Spiritual Care [CONS] Routine Hospital Course: Admission diagnosis: Dyspnea Pulmonary edema Suspect CHF UTI Discharge diagnoses: Dyspnea Pulmonary edema UTI Other PMH Metastatic colon cancer with mets to liver and lung Hypertension Obesity DM type II Port-A-Cath in place Sylwia was admitted secondary to sudden onset of dyspnea. She was found to have pulmonary edema on CT angio. No PE noted. She has no past medical history of CHF but in previous chest imaging she has noted to have some pulmonary kingsley estion. She reports she was on Lasix at one point but unsure why and this was stopped short time later. She denies any peripheral edema. But she did note a 10 pound weight gain from appointment with Dr. Suarez to her oncology appointment yesterday. Which was 2 days apart. While here she was treated with Lasix 40 mg IV daily. She diuresed well and had significant improvement in dyspnea after Lasix dose was given. Today she continues to feel well and is down about 3 kg. We will discharge her home today with Lasix 20 mg daily for 1 week then she is to monitor her weight closely as she may need dosing intermittently possibly every other day or every couple days to keep congestion and edema at a minimum. Echo was obtained on her stay. Image quality is poor but normal LV diastolic filling was noted grossly normal left ventricular function was estimated at 55 to 60% regional wall motion abnormalities cannot be excluded there is mild aortic valve sclerosis without stenosis trace MR trace tricuspid valve regurg. No obvious heart failure noted on echo pulmonary congestion could be secondary to potentially lung metastases. Will need close follow-up with PCP as well as oncology. She was also noted to have mild UTI UC is pending she started on Keflex 500 mg twice daily this will be continued for 4 more days total of 5-day treatment. UC will be monitored if antibiotics need to be changed she will be contacted. She is to follow-up with PCP in 1 week and keep a log of her weight. She was also counseled on monitoring her salt intake to limit elevations in her blood pressure as well as retention of fluid. She verbalized understanding of this. She is to return to the ER clinic if concerns should arise. - Patient Instructions Diet: Low Sodium (2 gm) Activity: As Tolerated, No Strenuous Activities Showering/Bathing: May Shower Notify Provider of: Fever, Increased Pain, Swelling and Redness, Drainage, Nausea and/or Vomiting Other/Special Instructions: Monitor weight daily, keep log. If you notice 2-3 lbs weight gain in 3-5 days let your provider know quickly. You may need to increase Lasix dosing or frequency. - Discharge Plan *PRESCRIPTION DRUG MONITORING PROGRAM REVIEWED*: Not Applicable *COPY OF PRESCRIPTION DRUG MONITORING REPORT IN PATIENT NADIA: Not Applicable Prescriptions/Med Rec: cephALEXin [Keflex] 500 mg PO BID #8 cap Furosemide [Lasix] 20 mg PO DAILY #15 tablet Home Medications: Home Meds Aspirin [[place] Aspirin] 81 mg PO DAILY 05/28/14 [History] Losartan [Cozaar] 25 mg PO BEDTIME 05/28/14 [History] metFORMIN [Glucophage] 1,000 mg PO BID 05/28/14 [History] Latanoprost 1 drop EYEBOTH BEDTIME 04/24/20 [History] Magnesium Oxide [Magnesium] 1 cap PO DAILY 10/24/20 [History] Furosemide [Lasix] 20 mg PO DAILY #15 tablet 10/25/20 [Rx] cephALEXin [Keflex] 500 mg PO BID #8 cap 10/25/20 [Rx] Oxygen Therapy Mode: Room Air Patient Handouts: Heart Failure, Self Care, Heart Failure Action Plan, Urinary Tract Infection, Adult, [id number], Heart Failure Eating Plan Referrals: Blake Munoz MD [Primary Care Provider] - 10/31/20 1:00 pm - Discharge Summary/Plan Comment DC Time >30 min.: No - Patient Data Vitals - Most Recent: Last Vital Signs Temp 96.4 F L 10/25/20 07:58 Pulse 68 10/25/20 07:58 Resp 22 H 10/25/20 07:58 BP 143/71 H 10/25/20 07:58 Pulse Ox 96 10/25/20 07:58 Weight - Most Recent: 113.716 kg I&O - Last 24 hours: Intake & Output 10/24/20 10/25/20 10/25/20 22:59 06:59 14:59 Intake Total 1000 Output Total 3600 Balance -2600 Lab Results - Last 24 hrs: Laboratory Results - last 24 hr 10/24/20 10/24/20 10/24/20 Range/Units 10:25 10:25 11:23 WBC (4.0-11.0) K/uL RBC (4.30-5.90) M/uL Hgb (12.0-16.0) g/dL Hct (36.0-46.0) % MCV (80.0-98.0) fL MCH (27.0-32.0) pg MCHC (31.0-37.0) g/dL RDW Std Deviation (28.0-62.0) fl RDW Coeff of Bret (11.0-15.0) % Plt Count (150-400) K/uL MPV (7.40-12.00) fL Neut % (Auto) (48.0-80.0) % Lymph % (Auto) (16.0-40.0) % Roosevelt % (Auto) (0.0-15.0) % Eos % (Auto) (0.0-7.0) % Baso % (Auto) (0.0-1.5) % Neut # (Auto) (1.4-5.7) K/uL Lymph # (Auto) (0.6-2.4) K/uL Roosevelt # (Auto) (0.0-0.8) K/uL Eos # (Auto) (0.0-0.7) K/uL Baso # (Auto) (0.0-0.1) K/uL Nucleated RBC % /100WBC Nucleated RBCs # K/uL D-Dimer, Quantitative 4.68 H (0.0-0.50) mg/L FEU Sodium (136-145) mmol/L Potassium (3.5-5.1) mmol/L Chloride (98-107) mmol/L Carbon Dioxide (21.0-32.0) mmol/L BUN (7.0-18.0) mg/dL Creatinine (0.6-1.0) mg/dL Est Cr Clr Drug Dosing mL/min Estimated GFR (MDRD) ml/min Glucose (74-106) mg/dL POC Glucose (60-110) mg/dL Calcium (8.5-10.1) mg/dL Magnesium (1.8-2.4) mg/dL B-Natriuretic Peptide 477 H (<100) PG/ML Urine RBC 0-2 (0-2/HPF) Urine WBC 0-3 (0-5/HPF) Ur Epithelial Cells OCCASIONAL (NONE-FEW) Urine Bacteria 3+ H (NEGATIVE) SARS-CoV-2 RNA (CHRISTINE) (NEGATIVE) 10/24/20 10/24/20 10/25/20 Range/Units 14:38 17:31 05:20 WBC 4.84 (4.0-11.0) K/uL RBC 3.66 L (4.30-5.90) M/uL Hgb 9.7 L (12.0-16.0) g/dL Hct 31.3 L (36.0-46.0) % MCV 85.5 (80.0-98.0) fL MCH 26.5 L (27.0-32.0) pg MCHC 31.0 (31.0-37.0) g/dL RDW Std Deviation 69.9 H (28.0-62.0) fl RDW Coeff of Bret 23 H (11.0-15.0) % Plt Count 184 (150-400) K/uL MPV 9.50 (7.40-12.00) fL Neut % (Auto) 37.8 L (48.0-80.0) % Lymph % (Auto) 42.4 H (16.0-40.0) % Roosevelt % (Auto) 13.8 (0.0-15.0) % Eos % (Auto) 5.6 (0.0-7.0) % Baso % (Auto) 0.4 (0.0-1.5) % Neut # (Auto) 1.8 (1.4-5.7) K/uL Lymph # (Auto) 2.1 (0.6-2.4) K/uL Roosevelt # (Auto) 0.7 (0.0-0.8) K/uL Eos # (Auto) 0.3 (0.0-0.7) K/uL Baso # (Auto) 0.0 (0.0-0.1) K/uL Nucleated RBC % 0.0 /100WBC Nucleated RBCs # 0 K/uL D-Dimer, Quantitative (0.0-0.50) mg/L FEU Sodium (136-145) mmol/L Potassium (3.5-5.1) mmol/L Chloride (98-107) mmol/L Carbon Dioxide (21.0-32.0) mmol/L BUN (7.0-18.0) mg/dL Creatinine (0.6-1.0) mg/dL Est Cr Clr Drug Dosing mL/min Estimated GFR (MDRD) ml/min Glucose (74-106) mg/dL POC Glucose 135 H (60-110) mg/dL Calcium (8.5-10.1) mg/dL Magnesium (1.8-2.4) mg/dL B-Natriuretic Peptide (<100) PG/ML Urine RBC (0-2/HPF) Urine WBC (0-5/HPF) Ur Epithelial Cells (NONE-FEW) Urine Bacteria (NEGATIVE) SARS-CoV-2 RNA (CHRISTINE) NEGATIVE (NEGATIVE) 10/25/20 10/25/20 Range/Units 05:20 06:23 WBC (4.0-11.0) K/uL RBC (4.30-5.90) M/uL Hgb (12.0-16.0) g/dL Hct (36.0-46.0) % MCV (80.0-98.0) fL MCH (27.0-32.0) pg MCHC (31.0-37.0) g/dL RDW Std Deviation (28.0-62.0) fl RDW Coeff of Bret (11.0-15.0) % Plt Count (150-400) K/uL MPV (7.40-12.00) fL Neut % (Auto) (48.0-80.0) % Lymph % (Auto) (16.0-40.0) % Roosevelt % (Auto) (0.0-15.0) % Eos % (Auto) (0.0-7.0) % Baso % (Auto) (0.0-1.5) % Neut # (Auto) (1.4-5.7) K/uL Lymph # (Auto) (0.6-2.4) K/uL Roosevelt # (Auto) (0.0-0.8) K/uL Eos # (Auto) (0.0-0.7) K/uL Baso # (Auto) (0.0-0.1) K/uL Nucleated RBC % /100WBC Nucleated RBCs # K/uL D-Dimer, Quantitative (0.0-0.50) mg/L FEU Sodium 140 (136-145) mmol/L Potassium 3.6 (3.5-5.1) mmol/L Chloride 103 (98-107) mmol/L Carbon Dioxide 26.9 (21.0-32.0) mmol/L BUN 8 (7.0-18.0) mg/dL Creatinine 0.8 (0.6-1.0) mg/dL Est Cr Clr Drug Dosing 56.00 mL/min Estimated GFR (MDRD) > 60.0 ml/min Glucose 155 H (74-106) mg/dL POC Glucose 143 H (60-110) mg/dL Calcium 8.4 L (8.5-10.1) mg/dL Magnesium 1.7 L (1.8-2.4) mg/dL B-Natriuretic Peptide (<100) PG/ML Urine RBC (0-2/HPF) Urine WBC (0-5/HPF) Ur Epithelial Cells (NONE-FEW) Urine Bacteria (NEGATIVE) SARS-CoV-2 RNA (CHRISTINE) (NEGATIVE) Med Orders - Current: Current Medications Acetaminophen (Tylenol) 650 mg PO Q4H PRN PRN Reason: Pain (Mild 1-3)/fever Aspirin (Aspirin) 81 mg PO DAILY [facility] Last Admin: 10/25/20 08:37 Dose: 81 mg Documented by: Calcium Carbonate/Glycine (Tums) 1,000 mg PO Q2HR PRN PRN Reason: Indigestion Cephalexin (Keflex) 500 mg PO BID [facility] Last Admin: 10/25/20 08:37 Dose: 500 mg Documented by: Dextrose/Water (Dextrose 50% In Water) 50 ml IV ASDIRECTED PRN PRN Reason: Hypoglycemia Docusate Sodium (Colace) 100 mg PO BID PRN PRN Reason: Constipation Enoxaparin Sodium (Lovenox) 40 mg SUBCUT Q24H [facility] Last Admin: 10/24/20 17:20 Dose: 40 mg Documented by: Furosemide (Lasix) 40 mg IVPUSH DAILY [facility] Last Admin: 10/25/20 08:37 Dose: 40 mg Documented by: Glucagon (Glucagen) 1 mg IM ASDIRECTED PRN PRN Reason: Hypoglycemia Heparin Sodium (Porcine) (Heparin Lock Flush 100 Units/Ml) 500 units FLUSH ASDIRECTED PRN PRN Reason: deaccess port Last Admin: 10/25/20 11:25 Dose: 500 units Documented by: Insulin Aspart (Novolog) 0 unit SUBCUT TIDAC [facility]; Protocol Last Admin: 10/25/20 08:36 Dose: Not Given Documented by: Latanoprost (Xalatan 0.005% Ophth Soln) 0 ml EYEBOTH BEDTIME [facility] Last Admin: 10/24/20 20:41 Dose: Not Given Documented by: Losartan Potassium (Cozaar) 25 mg PO BEDTIME [facility] Last Admin: 10/24/20 20:38 Dose: 25 mg Documented by: Ondansetron HCl (Zofran) 4 mg IVPUSH Q4H PRN PRN Reason: Nausea Sodium Chloride (Saline Flush) 2.5 ml FLUSH ASDIRECTED PRN PRN Reason: Keep Vein Open Discontinued Medications Cephalexin (Keflex) 500 mg PO ONETIME ONE Stop: 10/24/20 14:39 Last Admin: 10/24/20 14:43 Dose: 500 mg Documented by: Fluconazole (Diflucan) 100 mg PO ONETIME ONE Stop: 10/25/20 08:55 Last Admin: 10/25/20 09:20 Dose: 100 mg Documented by: Furosemide (Lasix) 20 mg IVPUSH ONETIME ONE Stop: 10/24/20 14:53 Last Admin: 10/24/20 18:30 Dose: Not Given Documented by: Magnesium Sulfate (Magnesium Sulfate In Water 2 Gm/50 Ml) 2 gm in 50 mls @ 50 mls/hr IV ONETIME ONE Stop: 10/25/20 08:46 Last Admin: 10/25/20 08:37 Dose: 50 mls/hr Documented by: Iopamidol (Isovue Multipack-370 (76%)) 100 ml IVPUSH ONETIME STA Stop: 10/24/20 13:51 Last Admin: 10/24/20 14:44 Dose: 100 ml Documented by: - Exam General: Reports: Alert, Oriented, Cooperative, No Acute Distress Lungs: Reports: Clear to Auscultation, Normal Respiratory Effort Cardiovascular: Reports: Regular Rate, Regular Rhythm GI/Abdominal Exam: Normal Bowel Sounds, Soft, Non-Tender Back Exam: Reports: Normal Inspection, Full Range of Motion Extremities: Normal Inspection, Normal Range of Motion, Non-Tender, No Pedal Edema Wound/Incisions: Reports: Healing Well (Old left chest Port-A-Cath site healing well.) Neurological: Reports: No New Focal Deficit Psy/Mental Status: Reports: Alert, Normal Affect, Normal Mood
--- NOTE | 2020-10-30 12:44 | ECHO ---
EXAM DATE: 10/24/20 PATIENT'S AGE: 75 The ECHO report has been scanned into [facility] and can be seen in this patient's EMR (Electronic Medical Record) under the REPORTS section. The report has also been scanned into PACS. SANTANA
== END 2020-10-25 11:30 | disposition home or self-care (01) ==
LOC: MW.ED 09:40 → MW.MS 15:39
PROVIDERS: ADMIT Internal Medicine; ATTEND Internal Medicine
DX: R06.00 Dyspnea, unspecified (principal); I11.0 Hypertensive heart disease with heart failure; I50.1 Left ventricular failure, unspecified; E11.9 Type 2 diabetes mellitus without complications; N39.0 Urinary tract infection, site not specified; E66.9 Obesity, unspecified; C18.9 Malignant neoplasm of colon, unspecified; Z20.822 Contact with and (suspected) exposure to COVID-19; Z90.49 Acquired absence of other specified parts of digestive tract; Z88.2 Allergy status to sulfonamides; Z88.8 Allergy status to other drugs, medicaments and biological substances; Z91.040 Latex allergy status; Z79.82 Long term (current) use of aspirin; Z79.899 Other long term (current) drug therapy; Z79.84 Long term (current) use of oral hypoglycemic drugs; Z98.890 Other specified postprocedural states; Z68.41 Body mass index [BMI] 40.0-44.9, adult
CPT/HCPCS: 36415; 71045; 71275; 80048; 80053; 81001; 82962; 83735; 83880; 84484; 85025; 85379; 85610; 87086; 87088; 87186; 93005; 93306; 96372; 96374; 96375; 96376; 99285; A9270; G0378; J1642; J1650; J1940; J3475; Q9967; U0002; 93010

== ENCOUNTER 2021-01-01 23:05 | Emergency (ER) | payer MEDICARE, OTHER ==
[2021-01-01] MEDS ORDERED: Sodium Chloride 0.9% 10 ML Syringe FLUSH PRN (23:19)
[2021-01-01] MEDS ORDERED: Sodium Chloride 0.9% 2.5 ML Syringe FLUSH PRN (23:19)
--- NOTE | 2021-01-01 23:41 | CR ---
INDICATION: Shortness of breath TECHNIQUE: Chest radiograph 1 view COMPARISON: 10/24/2020 FINDINGS: Moderate degradation of image quality noted due to body habitus. Mediastinum: The mediastinum is normal in appearance. The heart silhouette is normal in size and morphology. Right Port-A-Cath is noted without interval change. Lung: There is a stable 5 mm nodular density in the left apex. Bilateral pulmonary hyperinflation and lucency noted, suggestive of moderate pulmonary emphysema. No sign of pleural effusion seen. No pneumothorax is identified. Bone and Soft tissue: Unremarkable for age. IMPRESSION: 1. There is a stable 5 mm nodular density in the left apex. Continued imaging surveillance is recommended. Dictated by Chris Anderson MD @ 01/01/2021 11:39:41 PM Dictated by: Chris Anderson MD @ 01/01/2021 23:39:45 (Electronically Signed)
[2021-01-02 00:02] LABS: BLOOD UREA NITROGEN,BUN 14 mg/dL (7.0-18.0); CARBON DIOXIDE,CO2 25.6 mmol/L (21.0-32.0); CHLORIDE,CL 104 mmol/L (98-107); GLUCOSE RANDOM 148 mg/dL (74-106); POTASSIUM,K 3.8 mmol/L (3.5-5.1); SODIUM,NA 137 mmol/L (136-145)
[2021-01-02] MEDS ORDERED: Iopamidol 755 MG/ML 500 ML Multipack Bottle IVPUSH STA (00:53)
[2021-01-02 00:54] VITALS: BP 157/68
--- NOTE | 2021-01-02 01:23 | CT ---
INDICATION: Shortness of breath TECHNIQUE: CT chest with i.v. contrast using pulmonary angiographic technique. Coronal and sagittal reformats were obtained. CONTRAST: 75 mL Isovue 370 COMPARISON: 10/24/2020 FINDINGS: Cardiovascular: The pulmonary arteries are unremarkable in enhancement with no evidence of acute pulmonary embolism. The heart has an unremarkable appearance and size. No sign of aneurysm in the thoracic aorta. A right Port-A-Cath is noted. Mediastinum: No mass or adenopathy seen. Lung: The subpleural nodules in the anterior left upper lobe have decreased in size, measuring up to 9 mm. The pulmonary nodules in the lingula and left lower lobe have also decreased in size and now measure 9 mm and 6 mm respectively. There is a stable 3 mm nodule in the anterior right lower lobe on image 85, series 402. On image 121, there is a 5 mm nodule in the anterior right lower lobe has decreased in size. Pleura and pericardium: No sign of pleural effusion seen. No significant pericardial effusion is present. Chest wall and axilla: No mass or adenopathy seen. Bone: Unremarkable for age. Upper abdomen: Unremarkable. IMPRESSION: 1. No evidence of pulmonary emboli seen. 2. Pulmonary nodules are present, many of which have decreased in size compared to prior examination and likely due to metastatic disease with therapeutic response. Correlation with medical history recommended. Dictated by Chris Anderson MD @ 01/02/2021 1:21:04 AM Please note that all CT scans at this facility use dose modulation, iterative reconstruction, and/or weight-based dosing when appropriate to reduce radiation dose to as low as reasonably achievable. Dictated by: Chris Anderson MD @ 01/02/2021 01:21:21 (Electronically Signed)
--- NOTE | 2021-01-02 01:53 | EDM.PDOC ---
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 Patient reports that she was sitting on her chair and started feeling short of breath. She reports that she spoke to her physician who told her to take an extra dose of Lasix. Patient reports that she was recently diagnosed with congestive heart failure and was started on Lasix 20 mg daily. She reports that she took an additional 20 mg at approximately 7 PM and not have any improvement in her symptoms so came to the ER for further evaluation. Patient denies any recent fevers, shakes, chills, nausea, vomiting, diarrhea, dysuria, frequency, urgency, chest pain, abdominal pain, pain rating to her jaw arm or back. Patient denies any change in her lower extremity edema. Patient denies any abdominal distention. Patient denies any URI symptoms or cough. Patient reports she has a chronic nonproductive hacking cough but that has not changed. Patient reports that she is scheduled for her chemotherapy tomorrow. Review of systems: As per history of present illness and below otherwise all systems reviewed and negative. Past medical history: As per history of present illness and as reviewed below otherwise noncontributory. Surgical history: As per history of present illness and as reviewed below otherwise noncontributory. Social history: No reported history of drug or alcohol abuse. Family history: As per history of present illness and as reviewed below otherwise noncontributory. Physical exam: This patient was seen and evaluated during the 2019 SARS-CoV-2 novel coronavirus pandemic period. Community viral transmission is ongoing at time of this encounter and the emergency department is operating under pandemic response procedures. Constitutional: Patient is oriented to person, place, and time. Appears well- developed and well-nourished. No distress. HEENT: Moist mucous membranes Head: Normocephalic and atraumatic Eyes: Right eye exhibits no discharge. Left eye exhibits no discharge. No scleral icterus Neck: Normal range of motion. No tracheal deviation present. Cardiovascular: Normal rate and regular rhythm. Regular rate and rhythm Pulmonary: Effort normal, no respiratory distress. No wheezing rales or rhonchi Abd: Soft, nondistended, no rebound/guarding, no psoas or obturator signs, no tenderness at Mcberney's point, no Mills's sign. Pt does not present with an exam that would be consistent with an acute surgical abdomen at this time Musculoskeletal: Normal range of motion, 1-2+ bipedal edema, no calf tenderness, no Homans' sign Neurologic: Alert and oriented to person, place and time. Skin: [place], warm and dry. Psychiatric: Normal mood and affect. Behavior is normal. Judgment and thought content normal. Nursing note and vital signs have been reviewed Diagnostics: CBC, CMP, D-dimer, BNP, CTA of chest, EKG CTA of chest reveals no acute pulmonary embolism. Pulmonary nodules are present, many of which have decreased in size compared to her prior examination and likely due to metastatic disease with therapeutic response. EKG: As interpreted by ER physician: Yoly: Nonspecific ST-T wave abnormalities Normal axis No evidence of ST elevation MS Sinus tachycardia heart rate of 105 D-dimer elevated BNP 214 Therapeutics: Patient was placed on 2 L nasal cannula upon arrival to the ED. Patient's pulse ox was 98% upon arrival however patient felt symptomatically improved with nasal cannula. Assessment and plan: 75-year-old female with a history significant for metastatic colorectal CA with metastatic disease to her lungs who presents ER today secondary to shortness of breath. Patient reports that she has been recently diagnosed with fluid in her lungs and was started on Lasix. Patient reports that after speaking to her physician she doubled her dose of Lasix today. Patient reports that her symptoms started approximately 4 PM. She reports that she took her Lasix approximately a 7 PM and since she did not feel better she came to the ED. Here in the ER the patient's pulse ox is 98 to 99%. Patient does not appear to be in any acute respiratory distress or discomfort. Patient's ER work-up is been unremarkable with labs that have been unremarkable. Patient CTA does not reveal anything acute. Patient's cardiac work-up is negative. Is unclear whether or not her symptoms may be secondary to congestive heart failure with volume overload and pulmonary edema that improved with the diuresis that she did at home. Patient reports that she has been urinating a lot since she took the pills. At this time, patient's pulse ox on room air is 99%. I have offered admission to the patient however at this time she reports that she feels much better and feels very comfortable to go home given that all her test results were negative. Patient does have chemotherapy scheduled for tomorrow and I have recommended that she keep her appointment and get her chemotherapy completed. I have also recommended the patient continue taking a double dose of her Lasix, 40 mg, daily until Friday. I have encouraged her to talk to her primary care physician to see if they would like her to continue that dose or they would like her to go back to her 20 mg daily thereafter. Reassessment at the time of disposition demonstrates that the patient is in no acute distress. The patient has remained stable throughout the entire ED visit and is without objective evidence for acute process requiring urgent intervention or hospitalization. The patient is stable for discharge, counseling is provided as documented above, discussed symptomatic treatment and specific conditions for return. I have spoken with the patient/caregiver and discussed todays findings, in addition to providing specific details for the plan of care. Questions are answered and there is agreement with the plan. Definitive disposition and diagnosis as appropriate pending reevaluation and review of above. chest Pain Score (Numeric/FACES): 2 - Related Data Allergies Allergy/AdvReac Type Severity Reaction Status Date / Time Latex, Natural Rubber Allergy Hives Verified 01/01/21 23:14 lisinopril Allergy Swelling Verified 01/01/21 23:14 Sulfa (Sulfonamide Allergy Hives Verified 01/01/21 23:14 Antibiotics) Home Meds: Home Meds Aspirin [Liberty Aspirin] 81 mg PO DAILY 05/28/14 [History] Losartan [Cozaar] 25 mg PO BEDTIME 05/28/14 [History] metFORMIN [Glucophage] 1,000 mg PO BID 05/28/14 [History] Latanoprost 1 drop EYEBOTH BEDTIME 04/24/20 [History] Furosemide [Lasix] 20 mg PO DAILY #15 tablet 10/25/20 [Rx] Past Medical History HEENT History: Reports: Other (See Below) Other HEENT History: wears glasses, top denture, lower partial Cardiovascular History: Reports: Hypertension Respiratory History: Reports: None Gastrointestinal History: Reports: Colon Polyp, Other (See Below) Other Gastrointestinal History: colorectal cancer with mets to liver Genitourinary History: Reports: UTI, Recurrent 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: Musculoskeletal History: Reports: Osteoarthritis Neurological History: Reports: None Psychiatric History: Reports: Depression Endocrine/Metabolic History: Reports: Diabetes, Type II, Obesity/BMI 30+ Hematologic History: Reports: Anemia, Blood Transfusion(s) Immunologic History: Reports: None Oncologic (Cancer) History: Reports: Colon, Liver Other Oncologic History: colorectal cancer with mets to liver Dermatologic History: Reports: None - Infectious Disease History Infectious Disease History: Reports: Chicken Pox, Measles, Mumps - Past Surgical History Head Surgeries/Procedures: Reports: None HEENT Surgical History: Reports: Tonsillectomy Cardiovascular Surgical History: Reports: None Respiratory Surgical History: Reports: None GI Surgical History: Reports: Appendectomy, Colon, Colonoscopy, EGD, Other (See Below) Other GI Surgeries/Procedures: laparoscopic hemicolectomy in [place] Jul 17 2020 Female Surgical History: Reports: Section, Hysterectomy Endocrine Surgical History: Reports: None Neurological Surgical History: Reports: None Musculoskeletal Surgical History: Reports: None Oncologic Surgical History: Reports: Other (See Below) Other Oncologic Surgeries/Procedures: laparoscopic rt hemicolectomy on Jul 17, 2020 Dermatological Surgical History: Reports: None Social & Family History - Family History Family Medical History: No Pertinent Family History - Tobacco Use Tobacco Use Status *Q: Unknown Ever Used Tobacco - Caffeine Use Caffeine Use: Reports: Coffee Caffeine Use Comment: "once in a while" ED ROS GENERAL - Review of Systems Review Of Systems: See Below ED EXAM, GENERAL - Physical Exam Exam: See Below Course - Vital Signs Last Recorded V/S: Last Vital Signs Temp 98.3 F 01/01/21 23:11 Pulse 96 01/02/21 00:53 Resp 21 H 01/02/21 00:53 BP 157/68 H 01/02/21 00:53 Pulse Ox 99 01/02/21 00:53 - Orders/Labs/Meds Orders: Active Orders 24 hr Category Date Time Status EKG Documentation Completion [RC] AM Care 01/01/21 23:19 Active Heparin Sodium [Heparin Lock Flush 100 Units/ML] Med 01/02/21 01:43 Active 500 units FLUSH ASDIRECTED PRN Sodium Chloride 0.9% [Saline Flush] Med 01/01/21 23:19 Active 10 ml FLUSH ASDIRECTED PRN Sodium Chloride 0.9% [Saline Flush] Med 01/01/21 23:19 Active 2.5 ml FLUSH ASDIRECTED PRN Saline Lock Insert [OM.PC] Stat Oth 01/01/21 23:19 Ordered Medication Orders Heparin Sodium (Porcine) (Heparin Sodium 100 Units/Ml 5 Ml Syringe) 500 units FLUSH ASDIRECTED PRN PRN Reason: DEACCESS PORT Sodium Chloride (Sodium Chloride 0.9% 10 Ml Syringe) 10 ml FLUSH ASDIRECTED PRN PRN Reason: Keep Vein Open Last Admin: 01/02/21 00:14 Dose: 10 ml Documented by: TESHA Sodium Chloride (Sodium Chloride 0.9% 2.5 Ml Syringe) 2.5 ml FLUSH ASDIRECTED PRN PRN Reason: Keep Vein Open Last Admin: 01/02/21 00:15 Dose: 2.5 ml Documented by: TESHA Labs: Laboratory Tests 01/01/21 01/01/21 01/01/21 Range/Units 23:25 23:25 23:25 WBC 6.53 (4.0-11.0) K/uL RBC 3.77 L (4.30-5.90) M/uL Hgb 11.3 L (12.0-16.0) g/dL Hct 36.0 (36.0-46.0) % MCV 95.5 (80.0-98.0) fL MCH 30.0 (27.0-32.0) pg MCHC 31.4 (31.0-37.0) g/dL RDW Std Deviation 71.1 H (28.0-62.0) fl RDW Coeff of Bret 20 H (11.0-15.0) % Plt Count 259 (150-400) K/uL MPV 9.30 (7.40-12.00) fL Add Manual Diff YES Neutrophils % (Manual) 14 L (48.0-80.0) % Band Neutrophils % 9 % Lymphocytes % (Manual) 60 H (16.0-40.0) % Monocytes % (Manual) 14 (0.0-15.0) % Eosinophils % (Manual) 1 (0.0-7.0) % Metamyelocytes % 2 % Nucleated RBC % 0.0 /100WBC Absolute Seg Neuts 0.9 L (1.4-5.7) Band Neutrophils # 0.6 Lymphocytes # (Manual) 3.9 H (0.6-2.4) Monocytes # (Manual) 0.9 H (0.0-0.8) Eosinophils # (Manual) 0.1 (0.0-0.7) Absolute Metamyelocyte 0.1 Nucleated RBCs # 0 K/uL INR D-Dimer, Quantitative (0.0-0.50) mg/L FEU Lactate 2.1 H* (0.20-2.00) mmol/L Sodium 137 (136-145) mmol/L Potassium 3.8 (3.5-5.1) mmol/L Chloride 104 (98-107) mmol/L Carbon Dioxide 25.6 (21.0-32.0) mmol/L BUN 14 (7.0-18.0) mg/dL Creatinine 1.0 (0.6-1.0) mg/dL Est Cr Clr Drug Dosing 44.80 mL/min Estimated GFR (MDRD) 53.9 ml/min Glucose 148 H (74-106) mg/dL Calcium 8.8 (8.5-10.1) mg/dL Total Bilirubin 0.4 (0.2-1.0) mg/dL AST 25 (15-37) IU/L ALT 16 (14-63) IU/L Alkaline Phosphatase 134 H (46-116) U/L Troponin I < 0.050 (0.000-0.056) ng/mL B-Natriuretic Peptide (<100) PG/ML Total Protein 7.5 (6.4-8.2) g/dL Albumin 2.9 L (3.4-5.0) g/dL Globulin 4.6 H (2.6-4.0) g/dL Albumin/Globulin Ratio 0.6 L (0.9-1.6) TSH 3rd Generation 3.13 (0.36-3.74) uIU/mL Urine Color Urine Appearance Urine pH (5.0-8.0) Ur Specific [place] (1.001-1.035) Urine Protein (NEGATIVE) mg/dL Urine Glucose (UA) (NEGATIVE) mg/dL Urine Ketones (NEGATIVE) mg/dL Urine Occult Blood (NEGATIVE) Urine Nitrite (NEGATIVE) Urine Bilirubin (NEGATIVE) Urine Urobilinogen (<2.0) EU/dL Ur Leukocyte Esterase (NEGATIVE) 01/01/21 01/01/21 01/01/21 Range/Units 23:25 23:35 23:50 WBC (4.0-11.0) K/uL RBC (4.30-5.90) M/uL Hgb (12.0-16.0) g/dL Hct (36.0-46.0) % MCV (80.0-98.0) fL MCH (27.0-32.0) pg MCHC (31.0-37.0) g/dL RDW Std Deviation (28.0-62.0) fl RDW Coeff of Bret (11.0-15.0) % Plt Count (150-400) K/uL MPV (7.40-12.00) fL Add Manual Diff Neutrophils % (Manual) (48.0-80.0) % Band Neutrophils % % Lymphocytes % (Manual) (16.0-40.0) % Monocytes % (Manual) (0.0-15.0) % Eosinophils % (Manual) (0.0-7.0) % Metamyelocytes % % Nucleated RBC % /100WBC Absolute Seg Neuts (1.4-5.7) Band Neutrophils # Lymphocytes # (Manual) (0.6-2.4) Monocytes # (Manual) (0.0-0.8) Eosinophils # (Manual) (0.0-0.7) Absolute Metamyelocyte Nucleated RBCs # K/uL INR 0.96 D-Dimer, Quantitative 6.94 H (0.0-0.50) mg/L FEU Lactate (0.20-2.00) mmol/L Sodium (136-145) mmol/L Potassium (3.5-5.1) mmol/L Chloride (98-107) mmol/L Carbon Dioxide (21.0-32.0) mmol/L BUN (7.0-18.0) mg/dL Creatinine (0.6-1.0) mg/dL Est Cr Clr Drug Dosing mL/min Estimated GFR (MDRD) ml/min Glucose (74-106) mg/dL Calcium (8.5-10.1) mg/dL Total Bilirubin (0.2-1.0) mg/dL AST (15-37) IU/L ALT (14-63) IU/L Alkaline Phosphatase (46-116) U/L Troponin I (0.000-0.056) ng/mL B-Natriuretic Peptide 214 H (<100) PG/ML Total Protein (6.4-8.2) g/dL Albumin (3.4-5.0) g/dL Globulin (2.6-4.0) g/dL Albumin/Globulin Ratio (0.9-1.6) TSH 3rd Generation (0.36-3.74) uIU/mL Urine Color YELLOW Urine Appearance CLEAR Urine pH 6.0 (5.0-8.0) Ur Specific [place] 1.010 (1.001-1.035) Urine Protein NEGATIVE (NEGATIVE) mg/dL Urine Glucose (UA) NEGATIVE (NEGATIVE) mg/dL Urine Ketones NEGATIVE (NEGATIVE) mg/dL Urine Occult Blood NEGATIVE (NEGATIVE) Urine Nitrite NEGATIVE (NEGATIVE) Urine Bilirubin NEGATIVE (NEGATIVE) Urine Urobilinogen 0.2 (<2.0) EU/dL Ur Leukocyte Esterase NEGATIVE (NEGATIVE) Meds: Medications Generic Name Dose Route Start Last Admin Trade Name Freq PRN Reason Stop Dose Admin Heparin Sodium (Porcine) 500 units 01/02/21 01:43 Heparin Sodium 100 Units/Ml 5 Ml Syringe FLUSH ASDIRECTED PRN DEACCESS PORT Sodium Chloride 10 ml 01/01/21 23:19 01/02/21 00:14 Sodium Chloride 0.9% 10 Ml Syringe FLUSH 10 ml ASDIRECTED PRN Administration Keep Vein Open Sodium Chloride 2.5 ml 01/01/21 23:19 01/02/21 00:15 Sodium Chloride 0.9% 2.5 Ml Syringe FLUSH 2.5 ml ASDIRECTED PRN Administration Keep Vein Open Discontinued Medications Generic Name Dose Route Start Last Admin Trade Name Freq PRN Reason Stop Dose Admin Iopamidol 75 ml 01/02/21 00:53 01/02/21 00:54 Iopamidol 755 Mg/Ml 500 Ml Multipack Bottle IVPUSH 01/02/21 00:54 75 ml ONETIME STA Administration Departure - Departure Time of Disposition: 01:53 Disposition: Home, Self-Care 01 Condition: Good Clinical Impression: Pulmonary edema, Congestive heart failure Dyspnea Qualifiers: Dyspnea type: dyspnea on exertion Qualified Code(s): R06.00 - Dyspnea, unspecified - Discharge Information Instructions: Shortness of Breath, Adult, [id number] Referrals: Blake Munoz MD [Primary Care Provider] - Additional Instructions: You were seen and evaluated in the ER today secondary to shortness of breath that occurred earlier today. I believe this is most likely secondary to increased volume of fluid in your lungs. Taking the extra dose of Lasix likely helped diurese that fluid and that is likely why you are feeling better in the ER at this time. The CT scan of your chest revealed pulmonary nodules that were present, many of which have decreased in size compared to prior examination and likely due to metastatic disease with good therapeutic response. Please continue taking the double dose of your Lasix until Friday. In the meantime, please contact your physician to see if they would like to continue you on the double dose or they would like you to return back to a single pill of Lasix daily. Please return to the ER if you start experiencing new or concerning symptoms or if you shortness of breath should return or worsen. The following information is given to patients seen in the emergency department who are being discharged to home. This information is to outline your options for follow-up care. We provide all patients seen in our emergency department with a follow-up referral. The need for follow-up, as well as the timing and circumstances, are variable depending upon the specifics of your emergency department visit. If you don't have a primary care physician on staff, we will provide you with a referral. We always advise you to contact your personal physician following an emergency department visit to inform them of the circumstance of the visit and for follow-up with them and/or the need for any referrals to a consulting specialist. The emergency department will also refer you to a specialist when appropriate. This referral assures that you have the opportunity for follow-up care with a specialist. All of these measure are taken in an effort to provide you with optimal care, which includes your follow-up. Under all circumstances we always encourage you to contact your private physician who remains a resource for coordinating your care. When calling for follow-up care, please make the office aware that this follow-up is from your recent emergency room visit. If for any reason you are refused follow-up, please contact the [facility] Emergency Department at and asked to speak to the emergency department charge nurse. [facility] - Primary Care [address] [place] [address] [facility] [address] [place] [address] Sepsis Event Note (ED) - Evaluation Sepsis Screening Result: No Definite Risk - Focused Exam Vital Signs: Vital Signs Temp Pulse Resp BP Pulse Ox 01/02/21 00:53 96 21 H 157/68 H 99 01/02/21 00:16 98 21 H 174/91 H 93 L 01/01/21 23:11 98.3 F 113 H 30 H 174/91 H 92 L - My Orders Last 24 Hours: My Active Orders 01/01/21 23:19 EKG Documentation Completion [RC] AM Sodium Chloride 0.9% [Saline Flush] 10 ml FLUSH ASDIRECTED PRN Sodium Chloride 0.9% [Saline Flush] 2.5 ml FLUSH ASDIRECTED PRN Saline Lock Insert [OM.PC] Stat 01/02/21 01:43 Heparin Sodium [Heparin Lock Flush 100 Units/ML] 500 units FLUSH ASDIRECTED PRN - Assessment/Plan Last 24 Hours: My Active Orders 01/01/21 23:19 EKG Documentation Completion [RC] AM Sodium Chloride 0.9% [Saline Flush] 10 ml FLUSH ASDIRECTED PRN Sodium Chloride 0.9% [Saline Flush] 2.5 ml FLUSH ASDIRECTED PRN Saline Lock Insert [OM.PC] Stat 01/02/21 01:43 Heparin Sodium [Heparin Lock Flush 100 Units/ML] 500 units FLUSH ASDIRECTED PRN
[2021-01-02 02:16] VITALS: PULSE 97
== END 2021-01-02 01:56 | disposition home or self-care (01) ==
LOC: MW.ED 23:05
DX: I11.0 Hypertensive heart disease with heart failure (principal); I50.1 Left ventricular failure, unspecified; E11.9 Type 2 diabetes mellitus without complications; E66.9 Obesity, unspecified; M19.90 Unspecified osteoarthritis, unspecified site; Z91.040 Latex allergy status; Z88.2 Allergy status to sulfonamides; Z88.8 Allergy status to other drugs, medicaments and biological substances; Z79.82 Long term (current) use of aspirin; Z79.84 Long term (current) use of oral hypoglycemic drugs; Z79.899 Other long term (current) drug therapy; Z68.41 Body mass index [BMI] 40.0-44.9, adult
CPT/HCPCS: 36415; 71045; 71275; 80053; 81003; 83605; 83880; 84443; 84484; 85025; 85379; 85610; 93005; 99285; J1642; Q9967; 93010; 99284

== ENCOUNTER 2021-02-16 09:28 | Emergency (ER) | payer MEDICARE, OTHER ==
[2021-02-16] MEDS ORDERED: Ibuprofen 600 MG Tab PO ONE (09:46)
--- NOTE | 2021-02-16 09:48 | EDM.PDOC ---
ED HPI GENERAL MEDICAL PROBLEM - General Chief Complaint: Upper Extremity Injury/Pain Stated Complaint: L ARM PAIN Time Seen by Provider: 02/16/21 09:45 - History of Present Illness INITIAL COMMENTS - FREE TEXT/NARRATIVE: HISTORY AND PHYSICAL: History of present illness: This is a 75-year-old female who presents ER today complaining of pain to her left wrist that started when she woke up. Patient reports that she had similar pain in the past. Patient denies any acute trauma or repetitive use recently. Patient currently is on chemotherapy. Patient denies any recent fevers, shakes, chills, nausea, vomiting, diarrhea, dysuria, frequency, urgency. Review of systems: As per history of present illness and below otherwise all systems reviewed and negative. Past medical history: As per history of present illness and as reviewed below otherwise noncontributory. Surgical history: As per history of present illness and as reviewed below otherwise noncontributory. Social history: No reported history of drug abuse. Family history: As per history of present illness and as reviewed below otherwise noncontributory. Physical exam: This patient was seen and evaluated during the 2019 SARS-CoV-2 novel coronavirus pandemic period. Community viral transmission is ongoing at time of this encounter and the emergency department is operating under pandemic response procedures. Constitutional: Patient is oriented to person, place, and time. Appears well- developed and well-nourished. No distress. HEENT: Moist mucous membranes Head: Normocephalic and atraumatic Eyes: Right eye exhibits no discharge. Left eye exhibits no discharge. No scleral icterus Neck: Normal range of motion. No tracheal deviation present. Cardiovascular: Normal rate and regular rhythm. Pulmonary: Effort normal, no respiratory distress. Abdominal: No distention Musculoskeletal: Normal range of motion Neurologic: Alert and oriented to person, place and time. Skin: [place], warm and dry. Psychiatric: Normal mood and affect. Behavior is normal. Judgment and thought content normal. Nursing note and vital signs have been reviewed Patient's ER physical exam is significant for tenderness palpation to her left wrist. Patient has no significant warmth, edema, deformity to her wrist. Patient is neurovascular intact. Patient has good pulses distally. Diagnostics: X-ray of left wrist: No acute fracture or dislocation. Therapeutics: DME note: Left wrist Velcro splint applied: This is applied to assist with ligamentous injury and healing of ligament within the wrist. This will need to stay in place for 7 days. Assessment and plan: 75-year-old who presents ER today with pain to her left wrist. Patient have an x-ray obtained. Patient be placed in a resplinted and started on ibuprofen. X-rays negative for fracture. Patient will be placed in a Velcro wrist splint and discharged home with ibuprofen. Reassessment at the time of disposition demonstrates that the patient is in no acute distress. The patient has remained stable throughout the entire ED visit and is without objective evidence for acute process requiring urgent intervention or hospitalization. The patient is stable for discharge, counseling is provided as documented above, discussed symptomatic treatment and specific conditions for return. I have spoken with the patient/caregiver and discussed todays findings, in addition to providing specific details for the plan of care. Questions are answered and there is agreement with the plan. Definitive disposition and diagnosis as appropriate pending reevaluation and review of above. Left wrist Pain Score (Numeric/FACES): 9 - Related Data Allergies Allergy/AdvReac Type Severity Reaction Status Date / Time Latex, Natural Rubber Allergy Hives Verified 02/16/21 09:44 lisinopril Allergy Swelling Verified 02/16/21 09:44 Sulfa (Sulfonamide Allergy Hives Verified 02/16/21 09:44 Antibiotics) Home Meds: Home Meds Aspirin [[place] Aspirin] 81 mg PO DAILY 05/28/14 [History] Losartan [Cozaar] 25 mg PO BEDTIME 05/28/14 [History] metFORMIN [Glucophage] 1,000 mg PO BID 05/28/14 [History] Furosemide [Lasix] 40 mg PO DAILY 02/16/21 [History] Ibuprofen 600 mg PO Q6HR PRN #30 tablet 02/16/21 [Rx] Past Medical History HEENT History: Reports: Other (See Below) Other HEENT History: wears glasses, top denture, lower partial Cardiovascular History: Reports: Hypertension Respiratory History: Reports: None Gastrointestinal History: Reports: Colon Polyp, Other (See Below) Other Gastrointestinal History: colorectal cancer with mets to liver Genitourinary History: Reports: UTI, Recurrent [employer] History: Reports: Musculoskeletal History: Reports: Osteoarthritis Neurological History: Reports: None Psychiatric History: Reports: Depression Endocrine/Metabolic History: Reports: Diabetes, Type II, Obesity/BMI 30+ Hematologic History: Reports: Anemia, Blood Transfusion(s) Immunologic History: Reports: None Oncologic (Cancer) History: Reports: Colon, Liver Other Oncologic History: colorectal cancer with mets to liver Dermatologic History: Reports: None - Infectious Disease History Infectious Disease History: Reports: Chicken Pox, Measles, Mumps - Past Surgical History Head Surgeries/Procedures: Reports: None HEENT Surgical History: Reports: Tonsillectomy Cardiovascular Surgical History: Reports: None Respiratory Surgical History: Reports: None GI Surgical History: Reports: Appendectomy, Colon, Colonoscopy, EGD, Other (See Below) Other GI Surgeries/Procedures: laparoscopic hemicolectomy in [place] Jul 17 2020 Female Surgical History: Reports: Section, Hysterectomy Endocrine Surgical History: Reports: None Neurological Surgical History: Reports: None Musculoskeletal Surgical History: Reports: None Oncologic Surgical History: Reports: Other (See Below) Other Oncologic Surgeries/Procedures: laparoscopic rt hemicolectomy on Jul 17, 2020 Dermatological Surgical History: Reports: None Social & Family History - Family History Family Medical History: No Pertinent Family History - Caffeine Use Caffeine Use: Reports: Coffee Caffeine Use Comment: "once in a while" Review of Systems - Review of Systems Review Of Systems: See Below ED EXAM, GENERAL - Physical Exam Exam: See Below Course - Vital Signs Last Recorded V/S: Last Vital Signs Temp 97.6 F 02/16/21 09:45 Pulse 81 02/16/21 09:45 Resp 16 02/16/21 09:45 BP 117/71 02/16/21 09:45 Pulse Ox 97 02/16/21 09:45 - Orders/Labs/Meds Orders: Active Orders 24 hr Category Date Time Status Wrist Comp Min 3V Lt [CR] Stat Exams 02/16/21 09:46 Taken DME for Discharge [COMM] Stat Oth 02/16/21 09:46 Ordered Meds: Medications Discontinued Medications Generic Name Dose Route Start Last Admin Trade Name Freq PRN Reason Stop Dose Admin Ibuprofen 600 mg 02/16/21 09:46 02/16/21 10:06 Ibuprofen 600 Mg Tab PO 02/16/21 09:47 600 mg ONETIME ONE Administration Departure - Departure Time of Disposition: 10:20 Disposition: Home, Self-Care 01 Condition: Good Clinical Impression: Acute pain of left wrist - Discharge Information Instructions: Wrist Pain, Adult, Carpal Tunnel Syndrome, [id number] Referrals: Blake Munoz MD [Primary Care Provider] - Forms: ED Department Discharge Additional Instructions: You were seen and evaluated in the ER today secondary to pain in your left wrist. This is possibly secondary to ligamentous injury/carpal tunnel syndrome. You will be placed in a Velcro wrist splint to assist with healing and will be started on ibuprofen to help with your pain and discomfort. Please make an appointment to see your family doctor within the week. The following information is given to patients seen in the emergency department who are being discharged to home. This information is to outline your options for follow-up care. We provide all patients seen in our emergency department with a follow-up referral. The need for follow-up, as well as the timing and circumstances, are variable depending upon the specifics of your emergency department visit. If you don't have a primary care physician on staff, we will provide you with a referral. We always advise you to contact your personal physician following an emergency department visit to inform them of the circumstance of the visit and for follow-up with them and/or the need for any referrals to a consulting specialist. The emergency department will also refer you to a specialist when appropriate. This referral assures that you have the opportunity for follow-up care with a specialist. All of these measure are taken in an effort to provide you with opt imal care, which includes your follow-up. Under all circumstances we always encourage you to contact your private physician who remains a resource for coordinating your care. When calling for follow-up care, please make the office aware that this follow-up is from your recent emergency room visit. If for any reason you are refused follow-up, please contact the [facility] Department at and asked to speak to the emergency department charge nurse. [facility] [address] [place] [id number] [address] Sepsis Event Note (ED) - Focused Exam Vital Signs: Vital Signs Temp Pulse Resp BP Pulse Ox 02/16/21 09:45 97.6 F 81 16 117/71 97 - My Orders Last 24 Hours: My Active Orders 02/16/21 09:46 Wrist Comp Min 3V Lt [CR] Stat DME for Discharge [COMM] Stat - Assessment/Plan Last 24 Hours: My Active Orders 02/16/21 09:46 Wrist Comp Min 3V Lt [CR] Stat DME for Discharge [COMM] Stat
--- NOTE | 2021-02-16 10:25 | CR ---
For Patients: As a result of the Cures Act, medical imaging exams and procedure reports are released immediately into your electronic medical record. You may view this report before your referring provider. If you have questions, please contact your health care provider. INDICATION: Left wrist pain. TECHNIQUE: Three views of the left wrist. COMPARISON: None. FINDINGS: No obvious soft tissue swelling. No fracture or subluxation. Moderate triscaphe joint osteoarthritis. No erosive change or chondrocalcinosis. IMPRESSION: Unremarkable except for moderate triscaphe joint osteoarthritis. Dictated by David Townsend MD @ 02/16/2021 10:24:[address] David Townsend @ Feb 16 2021 10:24AM
[2021-02-16 10:38] VITALS: BP 105/71; PULSE 75
== END 2021-02-16 10:38 | disposition home or self-care (01) ==
LOC: MW.ED 09:28
DX: M25.532 Pain in left wrist (principal); I10 Essential (primary) hypertension; M19.90 Unspecified osteoarthritis, unspecified site; E11.9 Type 2 diabetes mellitus without complications; E66.9 Obesity, unspecified; Z68.39 Body mass index [BMI] 39.0-39.9, adult; Z91.040 Latex allergy status; Z88.2 Allergy status to sulfonamides; Z88.8 Allergy status to other drugs, medicaments and biological substances; Z79.82 Long term (current) use of aspirin; Z79.84 Long term (current) use of oral hypoglycemic drugs; Z79.899 Other long term (current) drug therapy
CPT/HCPCS: 73110; 99283; A9270; 99282

== ENCOUNTER 2021-08-20 22:56 | Emergency (ER) | payer MEDICARE, OTHER ==
[2021-08-20] MEDS ORDERED: Ondansetron 4 MG/2 ML SDV IVPUSH ONE (23:10)
[2021-08-20] MEDS ORDERED: Dextrose 5%-Lactated Ringers 1,000 ML IV SCH (23:15)
[2021-08-21 00:11] LABS: BLOOD UREA NITROGEN,BUN 16 mg/dL (7.0-18.0); CARBON DIOXIDE,CO2 26.4 mmol/L (21.0-32.0); CHLORIDE,CL 97 mmol/L (98-107); GLUCOSE RANDOM 110 mg/dL (74-106); POTASSIUM,K 3.4 mmol/L (3.5-5.1); SODIUM,NA 133 mmol/L (136-145)
[2021-08-21] MEDS ORDERED: Potassium Chloride 10% 20 MEQ/15 ML Soln 30 ML UD Cup PO ONE (00:15)
[2021-08-21] MEDS ORDERED: Magnesium Sulfate/Water 2 GM in Premix Bag 1 BAG IV ONE (00:15)
--- NOTE | 2021-08-21 00:30 | EDM.PDOC ---
ED HPI GENERAL MEDICAL PROBLEM - General Chief Complaint: Gastrointestinal Problem Stated Complaint: NAUSEA Time Seen by Provider: 08/20/21 23:11 - History of Present Illness INITIAL COMMENTS - FREE TEXT/NARRATIVE: CHIEF COMPLAINT(S): Nausea and vomiting HISTORY OF PRESENT ILLNESS: This is a 76-year-old woman with a past medical history of colorectal cancer on maintenance chemotherapy, hypertension, obesity, diabetes mellitus who comes to the emergency department with a chief complaint of nausea and vomiting. The patient states that for the last 1 to 2 days she has been experiencing nausea and vomiting. She states that her vomiting is clear however every time she takes a drink of water she seems to throw it up. She denies any abdominal pain, chest pain, shortness of breath, fever or chills. She states that she does not believe this is secondary to her chemotherapy as she usually has the symptoms immediately after and this was delayed. She denies any blurry vision, headache, neck stiffness or neck pain. She denies any hematemesis, bilious emesis, melena or hematochezia. She denies any diarrhea or constipation. REVIEW OF SYSTEMS: Constitutional: Denies fever, chills. Eyes: Denies eye pain Ears, Nose, Mouth, & Throat: Denies earache Cardiovascular: Denies chest pain Respiratory: Denies shortness of breath Gastrointestinal: Positive for nausea and vomiting. Denies diarrhea, medic easier, melena, hematemesis, bilious emesis, abdominal pain Genitourinary: Denies hematuria dysuria, vaginal bleeding, vaginal discharge Skin:Denies a rash MSK: Denies joint pain Neurological: Denies blurred vision, headache, numbness, tingling, weakness Psychiatric: Denies depression PAST MEDICAL HISTORY: As per history of present illness and as reviewed below otherwise noncontributory. SURGICAL HISTORY: As per history of present illness and as reviewed below otherwise noncontributory. SOCIAL HISTORY: As per history of present illness and as reviewed below otherwise noncontributory. FAMILY HISTORY: As per history of present illness and as reviewed below otherwise noncontributory. EXAMINATION OF ORGAN SYSTEMS/BODY AREAS: Constitutional: Blood pressure is 110/59, heart rate 82, respiratory rate 18 with an oxygen saturation 95% on room air. Temperature 37.1 General: Well-appearing elderly woman who is in no acute distress Psychiatric: Appropriate mood and affect. Eyes: No scleral icterus or conjunctival erythema ENMT: Moist mucous membranes. No pharyngeal erythema Cardiovascular: Regular, rate, and rhythm. No gallops, murmurs, or rubs. Bilateral upper extremity pulses symmetric and intact. No peripheral edema. No JVD. Respiratory: Lungs clear to auscultation bilaterally. No wheezes, rales, or rhonchi. Gastrointestinal: Soft, non-tender, non-distended. Normoactive bowel sounds Genitourinary: No suprapubic tenderness Musculoskeletal: Normal range of motion. Skin: No lesions or abrasions. Neurological: Alert, GCS 15 MEDICAL DECISION MAKING AND COURSE IN THE ED WITH INTERPRETATION/REVIEW OF DIAGNOSTIC STUDIES: This is a 76-year-old woman with a past medical history of colorectal cancer on maintenance chemotherapy, diabetes mellitus and hypertension who comes to the emergency department with isolated nausea and vomiting without any evidence of pain or abnormality on examination. At this time the patient's vitals are completely normal. We will provide the patient with 1 L of D5 LR given her vomiting for rehydration we will also provide the patient with 4 mg of IV Zofran for nausea relief. We did obtain a screening EKG for atypical ACS which was unremarkable. Will obtain labs including CBC, CMP, troponin. Obtain a Covid flu and RSV swab. I do believe this is likely secondary to a chemotherapy however we will monitor the patient for p.o. toleration. She was amenable to this plan DDx: Atypical ACS, chemotherapy-induced nausea and vomiting, gastroenteritis Laboratory: CBC reveals a normocytic anemia with a hemoglobin of 11.6 and hematocrit of 35.4. CMP reveals hyponatremia at 133, hypokalemia 3.4, hypochloremia at 97, hyperglycemia at 110 hypomagnesemia at 1.5, hyperbilirubinemia with a total bilirubin of 1.2 troponin is negative. Covid, flu, RSV negative. After labs I did provide the patient with potassium and magnesium supplementation. At the time of my reevaluation the patient was tolerating p.o. without any difficulty. The patient continued to remain stable without any further nausea or vomiting. I did discuss with her the use of her home medication for nausea. She was given strict return precautions. The patient was amenable to discharge and had no further questions. DISPOSITION: The patient was discharged home in stable condition. The patient will follow up with primary care physician in 3 to 5 days CONDITION: Fair PROCEDURES: None FINAL IMPRESSION(S)/DIAGNOSES: 1. Acute nausea Ady Aguilera M.D. - Related Data Allergies Allergy/AdvReac Type Severity Reaction Status Date / Time Latex, Natural Rubber Allergy Hives Verified 08/20/21 23:16 lisinopril Allergy Swelling Verified 08/20/21 23:16 Sulfa (Sulfonamide Allergy Hives Verified 08/20/21 23:16 Antibiotics) Home Meds: Home Meds Aspirin [[place] Aspirin] 81 mg PO DAILY 05/28/14 [History] Losartan [Cozaar] 25 mg PO BEDTIME 05/28/14 [History] metFORMIN [Glucophage] 1,000 mg PO BID 05/28/14 [History] Furosemide [Lasix] 40 mg PO DAILY 02/16/21 [History] Ibuprofen 600 mg PO Q6HR PRN #30 tablet 02/16/21 [Rx] Past Medical History HEENT History: Reports: Other (See Below) Other HEENT History: wears glasses, top denture, lower partial Cardiovascular History: Reports: Hypertension Respiratory History: Reports: None Gastrointestinal History: Reports: Colon Polyp, Other (See Below) Other Gastrointestinal History: colorectal cancer with mets to liver Genitourinary History: Reports: UTI, Recurrent [employer] History: Reports: Musculoskeletal History: Reports: Osteoarthritis Neurological History: Reports: None Psychiatric History: Reports: Depression Endocrine/Metabolic History: Reports: Diabetes, Type II, Obesity/BMI 30+ Hematologic History: Reports: Anemia, Blood Transfusion(s) Immunologic History: Reports: None Oncologic (Cancer) History: Reports: Colon, Liver Other Oncologic History: colorectal cancer with mets to liver Dermatologic History: Reports: None - Infectious Disease History Infectious Disease History: Reports: Chicken Pox, Measles, Mumps - Past Surgical History Head Surgeries/Procedures: Reports: None HEENT Surgical History: Reports: Tonsillectomy Cardiovascular Surgical History: Reports: None Respiratory Surgical History: Reports: None GI Surgical History: Reports: Appendectomy, Colon, Colonoscopy, EGD, Other (See Below) Other GI Surgeries/Procedures: laparoscopic hemicolectomy in [place] Jul 17 2020 Female Surgical History: Reports: Section, Hysterectomy Endocrine Surgical History: Reports: None Neurological Surgical History: Reports: None Musculoskeletal Surgical History: Reports: None Oncologic Surgical History: Reports: Other (See Below) Other Oncologic Surgeries/Procedures: laparoscopic rt hemicolectomy on Jul 17, 2020 Dermatological Surgical History: Reports: None Social & Family History - Family History Family Medical History: No Pertinent Family History - Tobacco Use Tobacco Use Status *Q: Never Tobacco User Second Hand Smoke Exposure: No - Caffeine Use Caffeine Use: Reports: None Caffeine Use Comment: "once in a while" - Recreational Drug Use Recreational Drug Use: No ED ROS GENERAL - Review of Systems Review Of Systems: See Below ED EXAM, GENERAL - Physical Exam Exam: See Below Course - Vital Signs Last Recorded V/S: Last Vital Signs Temp 37.1 C 08/20/21 22:57 Pulse 67 08/21/21 02:40 Resp 18 08/21/21 02:40 BP 103/53 L 08/21/21 02:40 Pulse Ox 97 08/21/21 02:40 - Orders/Labs/Meds Labs: Laboratory Tests 08/20/21 08/20/21 08/20/21 Range/Units 23:02 23:08 23:08 WBC 5.47 (4.0-11.0) K/uL RBC 3.84 L (4.30-5.90) M/uL Hgb 11.6 L (12.0-16.0) g/dL Hct 35.4 L (36.0-46.0) % MCV 92.2 (80.0-98.0) fL MCH 30.2 (27.0-32.0) pg MCHC 32.8 (31.0-37.0) g/dL RDW Std Deviation 60.4 (28.0-62.0) fl RDW Coeff of Bret 18 H (11.0-15.0) % Plt Count 173 (150-400) K/uL MPV 9.50 (7.40-12.00) fL Neut % (Auto) 38.2 L (48.0-80.0) % Lymph % (Auto) 51.2 H (16.0-40.0) % Wharton % (Auto) 6.9 (0.0-15.0) % Eos % (Auto) 2.6 (0.0-7.0) % Baso % (Auto) 1.1 (0.0-1.5) % Neut # (Auto) 2.1 (1.4-5.7) K/uL Lymph # (Auto) 2.8 H (0.6-2.4) K/uL Wharton # (Auto) 0.4 (0.0-0.8) K/uL Eos # (Auto) 0.1 (0.0-0.7) K/uL Baso # (Auto) 0.1 (0.0-0.1) K/uL Nucleated RBC % 0.0 /100WBC Nucleated RBCs # 0 K/uL Sodium 133 L (136-145) mmol/L Potassium 3.4 L (3.5-5.1) mmol/L Chloride 97 L (98-107) mmol/L Carbon Dioxide 26.4 (21.0-32.0) mmol/L BUN 16 (7.0-18.0) mg/dL Creatinine 1.0 (0.6-1.0) mg/dL Est Cr Clr Drug Dosing 44.10 mL/min Estimated GFR (MDRD) 53.8 ml/min Glucose 110 H (74-106) mg/dL POC Glucose 106 H (70-99) mg/dL Calcium 8.6 (8.5-10.1) mg/dL Magnesium 1.5 L (1.8-2.4) mg/dL Total Bilirubin 1.2 H (0.2-1.0) mg/dL AST 26 (15-37) IU/L ALT 19 (14-63) IU/L Alkaline Phosphatase 77 (46-116) U/L Troponin I < 0.050 (0.000-0.056) ng/mL Total Protein 7.4 (6.4-8.2) g/dL Albumin 2.8 L (3.4-5.0) g/dL Globulin 4.6 H (2.6-4.0) g/dL Albumin/Globulin Ratio 0.6 L (0.9-1.6) Influenza Type A RNA (NEGATIVE) Influenza Type B RNA (NEGATIVE) SARS-CoV-2 RNA (CHRISTINE) (NEGATIVE) 08/21/21 Range/Units 00:24 WBC (4.0-11.0) K/uL RBC (4.30-5.90) M/uL Hgb (12.0-16.0) g/dL Hct (36.0-46.0) % MCV (80.0-98.0) fL MCH (27.0-32.0) pg MCHC (31.0-37.0) g/dL RDW Std Deviation (28.0-62.0) fl RDW Coeff of Bret (11.0-15.0) % Plt Count (150-400) K/uL MPV (7.40-12.00) fL Neut % (Auto) (48.0-80.0) % Lymph % (Auto) (16.0-40.0) % Wharton % (Auto) (0.0-15.0) % Eos % (Auto) (0.0-7.0) % Baso % (Auto) (0.0-1.5) % Neut # (Auto) (1.4-5.7) K/uL Lymph # (Auto) (0.6-2.4) K/uL Wharton # (Auto) (0.0-0.8) K/uL Eos # (Auto) (0.0-0.7) K/uL Baso # (Auto) (0.0-0.1) K/uL Nucleated RBC % /100WBC Nucleated RBCs # K/uL Sodium (136-145) mmol/L Potassium (3.5-5.1) mmol/L Chloride (98-107) mmol/L Carbon Dioxide (21.0-32.0) mmol/L BUN (7.0-18.0) mg/dL Creatinine (0.6-1.0) mg/dL Est Cr Clr Drug Dosing mL/min Estimated GFR (MDRD) ml/min Glucose (74-106) mg/dL POC Glucose (70-99) mg/dL Calcium (8.5-10.1) mg/dL Magnesium (1.8-2.4) mg/dL Total Bilirubin (0.2-1.0) mg/dL AST (15-37) IU/L ALT (14-63) IU/L Alkaline Phosphatase (46-116) U/L Troponin I (0.000-0.056) ng/mL Total Protein (6.4-8.2) g/dL Albumin (3.4-5.0) g/dL Globulin (2.6-4.0) g/dL Albumin/Globulin Ratio (0.9-1.6) Influenza Type A RNA NEGATIVE (NEGATIVE) Influenza Type B RNA NEGATIVE (NEGATIVE) SARS-CoV-2 RNA (CHRISTINE) NEGATIVE (NEGATIVE) Meds: Medications Discontinued Medications Generic Name Dose Route Start Last Admin Trade Name Malika PRN Reason Stop Dose Admin Dextrose/Lactated Ringer's 1,000 mls @ 999 mls/hr 08/20/21 23:15 08/20/21 23:24 Dextrose 5%-Lactated Ringers IV 999 mls/hr ASDIRECTED MARK Administration Magnesium Sulfate 2 gm/ Premix 50 mls @ 12.5 mls/hr 08/21/21 00:15 08/21/21 00:26 IV 08/21/21 04:14 12.5 mls/hr ONETIME ONE Administration Ondansetron HCl 4 mg 08/20/21 23:10 08/20/21 23:24 Ondansetron 4 Mg/2 Ml Sdv IVPUSH 08/20/21 23:11 4 mg ONETIME ONE Administration Potassium Chloride 40 meq 08/21/21 00:15 08/21/21 00:25 Potassium Chloride 10% 20 Meq/15 Ml Soln 30 Ml Ud Cup PO 08/21/21 00:16 40 meq ONETIME ONE Administration Departure - Departure Time of Disposition: 01:34 Disposition: Home, Self-Care 01 Condition: Fair Clinical Impression: Vomiting - Discharge Information *PRESCRIPTION DRUG MONITORING PROGRAM REVIEWED*: No *COPY OF PRESCRIPTION DRUG MONITORING REPORT IN PATIENT NADIA: No Instructions: Dehydration, Adult, [id number], Nausea and Vomiting, Adult Referrals: Blake Munoz MD [Primary Care Provider] - Forms: ED Department Discharge Additional Instructions: Your evaluated today on an emergent basis. Other than some low potassium and magnesium your labs were essentially normal. You were able to tolerate fluids by mouth. Your Covid and influenza were negative. At this time I recommend you continue to use your Zofran as prescribed for nausea. If you have any worsening symptoms such as chest pain, inability to eat or drink, or you are concerned I would like you to return to the emergency department. Please follow-up with primary care physician in 3 to 5 days [facility] [address] [place] [id number] [address] [place] [address] The patient is informed of any results of their evaluation and diagnostic workup and all questions are answered. They are given discharge instructions and return precautions. The patient is stable for discharge. The patient states they understand and agree with the plan and that they will return if their symptoms get worse or if they have any new concerns. The following information is given to patients seen in the emergency department who are being discharged to home. This information is to outline your options for follow-up care. We provide all patients seen in our emergency department with a follow-up referral. The need for follow-up, as well as the timing and circumstances, are variable depending upon the specifics of your emergency department visit. If you don't have a primary care physician on staff, we will provide you with a referral. We always advise you to contact your personal physician following an emergency department visit to inform them of the circumstance of the visit and for follow-up with them and/or the need for any referrals to a consulting specialist. The emergency department will also refer you to a specialist when appropriate. This referral assures that you have the opportunity for follow-up care with a specialist. All of these measure are taken in an effort to provide you with optimal care, which includes your follow-up. Under all circumstances we always encourage you to contact your private physician who remains a resource for coordinating your care. When calling for follow-up care, please make the office aware that this follow-up is from your recent emergency room visit. If for any reason you are refused follow-up, please contact the [facility] Emergency Department at and asked to speak to the emergency department charge nurse. Sepsis Event Note (ED) - Evaluation Sepsis Screening Result: No Definite Risk
--- NOTE | 2021-08-21 01:08 | PCM.EKG ---
#1 Interpretation EKG Date: 08/21/21 Time: 00:23 Rhythm: NSR Rate (Beats/Min): 72 [place]: Normal P-Wave: Present QRS: Normal ST-T: Normal QT: Normal Comparison: No Change (01/01/21) EKG Interpretation Comments: Sinus Rhythm
[2021-08-21 01:10] LABS: CORONAVIRUS COVID-19 NAA NEGATIVE (NEGATIVE); INFLUENZA A NAA NEGATIVE (NEGATIVE); INFLUENZA B NAA NEGATIVE (NEGATIVE)
[2021-08-21 06:17] VITALS: BP 103/53; PULSE 67
== END 2021-08-21 02:45 | disposition home or self-care (01) ==
LOC: MW.ED 22:56
DX: R11.2 Nausea with vomiting, unspecified (principal); I10 Essential (primary) hypertension; E66.9 Obesity, unspecified; E11.9 Type 2 diabetes mellitus without complications; M19.90 Unspecified osteoarthritis, unspecified site; Z68.30 Body mass index [BMI] 30.0-30.9, adult; Z91.040 Latex allergy status; Z88.2 Allergy status to sulfonamides; Z88.8 Allergy status to other drugs, medicaments and biological substances; Z79.82 Long term (current) use of aspirin; Z79.899 Other long term (current) drug therapy; Z79.84 Long term (current) use of oral hypoglycemic drugs; Z20.822 Contact with and (suspected) exposure to COVID-19
CPT/HCPCS: 0240U; 36415; 80053; 82947; 83735; 84484; 85025; 93005; 96365; 96366; 96375; 99284; A9270; J2405; J3475; J7121

== ENCOUNTER 2021-10-08 08:25 | Emergency (ER) | payer MEDICARE, OTHER ==
[2021-10-08] MEDS ORDERED: Sodium Chloride 0.9% 2.5 ML Syringe FLUSH PRN (08:39)
[2021-10-08] MEDS ORDERED: Sodium Chloride 0.9% 10 ML Syringe FLUSH PRN (08:39)
[2021-10-08] MEDS ORDERED: EPINEPHrine 1:10,000 1 MG/10 ML Syringe ONE (08:45)
[2021-10-08] MEDS ORDERED: Lactated Ringers 1,000 ML IV STA ×2 (08:50)
[2021-10-08 09:34] LABS: BLOOD UREA NITROGEN,BUN 18 mg/dL (7.0-18.0); CARBON DIOXIDE,CO2 16.1 mmol/L (21.0-32.0); CHLORIDE,CL 108 mmol/L (98-107); GLUCOSE RANDOM 158 mg/dL (74-106); LIPASE 67 U/L (73-393); POTASSIUM,K 4.4 mmol/L (3.5-5.1); SODIUM,NA 142 mmol/L (136-145)
[2021-10-08] MEDS ORDERED: fentaNYL 50 MCG/ML SDV ONE (09:50)
[2021-10-08] MEDS ORDERED: LORazepam 2 MG/ML SDV IVPUSH STA (10:00)
[2021-10-08] MEDS ORDERED: LORazepam 2 MG/ML SDV ONE (10:06)
[2021-10-08] MEDS ORDERED: fentaNYL 100 MCG/2 ML SDV IVPUSH STA (19:14)
[2021-10-08] MEDS ORDERED: EPINEPHrine 1:10,000 1 MG/10 ML Syringe IVPUSH ONE (19:14)
[2021-10-08] MEDS ORDERED: LORazepam 2 MG/ML SDV IVPUSH ONE ×2 (19:15)
[2021-10-08 20:36] VITALS: PULSE 113
[2021-10-08 20:37] VITALS: BP 101/63
[2021-10-08] MEDS ORDERED: Sodium Chloride 0.9% 1,000 ML IV STA (20:42)
== END 2021-10-08 10:44 ==
LOC: MW.ED 08:25
DX: I46.9 Cardiac arrest, cause unspecified (principal); I83.891 Varicose veins of right lower extremity with other complications; I45.2 Bifascicular block; I10 Essential (primary) hypertension; M19.90 Unspecified osteoarthritis, unspecified site; E66.9 Obesity, unspecified; E11.9 Type 2 diabetes mellitus without complications; Z68.30 Body mass index [BMI] 30.0-30.9, adult; Z91.040 Latex allergy status; Z88.2 Allergy status to sulfonamides; Z88.8 Allergy status to other drugs, medicaments and biological substances; Z79.82 Long term (current) use of aspirin; Z79.899 Other long term (current) drug therapy; Z79.84 Long term (current) use of oral hypoglycemic drugs; Z20.822 Contact with and (suspected) exposure to COVID-19
CPT/HCPCS: 36415; 36430; 36600; 51702; 71045; 80053; 80305; 80307; 82803; 83690; 83735; 84443; 84484; 85025; 85610; 85730; 86850; 86900; 86901; 86920; 92950; 93005; 96365; 96375; 99285; J0171; J2060; J3010; J7030; J7120; P9016; U0002

== ENCOUNTER 2021-11-06 09:38 | Emergency (ER) | payer MEDICARE, OTHER ==
[2021-11-06] MEDS ORDERED: Clindamycin HCl 150 MG Cap PO ONE (10:12)
[2021-11-06] MEDS ORDERED: Ciprofloxacin 500 MG Tab PO ONE (10:12)
[2021-11-06 11:12] LABS: BLOOD UREA NITROGEN,BUN 10 mg/dL (7.0-18.0); CARBON DIOXIDE,CO2 24.7 mmol/L (21.0-32.0); CHLORIDE,CL 105 mmol/L (98-107); GLUCOSE RANDOM 108 mg/dL (74-106); POTASSIUM,K 4.1 mmol/L (3.5-5.1); SODIUM,NA 141 mmol/L (136-145)
[2021-11-06 11:47] VITALS: BP 145/72; PULSE 89
== END 2021-11-06 10:55 | disposition home or self-care (01) ==
LOC: MW.ED 09:38
DX: E11.621 Type 2 diabetes mellitus with foot ulcer (principal); L97.511 Non-pressure chronic ulcer of other part of right foot limited to breakdown of skin; L03.115 Cellulitis of right lower limb; I10 Essential (primary) hypertension; E11.9 Type 2 diabetes mellitus without complications; M19.90 Unspecified osteoarthritis, unspecified site; Z91.040 Latex allergy status; E66.9 Obesity, unspecified; Z68.37 Body mass index [BMI] 37.0-37.9, adult; Z88.2 Allergy status to sulfonamides; Z88.8 Allergy status to other drugs, medicaments and biological substances; Z79.82 Long term (current) use of aspirin; Z79.84 Long term (current) use of oral hypoglycemic drugs; Z79.899 Other long term (current) drug therapy
CPT/HCPCS: 36415; 80053; 85025; 99283; A9270

== ENCOUNTER 2022-06-24 06:00 | Day surgery (SDC) | payer MEDICARE, OTHER ==
[2022-06-24] MEDS ORDERED: Propofol 200 MG/20 ML SDV ONE (07:29)
[2022-06-24] MEDS ORDERED: fentaNYL 100 MCG/2 ML SDV ONE (07:29)
[2022-06-24] MEDS ORDERED: Lactated Ringers 1,000 ML IV ONE (08:20)
[2022-06-24] MEDS ORDERED: Glycopyrrolate 0.2 MG/ML SDV ONE (08:32)
== END 2022-06-24 09:40 ==
LOC: MW.SDS 06:00
PROVIDERS: ATTEND Surgery
DX: Z12.11 Encounter for screening for malignant neoplasm of colon (principal); K57.30 Diverticulosis of large intestine without perforation or abscess without bleeding; I10 Essential (primary) hypertension; E11.9 Type 2 diabetes mellitus without complications; D64.9 Anemia, unspecified; E66.01 Morbid (severe) obesity due to excess calories; M19.90 Unspecified osteoarthritis, unspecified site; Z79.899 Other long term (current) drug therapy; Z79.84 Long term (current) use of oral hypoglycemic drugs; Z98.890 Other specified postprocedural states; Z68.41 Body mass index [BMI] 40.0-44.9, adult; Z86.010 Personal history of colon polyps; Z91.040 Latex allergy status; Z88.2 Allergy status to sulfonamides; Z88.8 Allergy status to other drugs, medicaments and biological substances
CPT/HCPCS: G0105; J2704; J3010; J3490; J7120; 00811; 99100

== ENCOUNTER 2022-08-21 11:08 | Inpatient (IN) | payer MEDICARE, OTHER ==
[2022-08-21] MEDS ORDERED: Sodium Chloride 0.9% 1,000 ML IV ONE (11:33)
[2022-08-21 12:22] LABS: CARBON DIOXIDE,CO2 22.5 mmol/L (21.0-32.0); POTASSIUM,K 3.8 mmol/L (3.5-5.1)
[2022-08-21 12:27] LABS: CORONAVIRUS COVID-19 NAA NEGATIVE (NEGATIVE); INFLUENZA A NAA NEGATIVE (NEGATIVE); INFLUENZA B NAA NEGATIVE (NEGATIVE); RESPIRATORY SYNCYTIAL VIR NAA NEGATIVE (NEGATIVE)
[2022-08-21] MEDS ORDERED: Iopamidol 755 MG/ML 500 ML Multipack Bottle IVPUSH ONE (14:07)
[2022-08-21] MEDS ORDERED: cefTRIAXone 1 GM in Sodium Chloride 0.9% 50 ML IV ONE (14:58)
[2022-08-21] MEDS ORDERED: Azithromycin 500 MG in Sodium Chloride 0.9% 250 ML IV SCH (15:30)
[2022-08-21] MEDS ORDERED: Acetaminophen 325 MG Tab PO PRN (16:31)
[2022-08-21] MEDS ORDERED: Ondansetron 4 MG/2 ML SDV IVPUSH PRN (16:31)
[2022-08-21] MEDS ORDERED: Polyethylene Glycol 3350 Powder 17 GM Packet PO PRN (16:31)
[2022-08-21] MEDS ORDERED: Albuterol/Ipratropium 3.0-0.5 MG/3 ML Neb Soln NEB PRN (16:31)
[2022-08-21] MEDS ORDERED: 50% Dextrose in Water 50 ML Syringe IVPUSH PRN (16:49)
[2022-08-21] MEDS ORDERED: Glucagon,Human Recombinant 1 MG Vial IM PRN (16:49)
[2022-08-21] MEDS: Enoxaparin 150 MG/1 ML Syringe SUBCUT SCH (17:55)
[2022-08-21] MEDS: Azithromycin 500 MG in Sodium Chloride 0.9% 250 ML IV SCH (17:56)
[2022-08-21] MEDS: Insulin Aspart 100 Units/ML 3 ML Pen SUBCUT SCH (18:01)
[2022-08-21] MEDS ORDERED: Digoxin 500 MCG/2 ML Amp IVPUSH ONE (21:24)
[2022-08-21] MEDS ORDERED: Diltiazem 50 MG/10 ML SDV IVPUSH STA (22:29)
[2022-08-21] MEDS: Diltiazem 25 MG/5 ML SDV IVPUSH STA ×2 (22:43→23:37)
[2022-08-21 23:01] LABS: POTASSIUM,K 4.2 mmol/L (3.5-5.1)
[2022-08-21] MEDS ORDERED: Diltiazem 100 MG in Sodium Chloride 0.9% 100 ML IV SCH (23:45)
[2022-08-22] MEDS ORDERED: Digoxin 500 MCG/2 ML Amp IVPUSH ONE (01:01)
[2022-08-22] MEDS: guaiFENesin/Dextromethorphan 100-10 MG/5 ML Soln 10 ML Cup PO PRN ×2 (01:48→15:27)
[2022-08-22] MEDS: Enoxaparin 150 MG/1 ML Syringe SUBCUT SCH ×2 (04:52→17:34)
[2022-08-22 06:48] LABS: CARBON DIOXIDE,CO2 23.3 mmol/L (21.0-32.0); POTASSIUM,K 4.2 mmol/L (3.5-5.1)
[2022-08-22] MEDS: Insulin Aspart 100 Units/ML 3 ML Pen SUBCUT SCH ×3 (07:48→17:32)
[2022-08-22] MEDS: Nystatin Topical Powder 15 GM Bottle TOP SCH ×3 (12:27→23:20)
[2022-08-22] MEDS ORDERED: Metoprolol Tartrate 25 MG Tab PO SCH (13:45)
[2022-08-22] MEDS: cefTRIAXone 1 GM in Sodium Chloride 0.9% 50 ML IV SCH (15:22)
[2022-08-22] MEDS: Azithromycin 500 MG in Sodium Chloride 0.9% 250 ML IV SCH (17:34)
[2022-08-22] MEDS ORDERED: Diltiazem 25 MG/5 ML SDV IVPUSH ONE (23:08)
[2022-08-22] MEDS: Metoprolol Tartrate 25 MG Tab PO SCH (23:19)
[2022-08-23] MEDS: Nystatin Topical Powder 15 GM Bottle TOP SCH ×5 (06:52→23:28)
[2022-08-23] MEDS: Enoxaparin 150 MG/1 ML Syringe SUBCUT SCH (06:53)
[2022-08-23] MEDS: Insulin Aspart 100 Units/ML 3 ML Pen SUBCUT SCH ×3 (07:40→16:55)
[2022-08-23 08:50] LABS: POTASSIUM,K 4.2 mmol/L (3.5-5.1)
[2022-08-23 10:07] LABS: BORDETELLA PARAPERT IS1001 Not Detected (Not Detected)
[2022-08-23] MEDS: Metoprolol Tartrate 25 MG Tab PO SCH ×3 (10:14→22:39)
[2022-08-23] MEDS: cefTRIAXone 1 GM in Sodium Chloride 0.9% 50 ML IV SCH (14:20)
[2022-08-23] MEDS: Digoxin 125 MCG Tab PO SCH (14:42)
[2022-08-23] MEDS: Azithromycin 500 MG in Sodium Chloride 0.9% 250 ML IV SCH (16:53)
[2022-08-23] MEDS: Apixaban 5 MG Tab PO SCH (21:55)
[2022-08-24] MEDS: Nystatin Topical Powder 15 GM Bottle TOP SCH ×2 (06:36→12:26)
[2022-08-24] MEDS: Insulin Aspart 100 Units/ML 3 ML Pen SUBCUT SCH ×2 (06:42→12:26)
[2022-08-24] MEDS: Apixaban 5 MG Tab PO SCH (08:20)
[2022-08-24] MEDS: Digoxin 125 MCG Tab PO SCH (08:22)
[2022-08-24] MEDS: guaiFENesin/Dextromethorphan 100-10 MG/5 ML Soln 10 ML Cup PO PRN (08:27)
[2022-08-24 08:31] LABS: CARBON DIOXIDE,CO2 23.1 mmol/L (21.0-32.0); POTASSIUM,K 4.2 mmol/L (3.5-5.1)
[2022-08-24] MEDS: Metoprolol Tartrate 25 MG Tab PO SCH (12:24)
[2022-08-24] MEDS ORDERED: Levofloxacin 750 MG Tab PO SCH (13:15)
[2022-08-24] MEDS ORDERED: Diltiazem 120 MG Cap.CD PO SCH (13:30)
[2022-08-24] MEDS ORDERED: Heparin Sodium 100 Units/ML 3 ML Syringe FLUSH ONE (14:15)
[2022-08-24 14:44] VITALS: BP 104/69; PULSE 72
[2022-08-24] MEDS: cefTRIAXone 1 GM in Sodium Chloride 0.9% 50 ML IV SCH (15:40)
== END 2022-08-24 14:20 | disposition home or self-care (01) | DRG 309 ==
LOC: MW.ED 11:08 → MW.ICU 14:57 → MW.MS 08-23 18:48
PROVIDERS: ADMIT Internal Medicine; ATTEND Internal Medicine
DX: I48.91 Unspecified atrial fibrillation (principal); E87.1 Hypo-osmolality and hyponatremia; J40 Bronchitis, not specified as acute or chronic; E11.9 Type 2 diabetes mellitus without complications; Z68.41 Body mass index [BMI] 40.0-44.9, adult; J20.9 Acute bronchitis, unspecified; I11.0 Hypertensive heart disease with heart failure; C18.0 Malignant neoplasm of cecum; C78.7 Secondary malignant neoplasm of liver and intrahepatic bile duct; I50.9 Heart failure, unspecified; E66.9 Obesity, unspecified; D64.9 Anemia, unspecified; E11.40 Type 2 diabetes mellitus with diabetic neuropathy, unspecified; Z79.84 Long term (current) use of oral hypoglycemic drugs; H54.7 Unspecified visual loss; E86.0 Dehydration; Z20.822 Contact with and (suspected) exposure to COVID-19; M19.90 Unspecified osteoarthritis, unspecified site; F32.A Depression, unspecified; Z85.05 Personal history of malignant neoplasm of liver; Z85.118 Personal history of other malignant neoplasm of bronchus and lung; Z86.19 Personal history of other infectious and parasitic diseases; Z79.82 Long term (current) use of aspirin; Z85.038 Personal history of other malignant neoplasm of large intestine; Z79.899 Other long term (current) drug therapy; Z91.040 Latex allergy status; Z88.2 Allergy status to sulfonamides; Z88.8 Allergy status to other drugs, medicaments and biological substances; Z87.440 Personal history of urinary (tract) infections; Z90.89 Acquired absence of other organs; Z90.49 Acquired absence of other specified parts of digestive tract; Z90.710 Acquired absence of both cervix and uterus; Z86.39 Personal history of other endocrine, nutritional and metabolic disease
CPT/HCPCS: 0241U; 36415; 71045; 71275; 80053; 81003; 82947; 83605; 83735; 83880; 84132; 84484; 85025; 85379; 87486; 87581; 87633; 87798; 93005; 93306; 96361; 96365; 97161; 99284; A9270-GY; J0456; J0696; J1160; J1642; J1650; J1815-GY; J3490; J7030; J7050; Q9967

== ENCOUNTER 2023-02-22 13:01 | Emergency (ER) | payer MEDICARE, OTHER ==
[2023-02-22] MEDS ORDERED: Sodium Chloride 0.9% 10 ML Syringe FLUSH PRN (13:33)
[2023-02-22] MEDS ORDERED: Ondansetron 4 MG/2 ML SDV IVPUSH ONE (13:33)
[2023-02-22] MEDS ORDERED: Sodium Chloride 0.9% 2.5 ML Syringe FLUSH PRN (13:33)
[2023-02-22] MEDS ORDERED: Sodium Chloride 0.9% 500 ML IV ONE (13:46)
[2023-02-22 13:50] LABS: HEMATOCRIT 35.3 % (36.0-46.0); HEMOGLOBIN 11.2 g/dL (12.0-16.0); LYMPHOCYTES ABSOLUTE AUTO 1.5 K/uL (0.6-2.4); LYMPHOCYTES PERCENT AUTO 71.2 % (16.0-40.0); MEAN CORPUSCULAR HEMOGLOBIN 28.6 pg (27.0-32.0); MEAN CORPUSCULAR HGB CONC 31.7 g/dL (31.0-37.0); MEAN CORPUSCULAR VOLUME 90.3 fL (80.0-98.0); MONOCYTES ABSOLUTE AUTO 0.3 K/uL (0.0-0.8); MONOCYTES PERCENT AUTO 13.2 % (0.0-15.0); NEUTROPHILS ABSOLUTE AUTO 0.3 K/uL (1.4-5.7); NEUTROPHILS PERCENT AUTO 15.6 % (48.0-80.0); NRBC ABSOLUTE 0 K/uL; NRBC PERCENT 2.1 /100WBC; PLATELET COUNT,PLT 185 K/uL (150-400); RED BLOOD CELL COUNT 3.91 M/uL (4.30-5.90); WHITE BLOOD CELL COUNT,WBC 2.05 K/uL (4.0-11.0)
[2023-02-22 14:11] LABS: A/G RATIO 0.7 (0.9-1.6); ALBUMIN 2.7 g/dL (3.4-5.0); BILIRUBIN TOTAL 0.9 mg/dL (0.2-1.0); CALCIUM 7.4 mg/dL (8.5-10.1); CARBON DIOXIDE,CO2 17.9 mmol/L (21.0-32.0); CREATININE 1.8 mg/dL (0.6-1.0); EST CRCL DRUG DOSING (CG) 24.11 mL/min; MAGNESIUM 1.1 mg/dL (1.8-2.4); POTASSIUM,K 3.3 mmol/L (3.5-5.1); PROTEIN TOTAL,TP 6.5 g/dL (6.4-8.2)
[2023-02-22 14:16] LABS: LACTIC ACID 6.2 mmol/L (0.4-2.0)
[2023-02-22] MEDS ORDERED: Cefepime 2 GM Vial IVPUSH STA (14:27)
[2023-02-22] MEDS ORDERED: Cefepime 2 GM in Sodium Chloride 0.9% 50 ML IV ONE (14:45)
[2023-02-22] MEDS ORDERED: Sodium Chloride 0.9% 1,000 ML IV ONE (14:51)
[2023-02-22] MEDS ORDERED: Potassium Chloride 10 MEQ in Premix Bag 1 BAG IV ONE (15:21)
[2023-02-22 16:19] VITALS: BP 116/89; PULSE 111
[2023-02-22 17:13] LABS: APPEARANCE,URINE CLEAR; BILIRUBIN,URINE NEGATIVE (NEGATIVE); COLOR,URINE YELLOW; GLUCOSE,URINE NEGATIVE (NEGATIVE); KETONES,URINE NEGATIVE (NEGATIVE); LEUKOCYTE ESTERASE,URINE NEGATIVE (NEGATIVE); NITRITE,URINE NEGATIVE (NEGATIVE); OCCULT BLOOD,URINE NEGATIVE (NEGATIVE); PH,URINE 5.5 (5.0-8.0); PROTEIN,URINE NEGATIVE (NEGATIVE); UROBILINOGEN,URINE 0.2 EU/dL (<2.0)
[2023-02-22] MEDS ORDERED: Cefepime 2 GM in Sodium Chloride 0.9% 50 ML IV SCH (21:00)
== END 2023-02-22 17:07 ==
LOC: MW.ED 13:01
DX: A41.9 Sepsis, unspecified organism (principal); D70.9 Neutropenia, unspecified; R65.20 Severe sepsis without septic shock; C18.9 Malignant neoplasm of colon, unspecified; C78.7 Secondary malignant neoplasm of liver and intrahepatic bile duct; K43.9 Ventral hernia without obstruction or gangrene; I48.91 Unspecified atrial fibrillation; N17.9 Acute kidney failure, unspecified; E87.6 Hypokalemia; E66.9 Obesity, unspecified; Z68.36 Body mass index [BMI] 36.0-36.9, adult; E11.9 Type 2 diabetes mellitus without complications; M19.90 Unspecified osteoarthritis, unspecified site; I10 Essential (primary) hypertension; Z79.82 Long term (current) use of aspirin; Z79.84 Long term (current) use of oral hypoglycemic drugs; Z79.899 Other long term (current) drug therapy; Z88.2 Allergy status to sulfonamides; Z88.8 Allergy status to other drugs, medicaments and biological substances; Z91.040 Latex allergy status
CPT/HCPCS: 36415; 71250; 74176; 80053; 81003; 83605; 83690; 83735; 85025; 87040; 93005; 96361; 96365; 96367; 96375; 99285; J0692; J2405; J3480; J3490; J7030; J7040; 93010; 99291

== ENCOUNTER 2023-07-28 10:50 | Emergency (ER) | payer MEDICARE, OTHER ==
[2023-07-28 11:26] VITALS: BP 203/78; PULSE 98
== END 2023-07-28 11:55 | disposition home or self-care (01) ==
LOC: MW.ED 10:50
DX: B86 Scabies (principal); I10 Essential (primary) hypertension; I48.91 Unspecified atrial fibrillation; M19.90 Unspecified osteoarthritis, unspecified site; E11.9 Type 2 diabetes mellitus without complications; E66.9 Obesity, unspecified; Z68.36 Body mass index [BMI] 36.0-36.9, adult; Z91.040 Latex allergy status; Z88.8 Allergy status to other drugs, medicaments and biological substances; Z88.2 Allergy status to sulfonamides; Z79.82 Long term (current) use of aspirin; Z79.84 Long term (current) use of oral hypoglycemic drugs; Z79.899 Other long term (current) drug therapy; Z79.01 Long term (current) use of anticoagulants
CPT/HCPCS: 99282; 99283

== ENCOUNTER 2023-09-22 00:36 | Emergency (ER) | payer MEDICARE, OTHER ==
[2023-09-22] MEDS ORDERED: Sodium Chloride 0.9% 1,000 ML IV STA (00:52)
[2023-09-22] MEDS ORDERED: Diltiazem 25 MG/5 ML SDV IVPUSH ONE (00:59)
[2023-09-22 01:17] LABS: BASOPHILS ABSOLUTE AUTO 0.02 K/uL (0.00-0.20); BASOPHILS PERCENT AUTO 0.5 % (0.0-1.0); EOSINOPHILS ABSOLUTE AUTO 0.04 K/uL (0.00-0.45); EOSINOPHILS PERCENT AUTO 0.9 % (0.0-6.0); HEMATOCRIT 35.1 % (37.0-47.0); HEMOGLOBIN 11.1 g/dL (12.0-16.0); IMMATURE GRAN ABSOLUTE AUTO 0.02 K/uL (0.00-0.05); IMMATURE GRAN PERCENT AUTO 0.5 % (0.0-0.4); LYMPHOCYTES ABSOLUTE AUTO 1.15 K/uL (1.00-4.80); LYMPHOCYTES PERCENT AUTO 26.6 % (24.0-44.0); MEAN CORPUSCULAR HEMOGLOBIN 29.3 pg (28.0-32.0); MEAN CORPUSCULAR HGB CONC 31.6 g/dL (32.0-36.0); MEAN CORPUSCULAR VOLUME 92.6 fL (83.0-99.0); MEAN PLATELET VOLUME 10.1 fL (9.4-12.3); MONOCYTES ABSOLUTE AUTO 0.35 K/uL (0.00-0.80); MONOCYTES PERCENT AUTO 8.1 % (0.0-8.0); NEUTROPHILS ABSOLUTE AUTO 2.75 K/uL (1.80-7.70); NEUTROPHILS PERCENT AUTO 63.4 % (41.0-71.0); PLATELET COUNT,PLT 232 K/uL (150-400); RED BLOOD CELL COUNT 3.79 M/uL (4.10-5.30); WHITE BLOOD CELL COUNT,WBC 4.33 K/uL (3.9-11.3)
[2023-09-22 01:18] LABS: BASE EXCESS VENOUS -3.2 (-2.0-3.0); BICARBONATE,VENOUS 21 mEq/L (23-28); PCO2 VENOUS 34 mmHG (41-51)
[2023-09-22] MEDS ORDERED: Diltiazem IR 60 MG Tab PO ONE (01:28)
[2023-09-22] MEDS ORDERED: Diltiazem 100 MG in Sodium Chloride 0.9% 100 ML IV SCH (01:30)
[2023-09-22 01:33] LABS: INR 1.17 (0.86-1.11); PTT,PARTIAL THROMBOPLSTIN TIME 29.1 SEC (23.9-30.7)
[2023-09-22 01:33] LABS: CORONAVIRUS COVID-19 NAA NEGATIVE (NEGATIVE); INFLUENZA A NAA NEGATIVE (NEGATIVE); INFLUENZA B NAA NEGATIVE (NEGATIVE)
[2023-09-22 01:38] LABS: PO2 VENOUS < 30 mmHG
[2023-09-22] MEDS ORDERED: Cefepime 2 GM in Sodium Chloride 0.9% 50 ML IV ONE (01:41)
[2023-09-22 01:47] LABS: A/G RATIO 0.6 (0.9-1.6); ALBUMIN 2.7 g/dL (3.4-5.0); BILIRUBIN TOTAL 1.1 mg/dL (0.2-1.0); CALCIUM 8.4 mg/dL (8.5-10.1); CARBON DIOXIDE,CO2 20.4 mmol/L (21.0-32.0); CREATININE 1.2 mg/dL (0.6-1.0); DIGOXIN 0.7 ng/mL (0.9-2.0); EST CRCL DRUG DOSING (CG) 34.21 mL/min; MAGNESIUM 1.5 mg/dL (1.8-2.4); POTASSIUM,K 4.5 mmol/L (3.5-5.1); PROTEIN TOTAL,TP 7.2 g/dL (6.4-8.2)
[2023-09-22 01:56] LABS: LACTIC ACID 2.7 mmol/L (0.4-2.0)
[2023-09-22] MEDS ORDERED: Magnesium Sulfate/Water 2 GM in Premix Bag 1 BAG IV ONE (01:58)
[2023-09-22] MEDS ORDERED: Iopamidol 755 MG/ML 500 ML Multipack Bottle IVPUSH ONE (02:04)
[2023-09-22 03:17] LABS: APPEARANCE,URINE CLEAR; BILIRUBIN,URINE NEGATIVE (NEGATIVE); COLOR,URINE YELLOW; GLUCOSE,URINE NEGATIVE (NEGATIVE); KETONES,URINE NEGATIVE (NEGATIVE); LEUKOCYTE ESTERASE,URINE NEGATIVE (NEGATIVE); NITRITE,URINE NEGATIVE (NEGATIVE); OCCULT BLOOD,URINE TRACE-INTACT (NEGATIVE); PROTEIN,URINE TRACE mg/dL (NEGATIVE)
[2023-09-22 03:21] LABS: RBC,URINE 0-1 (0-2/HPF)
[2023-09-22 03:22] LABS: BACTERIA,URINE FEW (NEGATIVE); EPITHELIAL CELLS,URINE MODERATE (NONE-FEW); WBC,URINE NONE SEEN (0-5/HPF)
[2023-09-22 04:50] VITALS: BP 94/57; PULSE 87
== END 2023-09-22 06:12 ==
LOC: MW.ED 00:36
DX: J18.9 Pneumonia, unspecified organism (principal); I48.91 Unspecified atrial fibrillation; R79.89 Other specified abnormal findings of blood chemistry; I10 Essential (primary) hypertension; E11.9 Type 2 diabetes mellitus without complications; M19.90 Unspecified osteoarthritis, unspecified site; E66.9 Obesity, unspecified; Z68.36 Body mass index [BMI] 36.0-36.9, adult; Z91.040 Latex allergy status; Z88.8 Allergy status to other drugs, medicaments and biological substances; Z88.2 Allergy status to sulfonamides; Z79.82 Long term (current) use of aspirin; Z79.84 Long term (current) use of oral hypoglycemic drugs; Z79.01 Long term (current) use of anticoagulants; Z79.899 Other long term (current) drug therapy
CPT/HCPCS: 0240U; 36415; 71045; 71275; 80053; 80162; 81001; 82803; 83605; 83735; 83880; 84484; 85025; 85610; 85730; 87040; 93005; 96365; 96366; 96368; 99285; A9270; J0692; J3475; J3490; J7030; Q9967; 93010; 99291

== ENCOUNTER 2023-12-27 15:37 | Inpatient (IN) | payer MEDICARE, OTHER ==
[2023-12-27 15:52] LABS: BASOPHILS ABSOLUTE AUTO 0.11 K/uL (0.00-0.20); EOSINOPHILS PERCENT AUTO 3.6 % (0.0-6.0); HEMATOCRIT 42.5 % (37.0-47.0); HEMOGLOBIN 13.8 g/dL (12.0-16.0); IMMATURE GRAN PERCENT AUTO 1.8 % (0.0-0.4); LYMPHOCYTES ABSOLUTE AUTO 2.14 K/uL (1.00-4.80); LYMPHOCYTES PERCENT AUTO 19.2 % (24.0-44.0); MEAN CORPUSCULAR HEMOGLOBIN 31.4 pg (28.0-32.0); MEAN CORPUSCULAR HGB CONC 32.5 g/dL (32.0-36.0); MEAN CORPUSCULAR VOLUME 96.8 fL (83.0-99.0); MEAN PLATELET VOLUME 10.1 fL (9.4-12.3); MONOCYTES ABSOLUTE AUTO 1.15 K/uL (0.00-0.80); MONOCYTES PERCENT AUTO 10.3 % (0.0-8.0); NEUTROPHILS ABSOLUTE AUTO 7.13 K/uL (1.80-7.70); NEUTROPHILS PERCENT AUTO 64.1 % (41.0-71.0); PLATELET COUNT,PLT 130 K/uL (150-400); RED BLOOD CELL COUNT 4.39 M/uL (4.10-5.30); WHITE BLOOD CELL COUNT,WBC 11.13 K/uL (3.9-11.3)
[2023-12-27 16:09] LABS: A/G RATIO 0.6 (0.9-1.6); BILIRUBIN TOTAL 1.8 mg/dL (0.2-1.0); CALCIUM 9.2 mg/dL (8.5-10.1); CARBON DIOXIDE,CO2 23.6 mmol/L (21.0-32.0); CREATININE 1.3 mg/dL (0.6-1.0); EST CRCL DRUG DOSING (CG) 32.85 mL/min; POTASSIUM,K 4.4 mmol/L (3.5-5.1); PROTEIN TOTAL,TP 7.9 g/dL (6.4-8.2)
[2023-12-27] MEDS: Sodium Chloride 0.9% 2.5 ML Syringe FLUSH PRN (16:09)
[2023-12-27] MEDS: Sodium Chloride 0.9% 1,000 ML IV ONE (16:09)
[2023-12-27] MEDS: Sodium Chloride 0.9% 10 ML Syringe FLUSH PRN (16:09)
[2023-12-27] MEDS: Diphtheria,Pertussis(Acell),Tetanus Vaccine 0.5 ML Syringe IM ONE (16:09)
[2023-12-27] MEDS: Ondansetron 4 MG/2 ML SDV IVPUSH ONE (17:04)
[2023-12-27] MEDS: fentaNYL 50 MCG/ML SDV IVPUSH ONE (17:04)
[2023-12-27 17:58] LABS: CORONAVIRUS COVID-19 NAA NEGATIVE (NEGATIVE); INFLUENZA A NAA NEGATIVE (NEGATIVE); INFLUENZA B NAA NEGATIVE (NEGATIVE)
[2023-12-27 18:03] LABS: APPEARANCE,URINE CLEAR; BILIRUBIN,URINE NEGATIVE (NEGATIVE); COLOR,URINE YELLOW; GLUCOSE,URINE NEGATIVE (NEGATIVE); KETONES,URINE NEGATIVE (NEGATIVE); LEUKOCYTE ESTERASE,URINE NEGATIVE (NEGATIVE); NITRITE,URINE NEGATIVE (NEGATIVE); OCCULT BLOOD,URINE MODERATE (NEGATIVE); PROTEIN,URINE 100 mg/dL (NEGATIVE); UROBILINOGEN,URINE 0.2 EU/dL (<2.0)
[2023-12-27 18:11] LABS: BACTERIA,URINE RARE (NEGATIVE); EPITHELIAL CELLS,URINE FEW (NONE-FEW); RBC,URINE 0-2 (0-2/HPF); WBC,URINE 0-1 (0-5/HPF)
[2023-12-27] MEDS ORDERED: Albuterol/Ipratropium 3.0-0.5 MG/3 ML Neb Soln NEB PRN (19:13)
[2023-12-27] MEDS ORDERED: 50% Dextrose in Water 50 ML Syringe IVPUSH PRN (19:13)
[2023-12-27] MEDS ORDERED: Melatonin 3 MG Tab PO PRN (19:13)
[2023-12-27] MEDS ORDERED: Glucagon,Human Recombinant 1 MG Vial IM PRN (19:13)
[2023-12-27] MEDS ORDERED: Ondansetron 4 MG/2 ML SDV IVPUSH PRN (19:13)
[2023-12-27] MEDS ORDERED: Polyethylene Glycol 3350 Powder 17 GM Packet PO PRN (19:13)
[2023-12-27] MEDS: Acetaminophen 325 MG Tab PO PRN (22:16)
[2023-12-27] MEDS: Apixaban 5 MG Tab PO SCH (22:17)
[2023-12-27] MEDS: Insulin Aspart 100 Units/ML 3 ML Pen SUBCUT SCH (22:18)
[2023-12-27] MEDS: Latanoprost 0.005% Ophth Soln 2.5 ML Bottle EYEBOTH SCH (22:27)
[2023-12-28] MEDS: Metoprolol Tartrate 25 MG Tab PO SCH ×2 (00:42→20:21)
[2023-12-28 06:00] LABS: BASOPHILS ABSOLUTE AUTO 0.06 K/uL (0.00-0.20); BASOPHILS PERCENT AUTO 0.6 % (0.0-1.0); EOSINOPHILS ABSOLUTE AUTO 0.66 K/uL (0.00-0.45); EOSINOPHILS PERCENT AUTO 6.2 % (0.0-6.0); HEMATOCRIT 38.2 % (37.0-47.0); HEMOGLOBIN 12.2 g/dL (12.0-16.0); IMMATURE GRAN ABSOLUTE AUTO 0.11 K/uL (0.00-0.05); LYMPHOCYTES ABSOLUTE AUTO 3.01 K/uL (1.00-4.80); LYMPHOCYTES PERCENT AUTO 28.4 % (24.0-44.0); MEAN CORPUSCULAR HEMOGLOBIN 31.2 pg (28.0-32.0); MEAN CORPUSCULAR HGB CONC 31.9 g/dL (32.0-36.0); MEAN CORPUSCULAR VOLUME 97.7 fL (83.0-99.0); MEAN PLATELET VOLUME 10.5 fL (9.4-12.3); MONOCYTES ABSOLUTE AUTO 1.42 K/uL (0.00-0.80); MONOCYTES PERCENT AUTO 13.4 % (0.0-8.0); NEUTROPHILS ABSOLUTE AUTO 5.35 K/uL (1.80-7.70); NEUTROPHILS PERCENT AUTO 50.4 % (41.0-71.0); PLATELET COUNT,PLT 103 K/uL (150-400); RED BLOOD CELL COUNT 3.91 M/uL (4.10-5.30); WHITE BLOOD CELL COUNT,WBC 10.61 K/uL (3.9-11.3)
[2023-12-28 06:12] LABS: CALCIUM 8.4 mg/dL (8.5-10.1); CARBON DIOXIDE,CO2 23.2 mmol/L (21.0-32.0); CREATININE 1.3 mg/dL (0.6-1.0); EST CRCL DRUG DOSING (CG) 32.85 mL/min; MAGNESIUM 1.6 mg/dL (1.8-2.4)
[2023-12-28] MEDS: Digoxin 125 MCG Tab PO SCH (08:47)
[2023-12-28] MEDS: Diltiazem 120 MG Cap.CD PO SCH (08:50)
[2023-12-28] MEDS: Magnesium Sulfate/Water 2 GM in Premix Bag 1 BAG IV ONE (11:20)
[2023-12-28] MEDS: DULoxetine 30 MG Cap PO SCH (11:20)
[2023-12-28] MEDS: Furosemide 20 MG Tab PO SCH (12:16)
[2023-12-29 06:41] LABS: BASOPHILS ABSOLUTE AUTO 0.03 K/uL (0.00-0.20); BASOPHILS PERCENT AUTO 0.3 % (0.0-1.0); EOSINOPHILS ABSOLUTE AUTO 0.97 K/uL (0.00-0.45); HEMATOCRIT 38.1 % (37.0-47.0); HEMOGLOBIN 12.4 g/dL (12.0-16.0); IMMATURE GRAN ABSOLUTE AUTO 0.14 K/uL (0.00-0.05); IMMATURE GRAN PERCENT AUTO 1.6 % (0.0-0.4); LYMPHOCYTES ABSOLUTE AUTO 2.44 K/uL (1.00-4.80); LYMPHOCYTES PERCENT AUTO 27.7 % (24.0-44.0); MEAN CORPUSCULAR HEMOGLOBIN 30.8 pg (28.0-32.0); MEAN CORPUSCULAR HGB CONC 32.5 g/dL (32.0-36.0); MEAN CORPUSCULAR VOLUME 94.8 fL (83.0-99.0); MONOCYTES ABSOLUTE AUTO 1.41 K/uL (0.00-0.80); NEUTROPHILS ABSOLUTE AUTO 3.81 K/uL (1.80-7.70); NEUTROPHILS PERCENT AUTO 43.4 % (41.0-71.0); PLATELET COUNT,PLT 91 K/uL (150-400); RED BLOOD CELL COUNT 4.02 M/uL (4.10-5.30)
[2023-12-29 07:09] LABS: A/G RATIO 0.6 (0.9-1.6); ALBUMIN 2.4 g/dL (3.4-5.0); BILIRUBIN TOTAL 1.7 mg/dL (0.2-1.0); CALCIUM 8.2 mg/dL (8.5-10.1); CARBON DIOXIDE,CO2 21.6 mmol/L (21.0-32.0); EST CRCL DRUG DOSING (CG) 42.7 mL/min; POTASSIUM,K 3.9 mmol/L (3.5-5.1); PROTEIN TOTAL,TP 6.6 g/dL (6.4-8.2)
[2023-12-29] MEDS: Losartan 25 MG Tab PO SCH (10:03)
[2023-12-29] MEDS: Sodium Chloride 1 GM Tab PO ONE (10:04)
[2023-12-29 11:15] VITALS: BP 181/89; PULSE 64
== END 2023-12-29 15:13 | disposition home health service (06) | DRG 948 ==
LOC: MW.ED 15:37 → MW.MS 18:57
PROVIDERS: ADMIT Family Medicine; ATTEND Family Medicine
DX: S00.83XA Contusion of other part of head, initial encounter (principal); R53.1 Weakness; I10 Essential (primary) hypertension; C18.9 Malignant neoplasm of colon, unspecified; C78.7 Secondary malignant neoplasm of liver and intrahepatic bile duct; Z66 Do not resuscitate; R26.81 Unsteadiness on feet; I48.91 Unspecified atrial fibrillation; M19.90 Unspecified osteoarthritis, unspecified site; F32.A Depression, unspecified; W18.30XA Fall on same level, unspecified, initial encounter; I11.0 Hypertensive heart disease with heart failure; E11.9 Type 2 diabetes mellitus without complications; I50.9 Heart failure, unspecified; E66.9 Obesity, unspecified; K63.89 Other specified diseases of intestine; Z74.09 Other reduced mobility; Z88.8 Allergy status to other drugs, medicaments and biological substances; Z79.01 Long term (current) use of anticoagulants; Z79.82 Long term (current) use of aspirin; Z86.010 Personal history of colon polyps; Z87.440 Personal history of urinary (tract) infections; Z79.84 Long term (current) use of oral hypoglycemic drugs; Z79.899 Other long term (current) drug therapy; Z68.34 Body mass index [BMI] 34.0-34.9, adult; Z98.890 Other specified postprocedural states; Z90.710 Acquired absence of both cervix and uterus; Z90.49 Acquired absence of other specified parts of digestive tract; Z88.2 Allergy status to sulfonamides; Z91.040 Latex allergy status; Z92.21 Personal history of antineoplastic chemotherapy
CPT/HCPCS: 0240U; 36415; 70450; 71045; 72125; 80048; 80053; 81001; 82550; 82947; 83735; 85025; 90715; 93005; 97162; 90471; 93010; 96361; 96374; 96375; 99222; 99232; 99239; 99285; 99285-25; A9270-GY; J1815-GY; J2405; J3010; J3475; J3490; J7030

== ENCOUNTER 2024-01-07 11:17 | Observation (INO) | payer MEDICARE, OTHER ==
[2024-01-07] MEDS: Sodium Chloride 0.9% 10 ML Syringe FLUSH PRN (12:18)
[2024-01-07] MEDS: Sodium Chloride 0.9% 2.5 ML Syringe FLUSH PRN (12:18)
[2024-01-07 12:19] LABS: BASOPHILS ABSOLUTE AUTO 0.08 K/uL (0.00-0.20); BASOPHILS PERCENT AUTO 0.5 % (0.0-1.0); EOSINOPHILS ABSOLUTE AUTO 0.05 K/uL (0.00-0.45); EOSINOPHILS PERCENT AUTO 0.3 % (0.0-6.0); HEMATOCRIT 34.9 % (37.0-47.0); HEMOGLOBIN 11.2 g/dL (12.0-16.0); IMMATURE GRAN ABSOLUTE AUTO 0.11 K/uL (0.00-0.05); IMMATURE GRAN PERCENT AUTO 0.7 % (0.0-0.4); LYMPHOCYTES ABSOLUTE AUTO 2.73 K/uL (1.00-4.80); LYMPHOCYTES PERCENT AUTO 17.3 % (24.0-44.0); MEAN CORPUSCULAR HEMOGLOBIN 30.7 pg (28.0-32.0); MEAN CORPUSCULAR HGB CONC 32.1 g/dL (32.0-36.0); MEAN CORPUSCULAR VOLUME 95.6 fL (83.0-99.0); MEAN PLATELET VOLUME 10.3 fL (9.4-12.3); MONOCYTES ABSOLUTE AUTO 1.83 K/uL (0.00-0.80); MONOCYTES PERCENT AUTO 11.6 % (0.0-8.0); NEUTROPHILS ABSOLUTE AUTO 11.02 K/uL (1.80-7.70); NEUTROPHILS PERCENT AUTO 69.6 % (41.0-71.0); PLATELET COUNT,PLT 201 K/uL (150-400); RED BLOOD CELL COUNT 3.65 M/uL (4.10-5.30); WHITE BLOOD CELL COUNT,WBC 15.82 K/uL (3.9-11.3)
[2024-01-07 12:30] LABS: GLUCOSE,URINE NEGATIVE (NEGATIVE); KETONES,URINE NEGATIVE (NEGATIVE); LEUKOCYTE ESTERASE,URINE TRACE (NEGATIVE); NITRITE,URINE POSITIVE (NEGATIVE); OCCULT BLOOD,URINE LARGE (NEGATIVE); PROTEIN,URINE >=300 mg/dL (NEGATIVE)
[2024-01-07 12:33] LABS: APPEARANCE,URINE CLOUDY; BILIRUBIN,URINE SMALL (NEGATIVE); COLOR,URINE AMBER
[2024-01-07 12:46] LABS: INR 1.09 (0.86-1.11)
[2024-01-07 12:51] LABS: BACTERIA,URINE 4+ (NEGATIVE); EPITHELIAL CELLS,URINE MODERATE (NONE-FEW); MUCUS,URINE NOT SEEN (NONE-MOD)
[2024-01-07] MEDS: Acetaminophen/HYDROcodone 325-5 MG Tab PO ONE ×2 (12:56→15:16)
[2024-01-07 13:00] LABS: LACTIC ACID 2.5 mmol/L (0.4-2.0)
[2024-01-07 13:04] LABS: A/G RATIO 0.5 (0.9-1.6); ALANINE AMINOTRANSFERASE,ALT 26 IU/L (14-63); ALBUMIN 2.1 g/dL (3.4-5.0); ALKALINE PHOSPHATASE 194 U/L (46-116); ASPARTATE AMNIOTRANSFERASE,AST 58 IU/L (15-37); BILIRUBIN TOTAL 2.1 mg/dL (0.2-1.0); BLOOD UREA NITROGEN,BUN 12 mg/dL (7.0-18.0); CALCIUM 8.2 mg/dL (8.5-10.1); CARBON DIOXIDE,CO2 24.5 mmol/L (21.0-32.0); CHLORIDE,CL 98 mmol/L (98-107); ESTIMATED GFR 57 mL/min (>60); ETHANOL BLOOD MEDICAL <3 mg/dL; GLUCOSE RANDOM 117 mg/dL (74-106); LIPASE 14 U/L (16-77); MAGNESIUM 1.3 mg/dL (1.8-2.4); PROTEIN TOTAL,TP 6.8 g/dL (6.4-8.2); SODIUM,NA 131 mmol/L (136-145)
[2024-01-07 13:10] LABS: CORONAVIRUS COVID-19 NAA NEGATIVE (NEGATIVE); INFLUENZA A NAA NEGATIVE (NEGATIVE); INFLUENZA B NAA NEGATIVE (NEGATIVE); RESPIRATORY SYNCYTIAL VIR NAA NEGATIVE (NEGATIVE)
[2024-01-07] MEDS: Ondansetron 4 MG/2 ML SDV IVPUSH ONE (13:13)
[2024-01-07] MEDS: cefTRIAXone 1 GM in Sodium Chloride 0.9% 50 ML IV ONE (13:43)
[2024-01-07] MEDS ORDERED: Acetaminophen 325 MG Tab PO PRN (14:03)
[2024-01-07] MEDS ORDERED: Ondansetron 4 MG/2 ML SDV IVPUSH PRN (14:03)
[2024-01-07] MEDS ORDERED: Albuterol/Ipratropium 3.0-0.5 MG/3 ML Neb Soln NEB PRN (14:03)
[2024-01-07] MEDS ORDERED: Acetaminophen 650 MG Supp RECTAL PRN (14:03)
[2024-01-07] MEDS ORDERED: Polyethylene Glycol 3350 Powder 17 GM Packet PO PRN (14:03)
[2024-01-07] MEDS ORDERED: Glucagon,Human Recombinant 1 MG Vial IM PRN (14:08)
[2024-01-07] MEDS ORDERED: 50% Dextrose in Water 50 ML Syringe IVPUSH PRN (14:08)
[2024-01-07] MEDS ORDERED: Sodium Chloride 0.9% 1,000 ML IV SCH (14:15)
[2024-01-07] MEDS: Sodium Chloride 0.9% 1,000 ML IV ONE ×2 (14:16→16:30)
[2024-01-07] MEDS: Magnesium Sulfate/Water 2 GM in Premix Bag 1 BAG IV ONE (14:16)
[2024-01-07] MEDS: Metoprolol Tartrate 25 MG Tab PO SCH (16:28)
[2024-01-07] MEDS: Pantoprazole 40 MG in Sodium Chloride 0.9% 10 ML IVPUSH SCH (16:29)
[2024-01-07] MEDS: Insulin Aspart 100 Units/ML 3 ML Pen SUBCUT SCH (18:13)
[2024-01-07] MEDS: Latanoprost 0.005% Ophth Soln 2.5 ML Bottle EYEBOTH SCH (21:51)
[2024-01-07] MEDS: oxyCODONE 5 MG Tab PO PRN (21:53)
[2024-01-07] MEDS: Apixaban 5 MG Tab PO SCH (21:55)
[2024-01-08 06:15] LABS: HEMATOCRIT 32.9 % (37.0-47.0); HEMOGLOBIN 10.4 g/dL (12.0-16.0); MEAN CORPUSCULAR HEMOGLOBIN 30.1 pg (28.0-32.0); MEAN CORPUSCULAR HGB CONC 31.6 g/dL (32.0-36.0); MEAN CORPUSCULAR VOLUME 95.1 fL (83.0-99.0); MEAN PLATELET VOLUME 10.8 fL (9.4-12.3); PLATELET COUNT,PLT 163 K/uL (150-400); RED BLOOD CELL COUNT 3.46 M/uL (4.10-5.30); WHITE BLOOD CELL COUNT,WBC 13.85 K/uL (3.9-11.3)
[2024-01-08 06:51] LABS: A/G RATIO 0.4 (0.9-1.6); ALBUMIN 1.9 g/dL (3.4-5.0); BILIRUBIN TOTAL 2.1 mg/dL (0.2-1.0); CALCIUM 7.9 mg/dL (8.5-10.1); CARBON DIOXIDE,CO2 20.1 mmol/L (21.0-32.0); EST CRCL DRUG DOSING (CG) 42.7 mL/min; MAGNESIUM 1.7 mg/dL (1.8-2.4); PHOSPHORUS 3.6 mg/dL (2.6-4.7); POTASSIUM,K 4.4 mmol/L (3.5-5.1); PROTEIN TOTAL,TP 6.5 g/dL (6.4-8.2)
[2024-01-08] MEDS: Metoprolol Tartrate 50 MG Tab PO SCH (08:21)
[2024-01-08] MEDS: cefTRIAXone 1 GM in Sodium Chloride 0.9% 50 ML IV SCH (08:21)
[2024-01-08] MEDS: Digoxin 125 MCG Tab PO SCH (08:21)
[2024-01-08] MEDS ORDERED: Metoprolol Tartrate 25 MG Tab PO SCH (09:00)
[2024-01-08] MEDS: Iopamidol 755 MG/ML 500 ML Multipack Bottle IVPUSH STA (10:32)
[2024-01-08] MEDS: Magnesium Oxide 400 MG Tab PO ONE (10:53)
[2024-01-08] MEDS: Sodium Chloride 1 GM Tab PO SCH (10:55)
[2024-01-08] MEDS: DULoxetine 30 MG Cap PO SCH (10:55)
[2024-01-08 15:12] VITALS: BP 140/81; PULSE 90
[2024-01-09] MEDS ORDERED: Losartan 25 MG Tab PO SCH (09:00)
== END 2024-01-08 15:05 | disposition home or self-care (01) ==
LOC: MW.ED 11:17 → MW.MS 13:56
PROVIDERS: ADMIT Family Medicine; ATTEND Family Medicine
DX: T83.592A Infection and inflammatory reaction due to indwelling ureteral stent, initial encounter (principal); E11.9 Type 2 diabetes mellitus without complications; F32.A Depression, unspecified; R26.81 Unsteadiness on feet; Z79.82 Long term (current) use of aspirin; Z79.899 Other long term (current) drug therapy; Y84.6 Urinary catheterization as the cause of abnormal reaction of the patient, or of later complication, without mention of misadventure at the time of the procedure; Z88.2 Allergy status to sulfonamides; Z79.01 Long term (current) use of anticoagulants
CPT/HCPCS: 0241U; 36415; 70450; 71045; 73060; 73090; 73100; 73130; 73701; 80053; 80162; 80307; 81001; 82947; 83605; 83690; 83735; 84100; 84443; 84484; 85025; 85027; 85610; 85652; 86140; 87040; 93005; 96365; 96366; 96367; 96375; 96376; 97162; 97165; 99285; A9270; C9113; G0378; J0696; J1815; J2405; J3475; J3490; J7030; Q9967; 93010; 99222; 99239; 99291

== ENCOUNTER 2024-01-14 23:28 | Emergency (ER) | payer MEDICARE, OTHER ==
[2024-01-15 00:15] LABS: BASOPHILS ABSOLUTE AUTO 0.04 K/uL (0.00-0.20); BASOPHILS PERCENT AUTO 0.4 % (0.0-1.0); EOSINOPHILS ABSOLUTE AUTO 0.12 K/uL (0.00-0.45); EOSINOPHILS PERCENT AUTO 1.2 % (0.0-6.0); HEMATOCRIT 29.4 % (37.0-47.0); HEMOGLOBIN 9.5 g/dL (12.0-16.0); IMMATURE GRAN ABSOLUTE AUTO 0.05 K/uL (0.00-0.05); IMMATURE GRAN PERCENT AUTO 0.5 % (0.0-0.4); LYMPHOCYTES ABSOLUTE AUTO 2.35 K/uL (1.00-4.80); LYMPHOCYTES PERCENT AUTO 23.2 % (24.0-44.0); MEAN CORPUSCULAR HEMOGLOBIN 30.8 pg (28.0-32.0); MEAN CORPUSCULAR HGB CONC 32.3 g/dL (32.0-36.0); MEAN CORPUSCULAR VOLUME 95.5 fL (83.0-99.0); MEAN PLATELET VOLUME 9.1 fL (9.4-12.3); MONOCYTES PERCENT AUTO 11.9 % (0.0-8.0); NEUTROPHILS ABSOLUTE AUTO 6.35 K/uL (1.80-7.70); NEUTROPHILS PERCENT AUTO 62.8 % (41.0-71.0); PLATELET COUNT,PLT 210 K/uL (150-400); RED BLOOD CELL COUNT 3.08 M/uL (4.10-5.30); WHITE BLOOD CELL COUNT,WBC 10.11 K/uL (3.9-11.3)
[2024-01-15] MEDS: Ondansetron 4 MG/2 ML SDV IVPUSH ONE (00:19)
[2024-01-15] MEDS: Acetaminophen 500 MG Tab PO ONE (00:19)
[2024-01-15] MEDS: Sodium Chloride 0.9% 500 ML IV ONE (00:23)
[2024-01-15] MEDS: Iopamidol 755 MG/ML 500 ML Multipack Bottle IVPUSH ONE (00:48)
[2024-01-15 00:59] LABS: APPEARANCE,URINE CLEAR; BILIRUBIN,URINE NEGATIVE (NEGATIVE); COLOR,URINE YELLOW; GLUCOSE,URINE NEGATIVE (NEGATIVE); KETONES,URINE NEGATIVE (NEGATIVE); LEUKOCYTE ESTERASE,URINE NEGATIVE (NEGATIVE); NITRITE,URINE NEGATIVE (NEGATIVE); OCCULT BLOOD,URINE MODERATE (NEGATIVE); PH,URINE 7.5 (5.0-8.0); PROTEIN,URINE NEGATIVE (NEGATIVE); UROBILINOGEN,URINE 0.2 EU/dL (<2.0)
[2024-01-15 00:59] LABS: A/G RATIO 0.4 (0.9-1.6); ALBUMIN 1.8 g/dL (3.4-5.0); BILIRUBIN TOTAL 1.1 mg/dL (0.2-1.0); CREATININE 0.8 mg/dL (0.6-1.0); EST CRCL DRUG DOSING (CG) 53.38 mL/min; MAGNESIUM 1.4 mg/dL (1.8-2.4); POTASSIUM,K 3.5 mmol/L (3.5-5.1); PROTEIN TOTAL,TP 6.4 g/dL (6.4-8.2)
[2024-01-15 01:06] LABS: BACTERIA,URINE FEW (NEGATIVE); MUCUS,URINE NOT SEEN (NONE-MOD); SQUAMOUS EPITHELIAL CELLS,UR MODERATE; WBC,URINE 0-1 (0-5/HPF)
[2024-01-15] MEDS: Magnesium Sulfate/Water 2 GM in Premix Bag 1 BAG IV ONE (01:15)
[2024-01-15 02:24] VITALS: BP 137/68; PULSE 80
[2024-01-15] MEDS: Heparin Sodium 100 Units/ML 3 ML Syringe FLUSH STA (02:31)
== END 2024-01-15 02:41 | disposition home or self-care (01) ==
LOC: MW.ED 23:28
DX: R11.2 Nausea with vomiting, unspecified (principal); C78.7 Secondary malignant neoplasm of liver and intrahepatic bile duct; C18.9 Malignant neoplasm of colon, unspecified; I48.91 Unspecified atrial fibrillation; I10 Essential (primary) hypertension; M19.90 Unspecified osteoarthritis, unspecified site; E11.9 Type 2 diabetes mellitus without complications; E66.9 Obesity, unspecified; Z79.01 Long term (current) use of anticoagulants; Z79.82 Long term (current) use of aspirin; Z79.899 Other long term (current) drug therapy; Z88.2 Allergy status to sulfonamides; Z88.8 Allergy status to other drugs, medicaments and biological substances; Z91.040 Latex allergy status; Z75.8 Other problems related to medical facilities and other health care
CPT/HCPCS: 36415; 74177; 80053; 80162; 81001; 83690; 83735; 84484; 85025; 93005; 96361; 96365; 96375; 99284; A9270; J1642; J2405; J3475; J7030; Q9967; 93010

== ENCOUNTER 2024-01-26 18:13 | Observation (INO) | payer MEDICARE, OTHER ==
[2024-01-26] MEDS: Sodium Chloride 0.9% 2.5 ML Syringe FLUSH PRN (19:48)
[2024-01-26] MEDS: Sodium Chloride 0.9% 10 ML Syringe FLUSH PRN (19:49)
[2024-01-26 19:55] LABS: BASOPHILS ABSOLUTE AUTO 0.03 K/uL (0.00-0.20); BASOPHILS PERCENT AUTO 0.3 % (0.0-1.0); EOSINOPHILS ABSOLUTE AUTO 0.12 K/uL (0.00-0.45); EOSINOPHILS PERCENT AUTO 1.1 % (0.0-6.0); HEMOGLOBIN 9.6 g/dL (12.0-16.0); IMMATURE GRAN ABSOLUTE AUTO 0.11 K/uL (0.00-0.05); LYMPHOCYTES ABSOLUTE AUTO 1.33 K/uL (1.00-4.80); LYMPHOCYTES PERCENT AUTO 12.2 % (24.0-44.0); MEAN CORPUSCULAR HEMOGLOBIN 30.5 pg (28.0-32.0); MEAN CORPUSCULAR VOLUME 95.2 fL (83.0-99.0); MEAN PLATELET VOLUME 9.4 fL (9.4-12.3); MONOCYTES ABSOLUTE AUTO 1.21 K/uL (0.00-0.80); MONOCYTES PERCENT AUTO 11.1 % (0.0-8.0); NEUTROPHILS ABSOLUTE AUTO 8.12 K/uL (1.80-7.70); NEUTROPHILS PERCENT AUTO 74.3 % (41.0-71.0); PLATELET COUNT,PLT 248 K/uL (150-400); RED BLOOD CELL COUNT 3.15 M/uL (4.10-5.30); WHITE BLOOD CELL COUNT,WBC 10.92 K/uL (3.9-11.3)
[2024-01-26] MEDS: Cefepime 2 GM in Sodium Chloride 0.9% 50 ML IV ONE (20:01)
[2024-01-26 20:22] LABS: LACTIC ACID 2.2 mmol/L (0.4-2.0)
[2024-01-26 20:28] LABS: A/G RATIO 0.4 (0.9-1.6); ALBUMIN 1.9 g/dL (3.4-5.0); BILIRUBIN TOTAL 0.6 mg/dL (0.2-1.0); CALCIUM 8.2 mg/dL (8.5-10.1); EST CRCL DRUG DOSING (CG) 42.7 mL/min; MAGNESIUM 1.5 mg/dL (1.8-2.4); PHOSPHORUS 3.1 mg/dL (2.6-4.7); POTASSIUM,K 4.2 mmol/L (3.5-5.1); TSH ULTRASENSITIVE 3.11 uIU/mL (0.36-3.74)
[2024-01-26] MEDS: Acetaminophen 500 MG Tab PO ONE (20:29)
[2024-01-26 20:48] LABS: COLOR,URINE YELLOW; GLUCOSE,URINE NEGATIVE (NEGATIVE); KETONES,URINE NEGATIVE (NEGATIVE); LEUKOCYTE ESTERASE,URINE NEGATIVE (NEGATIVE); NITRITE,URINE NEGATIVE (NEGATIVE); OCCULT BLOOD,URINE LARGE (NEGATIVE); PROTEIN,URINE 100 mg/dL (NEGATIVE)
[2024-01-26 21:03] LABS: BILIRUBIN,URINE SMALL (NEGATIVE)
[2024-01-26] MEDS: Iopamidol 755 MG/ML 500 ML Multipack Bottle IVPUSH ONE (21:20)
[2024-01-26 21:38] LABS: EPITHELIAL CELLS,URINE FEW (NONE-FEW); RBC,URINE 15-20 (0-2/HPF); WBC,URINE 0-5 (0-5/HPF)
[2024-01-26 21:39] LABS: APPEARANCE,URINE HAZY; BACTERIA,URINE FEW (NEGATIVE); YEAST,URINE OCCASIONAL
[2024-01-26] MEDS: Magnesium Sulfate/Water 2 GM in Premix Bag 1 BAG IV ONE (21:41)
[2024-01-26] MEDS: Sodium Chloride 0.9% 500 ML IV SCH (21:41)
[2024-01-26] MEDS ORDERED: Acetaminophen 325 MG Tab PO PRN (23:30)
[2024-01-26] MEDS ORDERED: Polyethylene Glycol 3350 Powder 17 GM Packet PO PRN (23:30)
[2024-01-26] MEDS ORDERED: Acetaminophen 650 MG Supp RECTAL PRN (23:30)
[2024-01-26] MEDS ORDERED: 50% Dextrose in Water 50 ML Syringe IVPUSH PRN (23:34)
[2024-01-26] MEDS ORDERED: Glucagon,Human Recombinant 1 MG Vial IM PRN (23:34)
[2024-01-26] MEDS ORDERED: Cefepime 2 GM in Sodium Chloride 0.9% 50 ML IV SCH (23:45)
[2024-01-27 00:32] LABS: CALCIUM 8.1 mg/dL (8.5-10.1); CARBON DIOXIDE,CO2 22.5 mmol/L (21.0-32.0); CREATININE 1.1 mg/dL (0.6-1.0); EST CRCL DRUG DOSING (CG) 38.82 mL/min
[2024-01-27] MEDS: Insulin Aspart 100 Units/ML 3 ML Pen SUBCUT SCH (00:39)
[2024-01-27] MEDS: Metoprolol Tartrate 25 MG Tab PO SCH (00:59)
[2024-01-27] MEDS: Cefepime 2 GM in Sodium Chloride 0.9% 50 ML IV SCH (02:44)
[2024-01-27 06:19] LABS: BASOPHILS ABSOLUTE AUTO 0.04 K/uL (0.00-0.20); BASOPHILS PERCENT AUTO 0.4 % (0.0-1.0); EOSINOPHILS ABSOLUTE AUTO 0.23 K/uL (0.00-0.45); EOSINOPHILS PERCENT AUTO 2.1 % (0.0-6.0); HEMATOCRIT 30.4 % (37.0-47.0); HEMOGLOBIN 9.5 g/dL (12.0-16.0); IMMATURE GRAN ABSOLUTE AUTO 0.12 K/uL (0.00-0.05); IMMATURE GRAN PERCENT AUTO 1.1 % (0.0-0.4); LYMPHOCYTES ABSOLUTE AUTO 2.11 K/uL (1.00-4.80); LYMPHOCYTES PERCENT AUTO 19.4 % (24.0-44.0); MEAN CORPUSCULAR HEMOGLOBIN 30.4 pg (28.0-32.0); MEAN CORPUSCULAR HGB CONC 31.3 g/dL (32.0-36.0); MEAN CORPUSCULAR VOLUME 97.4 fL (83.0-99.0); MEAN PLATELET VOLUME 9.4 fL (9.4-12.3); MONOCYTES ABSOLUTE AUTO 1.48 K/uL (0.00-0.80); MONOCYTES PERCENT AUTO 13.6 % (0.0-8.0); NEUTROPHILS ABSOLUTE AUTO 6.88 K/uL (1.80-7.70); NEUTROPHILS PERCENT AUTO 63.4 % (41.0-71.0); PLATELET COUNT,PLT 248 K/uL (150-400); RED BLOOD CELL COUNT 3.12 M/uL (4.10-5.30); WHITE BLOOD CELL COUNT,WBC 10.86 K/uL (3.9-11.3)
[2024-01-27 06:48] LABS: CALCIUM 8.1 mg/dL (8.5-10.1); CARBON DIOXIDE,CO2 24.7 mmol/L (21.0-32.0); CREATININE 0.9 mg/dL (0.6-1.0); EST CRCL DRUG DOSING (CG) 47.45 mL/min; POTASSIUM,K 4.1 mmol/L (3.5-5.1)
[2024-01-27] MEDS: Apixaban 5 MG Tab PO SCH (09:11)
[2024-01-27] MEDS: Losartan 25 MG Tab PO SCH (09:11)
[2024-01-27] MEDS: Digoxin 125 MCG Tab PO SCH (11:53)
[2024-01-27] MEDS: Ondansetron 4 MG/2 ML SDV IVPUSH PRN (19:37)
[2024-01-27] MEDS: Cefuroxime 250 MG Tab PO SCH (21:32)
[2024-01-28 08:28] LABS: BASOPHILS ABSOLUTE AUTO 0.05 K/uL (0.00-0.20); BASOPHILS PERCENT AUTO 0.5 % (0.0-1.0); EOSINOPHILS ABSOLUTE AUTO 0.16 K/uL (0.00-0.45); EOSINOPHILS PERCENT AUTO 1.7 % (0.0-6.0); HEMOGLOBIN 8.9 g/dL (12.0-16.0); IMMATURE GRAN ABSOLUTE AUTO 0.12 K/uL (0.00-0.05); IMMATURE GRAN PERCENT AUTO 1.3 % (0.0-0.4); LYMPHOCYTES ABSOLUTE AUTO 1.79 K/uL (1.00-4.80); LYMPHOCYTES PERCENT AUTO 18.8 % (24.0-44.0); MEAN CORPUSCULAR HEMOGLOBIN 30.6 pg (28.0-32.0); MEAN CORPUSCULAR HGB CONC 31.8 g/dL (32.0-36.0); MEAN CORPUSCULAR VOLUME 96.2 fL (83.0-99.0); MONOCYTES ABSOLUTE AUTO 1.27 K/uL (0.00-0.80); MONOCYTES PERCENT AUTO 13.3 % (0.0-8.0); NEUTROPHILS ABSOLUTE AUTO 6.14 K/uL (1.80-7.70); NEUTROPHILS PERCENT AUTO 64.4 % (41.0-71.0); PLATELET COUNT,PLT 226 K/uL (150-400); RED BLOOD CELL COUNT 2.91 M/uL (4.10-5.30); WHITE BLOOD CELL COUNT,WBC 9.53 K/uL (3.9-11.3)
[2024-01-28 09:02] LABS: A/G RATIO 0.4 (0.9-1.6); ALBUMIN 1.7 g/dL (3.4-5.0); BILIRUBIN TOTAL 1.1 mg/dL (0.2-1.0); CALCIUM 8.1 mg/dL (8.5-10.1); CARBON DIOXIDE,CO2 23.9 mmol/L (21.0-32.0); EST CRCL DRUG DOSING (CG) 42.7 mL/min; POTASSIUM,K 4.1 mmol/L (3.5-5.1); PROTEIN TOTAL,TP 6.4 g/dL (6.4-8.2)
[2024-01-28] MEDS: Metoprolol Tartrate 50 MG Tab PO SCH (09:05)
[2024-01-28 11:07] VITALS: BP 120/67; PULSE 72
== END 2024-01-28 13:00 | disposition home health service (06) ==
LOC: MW.ED 18:13 → MW.MS 22:54
PROVIDERS: ADMIT Family Medicine; ATTEND Family Medicine
DX: A41.9 Sepsis, unspecified organism (principal); I10 Essential (primary) hypertension; E11.9 Type 2 diabetes mellitus without complications; I48.91 Unspecified atrial fibrillation; E83.42 Hypomagnesemia; C18.9 Malignant neoplasm of colon, unspecified; C78.7 Secondary malignant neoplasm of liver and intrahepatic bile duct; C78.01 Secondary malignant neoplasm of right lung; C78.02 Secondary malignant neoplasm of left lung; L97.921 Non-pressure chronic ulcer of unspecified part of left lower leg limited to breakdown of skin; Z79.01 Long term (current) use of anticoagulants; Z79.899 Other long term (current) drug therapy; Z88.2 Allergy status to sulfonamides; Z91.040 Latex allergy status
CPT/HCPCS: 36415; 70450; 71045; 71260; 72125; 74177; 80048; 80053; 81001; 82947; 83605; 83690; 83735; 83880; 84100; 84443; 84484; 85025; 87040; 87086; 93005; 96365; 96366; 96367; 96375; 96376; 97162; 99285; A9270; G0378; J0692; J1815; J2405; J3475; J3490; J7040; Q9967; 93010; 99291

== ENCOUNTER 2024-02-11 20:10 | Emergency (ER) | payer MEDICARE, OTHER ==
[2024-02-11] MEDS: Sodium Chloride 0.9% 2.5 ML Syringe FLUSH PRN (20:41)
[2024-02-11] MEDS: Sodium Chloride 0.9% 10 ML Syringe FLUSH PRN (20:41)
[2024-02-11] MEDS: Ondansetron 4 MG/2 ML SDV IVPUSH ONE (21:16)
[2024-02-11 21:25] LABS: A/G RATIO 0.4 (0.9-1.6); ALBUMIN 1.8 g/dL (3.4-5.0); BILIRUBIN TOTAL 0.7 mg/dL (0.2-1.0); CALCIUM 8.1 mg/dL (8.5-10.1); CARBON DIOXIDE,CO2 22.7 mmol/L (21.0-32.0); CREATININE 1.4 mg/dL (0.6-1.0); EST CRCL DRUG DOSING (CG) 30.5 mL/min; POTASSIUM,K 4.3 mmol/L (3.5-5.1); PROTEIN TOTAL,TP 6.9 g/dL (6.4-8.2)
[2024-02-11 21:56] LABS: BASOPHILS ABSOLUTE AUTO 0.04 K/uL (0.00-0.20); BASOPHILS PERCENT AUTO 0.4 % (0.0-1.0); EOSINOPHILS ABSOLUTE AUTO 0.09 K/uL (0.00-0.45); HEMATOCRIT 29.9 % (37.0-47.0); HEMOGLOBIN 9.3 g/dL (12.0-16.0); IMMATURE GRAN ABSOLUTE AUTO 0.19 K/uL (0.00-0.05); IMMATURE GRAN PERCENT AUTO 2.1 % (0.0-0.4); LYMPHOCYTES ABSOLUTE AUTO 1.64 K/uL (1.00-4.80); LYMPHOCYTES PERCENT AUTO 18.2 % (24.0-44.0); MEAN CORPUSCULAR HEMOGLOBIN 29.2 pg (28.0-32.0); MEAN CORPUSCULAR HGB CONC 31.1 g/dL (32.0-36.0); MONOCYTES ABSOLUTE AUTO 0.85 K/uL (0.00-0.80); MONOCYTES PERCENT AUTO 9.4 % (0.0-8.0); NEUTROPHILS ABSOLUTE AUTO 6.21 K/uL (1.80-7.70); NEUTROPHILS PERCENT AUTO 68.9 % (41.0-71.0); PLATELET COUNT,PLT 291 K/uL (150-400); RED BLOOD CELL COUNT 3.18 M/uL (4.10-5.30); WHITE BLOOD CELL COUNT,WBC 9.02 K/uL (3.9-11.3)
[2024-02-11] MEDS: Iopamidol 755 MG/ML 500 ML Multipack Bottle IVPUSH ONE (22:02)
[2024-02-11 23:32] LABS: BILIRUBIN,URINE NEGATIVE (NEGATIVE); COLOR,URINE YELLOW; GLUCOSE,URINE NEGATIVE (NEGATIVE); KETONES,URINE NEGATIVE (NEGATIVE); LEUKOCYTE ESTERASE,URINE NEGATIVE (NEGATIVE); NITRITE,URINE NEGATIVE (NEGATIVE); OCCULT BLOOD,URINE SMALL (NEGATIVE); PROTEIN,URINE NEGATIVE (NEGATIVE); UROBILINOGEN,URINE 0.2 EU/dL (<2.0)
[2024-02-11 23:44] LABS: APPEARANCE,URINE SLT CLOUDY
[2024-02-11 23:47] LABS: BACTERIA,URINE FEW (NEGATIVE); EPITHELIAL CELLS,URINE FEW (NONE-FEW); WBC,URINE 0-1 (0-5/HPF)
[2024-02-12 00:28] VITALS: BP 187/79; PULSE 69
== END 2024-02-12 00:20 | disposition home or self-care (01) ==
LOC: MW.ED 20:10
DX: N17.9 Acute kidney failure, unspecified (principal); I11.0 Hypertensive heart disease with heart failure; I50.9 Heart failure, unspecified; E11.9 Type 2 diabetes mellitus without complications; E66.9 Obesity, unspecified; Z79.899 Other long term (current) drug therapy; Z79.01 Long term (current) use of anticoagulants; Z79.82 Long term (current) use of aspirin; Z88.2 Allergy status to sulfonamides; Z91.040 Latex allergy status; Z88.8 Allergy status to other drugs, medicaments and biological substances; Z75.8 Other problems related to medical facilities and other health care; Z79.84 Long term (current) use of oral hypoglycemic drugs
CPT/HCPCS: 36415; 74177; 80053; 81001; 83690; 84484; 85025; 93005; 96374; 99285; J2405; J3490; Q9967; 93010; 99284

== ENCOUNTER 2024-02-21 10:22 | Emergency (ER) | payer MEDICARE, OTHER ==
[2024-02-21 10:57] LABS: BASOPHILS ABSOLUTE AUTO 0.04 K/uL (0.00-0.20); BASOPHILS PERCENT AUTO 0.4 % (0.0-1.0); EOSINOPHILS ABSOLUTE AUTO 0.21 K/uL (0.00-0.45); EOSINOPHILS PERCENT AUTO 2.3 % (0.0-6.0); HEMATOCRIT 29.4 % (37.0-47.0); HEMOGLOBIN 9.3 g/dL (12.0-16.0); IMMATURE GRAN ABSOLUTE AUTO 0.07 K/uL (0.00-0.05); IMMATURE GRAN PERCENT AUTO 0.8 % (0.0-0.4); LYMPHOCYTES ABSOLUTE AUTO 1.29 K/uL (1.00-4.80); MEAN CORPUSCULAR HEMOGLOBIN 29.2 pg (28.0-32.0); MEAN CORPUSCULAR HGB CONC 31.6 g/dL (32.0-36.0); MEAN CORPUSCULAR VOLUME 92.2 fL (83.0-99.0); MONOCYTES ABSOLUTE AUTO 0.76 K/uL (0.00-0.80); MONOCYTES PERCENT AUTO 8.3 % (0.0-8.0); NEUTROPHILS ABSOLUTE AUTO 6.82 K/uL (1.80-7.70); NEUTROPHILS PERCENT AUTO 74.2 % (41.0-71.0); PLATELET COUNT,PLT 248 K/uL (150-400); RED BLOOD CELL COUNT 3.19 M/uL (4.10-5.30); WHITE BLOOD CELL COUNT,WBC 9.19 K/uL (3.9-11.3)
[2024-02-21 11:21] LABS: INR 1.22 (0.86-1.11); PTT,PARTIAL THROMBOPLSTIN TIME 37.4 SEC (23.9-30.7)
[2024-02-21] MEDS: Sodium Chloride 0.9% 500 ML IV STA (11:23)
[2024-02-21] MEDS: Meclizine 25 MG Tab PO STA (11:24)
[2024-02-21 11:32] LABS: A/G RATIO 0.4 (0.9-1.6); ALBUMIN 1.9 g/dL (3.4-5.0); BILIRUBIN TOTAL 0.7 mg/dL (0.2-1.0); CALCIUM 8.2 mg/dL (8.5-10.1); CARBON DIOXIDE,CO2 24.6 mmol/L (21.0-32.0); CREATININE 1.1 mg/dL (0.6-1.0); EST CRCL DRUG DOSING (CG) 38.82 mL/min; POTASSIUM,K 3.6 mmol/L (3.5-5.1)
[2024-02-21 11:36] LABS: DIGOXIN 0.5 ng/mL (0.9-2.0); MAGNESIUM 1.4 mg/dL (1.8-2.4); TSH ULTRASENSITIVE 2.94 uIU/mL (0.36-3.74)
[2024-02-21] MEDS: Magnesium Sulfate/Water 2 GM in Premix Bag 1 BAG IV STA (11:50)
[2024-02-21 13:36] VITALS: BP 155/83; PULSE 82
== END 2024-02-21 14:21 | disposition home or self-care (01) ==
LOC: MW.ED 10:22
DX: E83.42 Hypomagnesemia (principal); R42 Dizziness and giddiness; I11.0 Hypertensive heart disease with heart failure; I50.9 Heart failure, unspecified; E11.9 Type 2 diabetes mellitus without complications; I48.91 Unspecified atrial fibrillation; Z75.8 Other problems related to medical facilities and other health care; Z88.2 Allergy status to sulfonamides; Z91.040 Latex allergy status; Z88.8 Allergy status to other drugs, medicaments and biological substances; Z79.82 Long term (current) use of aspirin; Z79.899 Other long term (current) drug therapy; Z90.710 Acquired absence of both cervix and uterus
CPT/HCPCS: 36415; 80053; 80162; 83690; 83735; 83880; 84443; 84484; 85025; 85610; 85730; 93005; 96361; 96365; 99284; A9270; J1642; J3475; J7040; 93010; 99283

== ENCOUNTER 2024-02-23 10:29 | Emergency (ER) | payer MEDICARE, OTHER ==
[2024-02-23] MEDS: Ondansetron 4 MG Tab.DIS PO ONE (10:55)
[2024-02-23] MEDS: Magnesium Sulfate/Water 2 GM in Premix Bag 1 BAG IV ONE (11:08)
[2024-02-23] MEDS: Sodium Chloride 0.9% 500 ML IV SCH (11:08)
[2024-02-23 11:09] LABS: HEMATOCRIT 33.1 % (37.0-47.0); HEMOGLOBIN 10.1 g/dL (12.0-16.0); MEAN CORPUSCULAR HEMOGLOBIN 28.5 pg (28.0-32.0); MEAN CORPUSCULAR HGB CONC 30.5 g/dL (32.0-36.0); MEAN CORPUSCULAR VOLUME 93.2 fL (83.0-99.0); MEAN PLATELET VOLUME 9.4 fL (9.4-12.3); PLATELET COUNT,PLT 256 K/uL (150-400); RED BLOOD CELL COUNT 3.55 M/uL (4.10-5.30); WHITE BLOOD CELL COUNT,WBC 10.18 K/uL (3.9-11.3)
[2024-02-23 11:34] LABS: SEG NEUTROPHILS ABSOLUTE MAN 7.23 K/uL (1.80-7.70); SEG NEUTROPHILS PERCENT MAN 71 % (41-71)
[2024-02-23 11:35] LABS: BASOPHILS PERCENT MAN 1 % (0-1); EOSINOPHILS PERCENT MAN 2 % (0-6); LYMPHOCYTES ABSOLUTE MAN 1.93 K/uL (1.00-4.80); LYMPHOCYTES PERCENT MAN 19 % (24-44); MONOCYTES ABSOLUTE MAN 0.71 K/uL (0.00-0.80); MONOCYTES PERCENT MAN 7 % (0-8)
[2024-02-23 11:42] LABS: ALBUMIN 1.7 g/dL (3.4-5.0); BILIRUBIN TOTAL 0.7 mg/dL (0.2-1.0); CALCIUM 8.2 mg/dL (8.5-10.1); CARBON DIOXIDE,CO2 26.4 mmol/L (21.0-32.0); EST CRCL DRUG DOSING (CG) 42.7 mL/min; MAGNESIUM 1.6 mg/dL (1.8-2.4); POTASSIUM,K 3.9 mmol/L (3.5-5.1); PROTEIN TOTAL,TP 6.6 g/dL (6.4-8.2)
[2024-02-23 11:58] LABS: A/G RATIO 0.4 (0.9-1.6)
[2024-02-23] MEDS: Iopamidol 755 MG/ML 500 ML Multipack Bottle IVPUSH STA (15:09)
[2024-02-23 17:17] VITALS: BP 142/85; PULSE 85
== END 2024-02-23 17:17 | disposition home or self-care (01) ==
LOC: MW.ED 10:29
DX: E83.42 Hypomagnesemia (principal); R42 Dizziness and giddiness; C78.01 Secondary malignant neoplasm of right lung; I11.0 Hypertensive heart disease with heart failure; I50.9 Heart failure, unspecified; E11.9 Type 2 diabetes mellitus without complications; I48.91 Unspecified atrial fibrillation; Z88.2 Allergy status to sulfonamides; Z91.040 Latex allergy status; Z88.8 Allergy status to other drugs, medicaments and biological substances; Z79.82 Long term (current) use of aspirin; Z79.899 Other long term (current) drug therapy; Z90.710 Acquired absence of both cervix and uterus; Z79.01 Long term (current) use of anticoagulants
CPT/HCPCS: 36415; 74177; 80053; 80162; 83735; 84484; 85007; 85027; 93005; 96365; 99285; A9270; J1642; J3475; J7040; Q9967; 93010; 99284

== ENCOUNTER 2024-02-25 15:41 | Inpatient (IN) | payer MEDICARE, OTHER ==
[2024-02-25] MEDS ORDERED: Sodium Chloride 0.9% 20 ML SDV IV PRN (15:44)
[2024-02-25] MEDS: Metoprolol Tartrate 5 MG/5 ML SDV IVPUSH ONE (15:47)
[2024-02-25 15:56] LABS: HEMOGLOBIN 10.7 g/dL (12.0-16.0); MEAN CORPUSCULAR HEMOGLOBIN 28.8 pg (28.0-32.0); MEAN CORPUSCULAR HGB CONC 31.5 g/dL (32.0-36.0); MEAN CORPUSCULAR VOLUME 91.6 fL (83.0-99.0); PLATELET COUNT,PLT 314 K/uL (150-400); RED BLOOD CELL COUNT 3.71 M/uL (4.10-5.30); WHITE BLOOD CELL COUNT,WBC 19.13 K/uL (3.9-11.3)
[2024-02-25] MEDS: Iopamidol 755 MG/ML 500 ML Multipack Bottle IVPUSH STA (16:11)
[2024-02-25 16:12] LABS: INR 1.25 (0.86-1.11); PTT,PARTIAL THROMBOPLSTIN TIME 42.1 SEC (23.9-30.7)
[2024-02-25 16:28] LABS: A/G RATIO 0.4 (0.9-1.6); ALANINE AMINOTRANSFERASE,ALT 14 IU/L (14-63); ALBUMIN 1.9 g/dL (3.4-5.0); ALKALINE PHOSPHATASE 270 U/L (46-116); ASPARTATE AMNIOTRANSFERASE,AST 96 IU/L (15-37); BLOOD UREA NITROGEN,BUN 13 mg/dL (7.0-18.0); CALCIUM 8.2 mg/dL (8.5-10.1); CARBON DIOXIDE,CO2 25.4 mmol/L (21.0-32.0); CHLORIDE,CL 96 mmol/L (98-107); CREATININE 1.2 mg/dL (0.6-1.0); DIGOXIN 1.6 ng/mL (0.9-2.0); GLUCOSE RANDOM 159 mg/dL (74-106); MAGNESIUM 1.8 mg/dL (1.8-2.4); POTASSIUM,K 4.3 mmol/L (3.5-5.1); PROTEIN TOTAL,TP 7.1 g/dL (6.4-8.2); SODIUM,NA 131 mmol/L (136-145)
[2024-02-25 16:30] LABS: LACTIC ACID 3.3 mmol/L (0.4-2.0)
[2024-02-25 16:31] LABS: ESTIMATED GFR 46 mL/min (>60)
[2024-02-25] MEDS: Sodium Chloride 0.9% 10 ML Syringe FLUSH PRN (16:37)
[2024-02-25] MEDS: Sodium Chloride 0.9% 2.5 ML Syringe FLUSH PRN (16:37)
[2024-02-25] MEDS: Piperacillin/Tazobactam 3.375 GM in Sodium Chloride 0.9% 100 ML IV ONE (16:37)
[2024-02-25] MEDS: Magnesium Sulfate/Water 2 GM in Premix Bag 1 BAG IV ONE (16:37)
[2024-02-25] MEDS: Sodium Chloride 0.9% 1,000 ML IV ONE (16:37)
[2024-02-25 16:55] LABS: BASE EXCESS VENOUS 1.3 (-2.0-3.0); BICARBONATE,VENOUS 25 mEQ/mL (22-28); PCO2 VENOUS 36 mmHG (41-51); PH,VENOUS 7.45 (7.31-7.41)
[2024-02-25 16:56] LABS: PO2 VENOUS < 30 mmHG (35-45)
[2024-02-25 17:09] LABS: BAND ABSOLUTE MAN 0.38; BAND PERCENT MAN 2 %; LYMPHOCYTES ABSOLUTE MAN 3.25 K/uL (1.00-4.80); LYMPHOCYTES PERCENT MAN 17 % (24-44); MONOCYTES ABSOLUTE MAN 0.96 K/uL (0.00-0.80); MONOCYTES PERCENT MAN 5 % (0-8); SEG NEUTROPHILS ABSOLUTE MAN 14.54 K/uL (1.80-7.70); SEG NEUTROPHILS PERCENT MAN 76 % (41-71)
[2024-02-25] MEDS ORDERED: Polyethylene Glycol 3350 Powder 17 GM Packet PO PRN (18:04)
[2024-02-25] MEDS ORDERED: Acetaminophen 650 MG Supp RECTAL PRN (18:04)
[2024-02-25] MEDS ORDERED: Glucagon,Human Recombinant 1 MG Vial IM PRN (18:08)
[2024-02-25] MEDS ORDERED: 50% Dextrose in Water 50 ML Syringe IVPUSH PRN (18:08)
[2024-02-25] MEDS ORDERED: Piperacillin/Tazobactam 4.5 GM in Sodium Chloride 0.9% 100 ML IV SCH (18:15)
[2024-02-25 19:33] LABS: APPEARANCE,URINE SLT CLOUDY; BILIRUBIN,URINE NEGATIVE (NEGATIVE); GLUCOSE,URINE NEGATIVE (NEGATIVE); KETONES,URINE NEGATIVE (NEGATIVE); LEUKOCYTE ESTERASE,URINE NEGATIVE (NEGATIVE); NITRITE,URINE NEGATIVE (NEGATIVE); OCCULT BLOOD,URINE MODERATE (NEGATIVE); PROTEIN,URINE TRACE mg/dL (NEGATIVE); UROBILINOGEN,URINE 0.2 EU/dL (<2.0)
[2024-02-25] MEDS: Insulin Aspart 100 Units/ML 3 ML Pen SUBCUT SCH (19:33)
[2024-02-25 19:47] LABS: COLOR,URINE DARK YELLOW
[2024-02-25 19:49] LABS: BACTERIA,URINE FEW (NEGATIVE); EPITHELIAL CELLS,URINE FEW (NONE-FEW); MUCUS,URINE OCCASIONAL (NONE-MOD)
[2024-02-25 20:00] LABS: LACTIC ACID 1.6 mmol/L (0.4-2.0)
[2024-02-25] MEDS: Apixaban 5 MG Tab PO SCH (21:55)
[2024-02-25] MEDS: Acetaminophen 325 MG Tab PO PRN (22:16)
[2024-02-25] MEDS: Piperacillin/Tazobactam 4.5 GM in Sodium Chloride 0.9% 100 ML IV SCH (22:20)
[2024-02-25] MEDS: Metoprolol Tartrate 50 MG Tab PO SCH (23:43)
[2024-02-25] MEDS: Digoxin 125 MCG Tab PO SCH (23:46)
[2024-02-25] MEDS: Ondansetron 4 MG/2 ML SDV IVPUSH PRN (23:55)
[2024-02-26 06:17] LABS: HEMATOCRIT 30.8 % (37.0-47.0); HEMOGLOBIN 9.7 g/dL (12.0-16.0); MEAN CORPUSCULAR HEMOGLOBIN 29.1 pg (28.0-32.0); MEAN CORPUSCULAR HGB CONC 31.5 g/dL (32.0-36.0); MEAN CORPUSCULAR VOLUME 92.5 fL (83.0-99.0); MEAN PLATELET VOLUME 9.5 fL (9.4-12.3); PLATELET COUNT,PLT 256 K/uL (150-400); RED BLOOD CELL COUNT 3.33 M/uL (4.10-5.30)
[2024-02-26 06:45] LABS: CARBON DIOXIDE,CO2 26.7 mmol/L (21.0-32.0); CREATININE 1.2 mg/dL (0.6-1.0); EST CRCL DRUG DOSING (CG) 35.59 mL/min; MAGNESIUM 2.3 mg/dL (1.8-2.4); POTASSIUM,K 3.9 mmol/L (3.5-5.1)
[2024-02-26] MEDS: Potassium Chloride 20 MEQ Tab.ER PO ONE (08:10)
[2024-02-26] MEDS ORDERED: Digoxin 125 MCG Tab PO SCH (09:00)
[2024-02-26] MEDS ORDERED: Metoprolol Tartrate 25 MG Tab PO SCH (09:00)
[2024-02-26] MEDS: Gadobenate Dimeglumine 529 MG/ML 20 ML SDV IVPUSH ONE (12:48)
[2024-02-27 06:31] LABS: HEMATOCRIT 27.8 % (37.0-47.0); HEMOGLOBIN 8.7 g/dL (12.0-16.0); MEAN CORPUSCULAR HEMOGLOBIN 28.7 pg (28.0-32.0); MEAN CORPUSCULAR HGB CONC 31.3 g/dL (32.0-36.0); MEAN CORPUSCULAR VOLUME 91.7 fL (83.0-99.0); MEAN PLATELET VOLUME 9.4 fL (9.4-12.3); PLATELET COUNT,PLT 225 K/uL (150-400); RED BLOOD CELL COUNT 3.03 M/uL (4.10-5.30); WHITE BLOOD CELL COUNT,WBC 12.67 K/uL (3.9-11.3)
[2024-02-27 06:52] LABS: CALCIUM 7.6 mg/dL (8.5-10.1); CARBON DIOXIDE,CO2 24.2 mmol/L (21.0-32.0); CREATININE 1.2 mg/dL (0.6-1.0); EST CRCL DRUG DOSING (CG) 35.59 mL/min; POTASSIUM,K 4.2 mmol/L (3.5-5.1)
[2024-02-28] MEDS: Pantoprazole 40 MG in Sodium Chloride 0.9% 10 ML IVPUSH SCH (00:51)
[2024-02-28 06:02] LABS: BASOPHILS ABSOLUTE AUTO 0.06 K/uL (0.00-0.20); BASOPHILS PERCENT AUTO 0.5 % (0.0-1.0); EOSINOPHILS ABSOLUTE AUTO 0.23 K/uL (0.00-0.45); EOSINOPHILS PERCENT AUTO 1.9 % (0.0-6.0); HEMATOCRIT 32.5 % (37.0-47.0); HEMOGLOBIN 10.1 g/dL (12.0-16.0); IMMATURE GRAN ABSOLUTE AUTO 0.13 K/uL (0.00-0.05); IMMATURE GRAN PERCENT AUTO 1.1 % (0.0-0.4); LYMPHOCYTES ABSOLUTE AUTO 1.77 K/uL (1.00-4.80); LYMPHOCYTES PERCENT AUTO 14.7 % (24.0-44.0); MEAN CORPUSCULAR HEMOGLOBIN 28.6 pg (28.0-32.0); MEAN CORPUSCULAR HGB CONC 31.1 g/dL (32.0-36.0); MEAN CORPUSCULAR VOLUME 92.1 fL (83.0-99.0); MEAN PLATELET VOLUME 9.9 fL (9.4-12.3); MONOCYTES ABSOLUTE AUTO 1.06 K/uL (0.00-0.80); MONOCYTES PERCENT AUTO 8.8 % (0.0-8.0); NEUTROPHILS ABSOLUTE AUTO 8.81 K/uL (1.80-7.70); PLATELET COUNT,PLT 247 K/uL (150-400); RED BLOOD CELL COUNT 3.53 M/uL (4.10-5.30); WHITE BLOOD CELL COUNT,WBC 12.06 K/uL (3.9-11.3)
[2024-02-28 06:37] LABS: A/G RATIO 0.3 (0.9-1.6); ALBUMIN 1.5 g/dL (3.4-5.0); BILIRUBIN TOTAL 1.1 mg/dL (0.2-1.0); CALCIUM 8.2 mg/dL (8.5-10.1); CARBON DIOXIDE,CO2 23.3 mmol/L (21.0-32.0); CREATININE 1.1 mg/dL (0.6-1.0); EST CRCL DRUG DOSING (CG) 38.82 mL/min; MAGNESIUM 2.1 mg/dL (1.8-2.4); PHOSPHORUS 4.2 mg/dL (2.6-4.7); POTASSIUM,K 4.5 mmol/L (3.5-5.1); PROTEIN TOTAL,TP 6.5 g/dL (6.4-8.2)
[2024-02-28] MEDS: Metoclopramide 10 MG/2 ML SDV IVPUSH PRN (12:05)
[2024-02-28] MEDS: Promethazine 25 MG/ML SDV IM PRN (18:13)
[2024-02-29] MEDS: Melatonin 3 MG Tab PO PRN (00:27)
[2024-02-29 05:47] LABS: BASOPHILS ABSOLUTE AUTO 0.04 K/uL (0.00-0.20); BASOPHILS PERCENT AUTO 0.3 % (0.0-1.0); EOSINOPHILS ABSOLUTE AUTO 0.11 K/uL (0.00-0.45); EOSINOPHILS PERCENT AUTO 0.9 % (0.0-6.0); HEMATOCRIT 30.1 % (37.0-47.0); HEMOGLOBIN 9.7 g/dL (12.0-16.0); IMMATURE GRAN ABSOLUTE AUTO 0.18 K/uL (0.00-0.05); IMMATURE GRAN PERCENT AUTO 1.6 % (0.0-0.4); LYMPHOCYTES ABSOLUTE AUTO 2.56 K/uL (1.00-4.80); LYMPHOCYTES PERCENT AUTO 22.1 % (24.0-44.0); MEAN CORPUSCULAR HEMOGLOBIN 28.6 pg (28.0-32.0); MEAN CORPUSCULAR HGB CONC 32.2 g/dL (32.0-36.0); MEAN CORPUSCULAR VOLUME 88.8 fL (83.0-99.0); MEAN PLATELET VOLUME 9.8 fL (9.4-12.3); MONOCYTES ABSOLUTE AUTO 0.98 K/uL (0.00-0.80); MONOCYTES PERCENT AUTO 8.5 % (0.0-8.0); NEUTROPHILS ABSOLUTE AUTO 7.71 K/uL (1.80-7.70); NEUTROPHILS PERCENT AUTO 66.6 % (41.0-71.0); PLATELET COUNT,PLT 307 K/uL (150-400); RED BLOOD CELL COUNT 3.39 M/uL (4.10-5.30); WHITE BLOOD CELL COUNT,WBC 11.58 K/uL (3.9-11.3)
[2024-02-29 06:10] LABS: A/G RATIO 0.3 (0.9-1.6); ALBUMIN 1.3 g/dL (3.4-5.0); BILIRUBIN TOTAL 0.7 mg/dL (0.2-1.0); CARBON DIOXIDE,CO2 23.1 mmol/L (21.0-32.0); CREATININE 1.2 mg/dL (0.6-1.0); EST CRCL DRUG DOSING (CG) 35.59 mL/min; POTASSIUM,K 4.4 mmol/L (3.5-5.1); PROTEIN TOTAL,TP 5.8 g/dL (6.4-8.2)
[2024-02-29] MEDS: Acetaminophen/oxyCODONE 325-5 MG Tab PO ONE (23:12)
[2024-03-01 05:35] LABS: BASOPHILS ABSOLUTE AUTO 0.05 K/uL (0.00-0.20); BASOPHILS PERCENT AUTO 0.5 % (0.0-1.0); EOSINOPHILS PERCENT AUTO 1.8 % (0.0-6.0); HEMATOCRIT 29.5 % (37.0-47.0); HEMOGLOBIN 9.2 g/dL (12.0-16.0); IMMATURE GRAN ABSOLUTE AUTO 0.14 K/uL (0.00-0.05); IMMATURE GRAN PERCENT AUTO 1.3 % (0.0-0.4); LYMPHOCYTES ABSOLUTE AUTO 2.65 K/uL (1.00-4.80); LYMPHOCYTES PERCENT AUTO 24.1 % (24.0-44.0); MEAN CORPUSCULAR HEMOGLOBIN 28.3 pg (28.0-32.0); MEAN CORPUSCULAR HGB CONC 31.2 g/dL (32.0-36.0); MEAN CORPUSCULAR VOLUME 90.8 fL (83.0-99.0); MEAN PLATELET VOLUME 9.5 fL (9.4-12.3); MONOCYTES ABSOLUTE AUTO 1.18 K/uL (0.00-0.80); MONOCYTES PERCENT AUTO 10.7 % (0.0-8.0); NEUTROPHILS ABSOLUTE AUTO 6.79 K/uL (1.80-7.70); NEUTROPHILS PERCENT AUTO 61.6 % (41.0-71.0); PLATELET COUNT,PLT 324 K/uL (150-400); RED BLOOD CELL COUNT 3.25 M/uL (4.10-5.30); WHITE BLOOD CELL COUNT,WBC 11.01 K/uL (3.9-11.3)
[2024-03-01 06:01] LABS: A/G RATIO 0.3 (0.9-1.6); ALBUMIN 1.3 g/dL (3.4-5.0); BILIRUBIN TOTAL 0.5 mg/dL (0.2-1.0); CALCIUM 7.9 mg/dL (8.5-10.1); CARBON DIOXIDE,CO2 26.1 mmol/L (21.0-32.0); CREATININE 1.3 mg/dL (0.6-1.0); EST CRCL DRUG DOSING (CG) 32.85 mL/min; MAGNESIUM 1.7 mg/dL (1.8-2.4); PHOSPHORUS 4.5 mg/dL (2.6-4.7); POTASSIUM,K 4.1 mmol/L (3.5-5.1); PROTEIN TOTAL,TP 5.8 g/dL (6.4-8.2)
[2024-03-01] MEDS ORDERED: Magnesium Sulfate/Water 2 GM/50 ML Premix Bag IV ONE (08:57)
[2024-03-01] MEDS: Magnesium Sulfate/Water 2 GM in Premix Bag 1 BAG IV ONE (11:02)
[2024-03-01] MEDS: Benzocaine 20% Topical Spray UD MUCMEM ONE (11:16)
[2024-03-01] MEDS: Morphine 2 MG/ML SYRINGE IVPUSH STA (20:26)
[2024-03-01] MEDS: Digoxin 500 MCG/2 ML Amp IVPUSH ONE (22:55)
[2024-03-02 05:45] LABS: BASOPHILS ABSOLUTE AUTO 0.07 K/uL (0.00-0.20); BASOPHILS PERCENT AUTO 0.7 % (0.0-1.0); EOSINOPHILS ABSOLUTE AUTO 0.16 K/uL (0.00-0.45); EOSINOPHILS PERCENT AUTO 1.7 % (0.0-6.0); HEMATOCRIT 30.9 % (37.0-47.0); HEMOGLOBIN 9.4 g/dL (12.0-16.0); IMMATURE GRAN ABSOLUTE AUTO 0.18 K/uL (0.00-0.05); IMMATURE GRAN PERCENT AUTO 1.9 % (0.0-0.4); LYMPHOCYTES ABSOLUTE AUTO 2.33 K/uL (1.00-4.80); LYMPHOCYTES PERCENT AUTO 24.7 % (24.0-44.0); MEAN CORPUSCULAR HEMOGLOBIN 28.2 pg (28.0-32.0); MEAN CORPUSCULAR HGB CONC 30.4 g/dL (32.0-36.0); MEAN CORPUSCULAR VOLUME 92.8 fL (83.0-99.0); MEAN PLATELET VOLUME 9.6 fL (9.4-12.3); MONOCYTES ABSOLUTE AUTO 1.04 K/uL (0.00-0.80); NEUTROPHILS ABSOLUTE AUTO 5.65 K/uL (1.80-7.70); PLATELET COUNT,PLT 331 K/uL (150-400); RED BLOOD CELL COUNT 3.33 M/uL (4.10-5.30); WHITE BLOOD CELL COUNT,WBC 9.43 K/uL (3.9-11.3)
[2024-03-02 06:08] LABS: ALBUMIN 1.6 g/dL (3.4-5.0); BILIRUBIN TOTAL 0.5 mg/dL (0.2-1.0); CALCIUM 7.9 mg/dL (8.5-10.1); CARBON DIOXIDE,CO2 21.4 mmol/L (21.0-32.0); CREATININE 1.1 mg/dL (0.6-1.0); EST CRCL DRUG DOSING (CG) 38.82 mL/min; MAGNESIUM 2.1 mg/dL (1.8-2.4); PHOSPHORUS 4.1 mg/dL (2.6-4.7); PROTEIN TOTAL,TP 6.2 g/dL (6.4-8.2)
[2024-03-02 06:22] LABS: A/G RATIO 0.4 (0.9-1.6)
[2024-03-02] MEDS: Metoprolol Tartrate 5 MG/5 ML SDV IVPUSH PRN (09:21)
[2024-03-02] MEDS ORDERED: Metoprolol Tartrate 5 MG/5 ML SDV IVPUSH PRN (11:40)
[2024-03-03 08:35] LABS: A/G RATIO 0.4 (0.9-1.6); ALBUMIN 1.7 g/dL (3.4-5.0); BILIRUBIN TOTAL 0.5 mg/dL (0.2-1.0); CALCIUM 8.1 mg/dL (8.5-10.1); CARBON DIOXIDE,CO2 23.1 mmol/L (21.0-32.0); CREATININE 1.1 mg/dL (0.6-1.0); EST CRCL DRUG DOSING (CG) 38.82 mL/min; PHOSPHORUS 4.3 mg/dL (2.6-4.7); POTASSIUM,K 4.4 mmol/L (3.5-5.1); PROTEIN TOTAL,TP 6.5 g/dL (6.4-8.2)
[2024-03-03 09:01] LABS: HEMOGLOBIN 9.4 g/dL (12.0-16.0); RED BLOOD CELL COUNT 3.28 M/uL (4.10-5.30); WHITE BLOOD CELL COUNT,WBC 11.13 K/uL (3.9-11.3)
[2024-03-03 09:09] LABS: HEMATOCRIT 30.7 % (37.0-47.0); MEAN CORPUSCULAR HEMOGLOBIN 28.7 pg (28.0-32.0); MEAN CORPUSCULAR HGB CONC 30.6 g/dL (32.0-36.0); MEAN CORPUSCULAR VOLUME 93.6 fL (83.0-99.0); PLATELET COUNT,PLT 319 K/uL (150-400)
[2024-03-03 09:10] LABS: BASOPHILS ABSOLUTE AUTO 0.04 K/uL (0.00-0.20); BASOPHILS PERCENT AUTO 0.4 % (0.0-1.0); EOSINOPHILS ABSOLUTE AUTO 0.08 K/uL (0.00-0.45); EOSINOPHILS PERCENT AUTO 0.7 % (0.0-6.0); IMMATURE GRAN ABSOLUTE AUTO 0.22 K/uL (0.00-0.05); LYMPHOCYTES ABSOLUTE AUTO 2.17 K/uL (1.00-4.80); LYMPHOCYTES PERCENT AUTO 19.5 % (24.0-44.0); MEAN PLATELET VOLUME 9.7 fL (9.4-12.3); MONOCYTES ABSOLUTE AUTO 1.01 K/uL (0.00-0.80); MONOCYTES PERCENT AUTO 9.1 % (0.0-8.0); NEUTROPHILS ABSOLUTE AUTO 7.61 K/uL (1.80-7.70); NEUTROPHILS PERCENT AUTO 68.3 % (41.0-71.0)
[2024-03-03] MEDS: Meclizine 25 MG Tab PO PRN (11:06)
[2024-03-03 16:28] VITALS: BP 145/70; PULSE 65
== END 2024-03-03 17:30 | DRG 871 ==
LOC: MW.ED 15:41 → MW.MS 18:18 → OBSVTOIN 02-27 12:42
PROVIDERS: ADMIT Family Medicine; ATTEND Family Medicine
PROC: 0D9670Z Drainage of Stomach with Drainage Device, Via Natural or Artificial Opening (ICD-10-PCS; principal; 2024-02-27)
PROC: 3E03329 Introduction of Other Anti-infective into Peripheral Vein, Percutaneous Approach (ICD-10-PCS; 2024-02-27)
DX: A41.9 Sepsis, unspecified organism (principal); I63.541 Cerebral infarction due to unspecified occlusion or stenosis of right cerebellar artery; R41.0 Disorientation, unspecified; C78.5 Secondary malignant neoplasm of large intestine and rectum; R53.1 Weakness; C78.7 Secondary malignant neoplasm of liver and intrahepatic bile duct; K56.600 Partial intestinal obstruction, unspecified as to cause; N17.9 Acute kidney failure, unspecified; C18.9 Malignant neoplasm of colon, unspecified; C78.02 Secondary malignant neoplasm of left lung; Z91.041 Radiographic dye allergy status; Z88.8 Allergy status to other drugs, medicaments and biological substances; C78.01 Secondary malignant neoplasm of right lung; I48.91 Unspecified atrial fibrillation; Z66 Do not resuscitate; I50.9 Heart failure, unspecified; Z75.8 Other problems related to medical facilities and other health care; I11.0 Hypertensive heart disease with heart failure; M19.90 Unspecified osteoarthritis, unspecified site; F32.A Depression, unspecified; E11.9 Type 2 diabetes mellitus without complications; E66.9 Obesity, unspecified; E83.42 Hypomagnesemia; H54.7 Unspecified visual loss; Z88.2 Allergy status to sulfonamides; Z91.040 Latex allergy status; Z79.82 Long term (current) use of aspirin; Z79.899 Other long term (current) drug therapy; Z79.01 Long term (current) use of anticoagulants; Z86.010 Personal history of colon polyps; Z68.34 Body mass index [BMI] 34.0-34.9, adult; Z85.038 Personal history of other malignant neoplasm of large intestine; Z98.49 Cataract extraction status, unspecified eye; Z90.49 Acquired absence of other specified parts of digestive tract; Z90.89 Acquired absence of other organs; Z98.891 History of uterine scar from previous surgery; Z90.710 Acquired absence of both cervix and uterus; Z98.890 Other specified postprocedural states
CPT/HCPCS: 36415 ×3; 70450; 70496; 70498; 70553; 71045; 74018; 80048 ×2; 80053; 80162; 81001; 82803; 82947 ×12; 83605 ×2; 83735 ×3; 84484; 85025; 85027 ×2; 85610; 85730; 86850; 86900; 86901; 87040 ×2; 93005; 96365; 96368; 96375; 99285; A9270 ×12; A9577; J2405 ×2; J2543 ×6; J3475; J3490 ×8; J7030; Q9967; U0002; 43752; 74176; 74176-26; 74250; 74250-26; 84100; 87324; 93010; 96366; 96376; 97110-GP; 97162-GP; 97530-GP; 99223; 99231; 99232; 99239; 99291; C9113; G0378; J1160; J1815-GY; J2270; J2550; J2765

== ENCOUNTER 2024-03-13 18:07 | Observation (INO) | payer MEDICARE, OTHER ==
[2024-03-13 18:36] LABS: BASOPHILS ABSOLUTE AUTO 0.04 K/uL (0.00-0.20); BASOPHILS PERCENT AUTO 0.3 % (0.0-1.0); EOSINOPHILS PERCENT AUTO 0.8 % (0.0-6.0); HEMATOCRIT 28.3 % (37.0-47.0); HEMOGLOBIN 8.9 g/dL (12.0-16.0); IMMATURE GRAN ABSOLUTE AUTO 0.14 K/uL (0.00-0.05); IMMATURE GRAN PERCENT AUTO 1.1 % (0.0-0.4); LYMPHOCYTES ABSOLUTE AUTO 1.93 K/uL (1.00-4.80); LYMPHOCYTES PERCENT AUTO 15.8 % (24.0-44.0); MEAN CORPUSCULAR HEMOGLOBIN 28.3 pg (28.0-32.0); MEAN CORPUSCULAR HGB CONC 31.4 g/dL (32.0-36.0); MEAN CORPUSCULAR VOLUME 89.8 fL (83.0-99.0); MEAN PLATELET VOLUME 9.3 fL (9.4-12.3); MONOCYTES ABSOLUTE AUTO 1.13 K/uL (0.00-0.80); MONOCYTES PERCENT AUTO 9.3 % (0.0-8.0); NEUTROPHILS ABSOLUTE AUTO 8.87 K/uL (1.80-7.70); NEUTROPHILS PERCENT AUTO 72.7 % (41.0-71.0); PLATELET COUNT,PLT 223 K/uL (150-400); RED BLOOD CELL COUNT 3.15 M/uL (4.10-5.30); WHITE BLOOD CELL COUNT,WBC 12.21 K/uL (3.9-11.3)
[2024-03-13] MEDS: Sodium Chloride 0.9% 2.5 ML Syringe FLUSH PRN (18:47)
[2024-03-13] MEDS: Sodium Chloride 0.9% 10 ML Syringe FLUSH PRN (18:47)
[2024-03-13 19:02] LABS: APPEARANCE,URINE SLT CLOUDY; COLOR,URINE YELLOW; GLUCOSE,URINE NEGATIVE (NEGATIVE); KETONES,URINE NEGATIVE (NEGATIVE); LEUKOCYTE ESTERASE,URINE TRACE (NEGATIVE); NITRITE,URINE POSITIVE (NEGATIVE); OCCULT BLOOD,URINE LARGE (NEGATIVE); PROTEIN,URINE TRACE mg/dL (NEGATIVE)
[2024-03-13 19:04] LABS: BILIRUBIN,URINE SMALL (NEGATIVE)
[2024-03-13 19:10] LABS: A/G RATIO 0.4 (0.9-1.6); ALBUMIN 1.7 g/dL (3.4-5.0); BILIRUBIN TOTAL 0.9 mg/dL (0.2-1.0); CALCIUM 7.8 mg/dL (8.5-10.1); CARBON DIOXIDE,CO2 24.4 mmol/L (21.0-32.0); EST CRCL DRUG DOSING (CG) 39.39 mL/min; POTASSIUM,K 3.8 mmol/L (3.5-5.1); PROTEIN TOTAL,TP 6.5 g/dL (6.4-8.2)
[2024-03-13 19:20] LABS: BACTERIA,URINE 1+ (NEGATIVE); EPITHELIAL CELLS,URINE MODERATE (NONE-FEW); MUCUS,URINE LIGHT (NONE-MOD)
[2024-03-13] MEDS: cefTRIAXone 1 GM in Sodium Chloride 0.9% 50 ML IV ONE (19:26)
[2024-03-13] MEDS ORDERED: Furosemide 40 MG/4 ML VIAL IVPUSH ONE (21:20)
[2024-03-13] MEDS: Furosemide 20 MG/2 ML VIAL IVPUSH ONE (21:58)
[2024-03-14] MEDS ORDERED: Albuterol/Ipratropium 3.0-0.5 MG/3 ML Neb Soln NEB PRN (05:23)
[2024-03-14] MEDS ORDERED: Acetaminophen 650 MG Supp RECTAL PRN (05:23)
[2024-03-14] MEDS ORDERED: Polyethylene Glycol 3350 Powder 17 GM Packet PO PRN (05:23)
[2024-03-14] MEDS ORDERED: Melatonin 3 MG Tab PO PRN (05:23)
[2024-03-14] MEDS ORDERED: 50% Dextrose in Water 50 ML Syringe IVPUSH PRN (05:31)
[2024-03-14] MEDS ORDERED: Glucagon,Human Recombinant 1 MG Vial IM PRN (05:31)
[2024-03-14] MEDS: Insulin Aspart 100 Units/ML 3 ML Pen SUBCUT SCH (06:30)
[2024-03-14 06:34] LABS: BASOPHILS ABSOLUTE AUTO 0.05 K/uL (0.00-0.20); BASOPHILS PERCENT AUTO 0.5 % (0.0-1.0); EOSINOPHILS ABSOLUTE AUTO 0.13 K/uL (0.00-0.45); EOSINOPHILS PERCENT AUTO 1.3 % (0.0-6.0); HEMATOCRIT 27.4 % (37.0-47.0); HEMOGLOBIN 8.4 g/dL (12.0-16.0); IMMATURE GRAN ABSOLUTE AUTO 0.13 K/uL (0.00-0.05); IMMATURE GRAN PERCENT AUTO 1.3 % (0.0-0.4); LYMPHOCYTES ABSOLUTE AUTO 2.25 K/uL (1.00-4.80); MEAN CORPUSCULAR HEMOGLOBIN 28.1 pg (28.0-32.0); MEAN CORPUSCULAR HGB CONC 30.7 g/dL (32.0-36.0); MEAN CORPUSCULAR VOLUME 91.6 fL (83.0-99.0); MONOCYTES ABSOLUTE AUTO 1.22 K/uL (0.00-0.80); MONOCYTES PERCENT AUTO 11.9 % (0.0-8.0); NEUTROPHILS ABSOLUTE AUTO 6.47 K/uL (1.80-7.70); PLATELET COUNT,PLT 205 K/uL (150-400); RED BLOOD CELL COUNT 2.99 M/uL (4.10-5.30); WHITE BLOOD CELL COUNT,WBC 10.25 K/uL (3.9-11.3)
[2024-03-14 08:27] LABS: CALCIUM 7.6 mg/dL (8.5-10.1); CARBON DIOXIDE,CO2 25.7 mmol/L (21.0-32.0); CREATININE 0.9 mg/dL (0.6-1.0); EST CRCL DRUG DOSING (CG) 47.45 mL/min; MAGNESIUM 1.3 mg/dL (1.8-2.4); POTASSIUM,K 3.6 mmol/L (3.5-5.1)
[2024-03-14] MEDS: Furosemide 40 MG/4 ML VIAL IVPUSH SCH (08:30)
[2024-03-14] MEDS: Apixaban 5 MG Tab PO SCH (08:30)
[2024-03-14] MEDS: Cyanocobalamin (Vitamin B12) 500 MCG Tab PO SCH (08:31)
[2024-03-14] MEDS: cefTRIAXone 2 GM in Sodium Chloride 0.9% 50 ML IV SCH (08:32)
[2024-03-14] MEDS: Digoxin 125 MCG Tab PO SCH (08:32)
[2024-03-14] MEDS: Magnesium Oxide 400 MG Tab PO SCH (08:32)
[2024-03-14] MEDS: Magnesium Sulfate/Water 2 GM in Premix Bag 1 BAG IV ONE (14:18)
[2024-03-15] MEDS: Acetaminophen 325 MG Tab PO PRN (00:30)
[2024-03-15 06:18] LABS: BASOPHILS ABSOLUTE AUTO 0.07 K/uL (0.00-0.20); BASOPHILS PERCENT AUTO 0.8 % (0.0-1.0); EOSINOPHILS ABSOLUTE AUTO 0.32 K/uL (0.00-0.45); EOSINOPHILS PERCENT AUTO 3.5 % (0.0-6.0); HEMATOCRIT 28.1 % (37.0-47.0); HEMOGLOBIN 8.7 g/dL (12.0-16.0); IMMATURE GRAN ABSOLUTE AUTO 0.16 K/uL (0.00-0.05); IMMATURE GRAN PERCENT AUTO 1.7 % (0.0-0.4); LYMPHOCYTES ABSOLUTE AUTO 2.13 K/uL (1.00-4.80); LYMPHOCYTES PERCENT AUTO 23.2 % (24.0-44.0); MEAN CORPUSCULAR HEMOGLOBIN 28.2 pg (28.0-32.0); MEAN CORPUSCULAR VOLUME 90.9 fL (83.0-99.0); MEAN PLATELET VOLUME 9.9 fL (9.4-12.3); MONOCYTES ABSOLUTE AUTO 0.88 K/uL (0.00-0.80); MONOCYTES PERCENT AUTO 9.6 % (0.0-8.0); NEUTROPHILS ABSOLUTE AUTO 5.63 K/uL (1.80-7.70); NEUTROPHILS PERCENT AUTO 61.2 % (41.0-71.0); PLATELET COUNT,PLT 217 K/uL (150-400); RED BLOOD CELL COUNT 3.09 M/uL (4.10-5.30); WHITE BLOOD CELL COUNT,WBC 9.19 K/uL (3.9-11.3)
[2024-03-15 08:00] LABS: CALCIUM 8.1 mg/dL (8.5-10.1); CARBON DIOXIDE,CO2 28.7 mmol/L (21.0-32.0); EST CRCL DRUG DOSING (CG) 42.7 mL/min; MAGNESIUM 1.7 mg/dL (1.8-2.4); POTASSIUM,K 3.7 mmol/L (3.5-5.1)
[2024-03-15] MEDS: Ondansetron 4 MG/2 ML SDV IVPUSH PRN ×2 (08:25→12:54)
[2024-03-15] MEDS: Furosemide 20 MG Tab PO SCH (08:30)
[2024-03-15] MEDS: Magnesium Sulfate/Water 2 GM in Premix Bag 1 BAG IV ONE (09:39)
[2024-03-15 16:00] VITALS: BP 127/63; PULSE 78
== END 2024-03-15 15:35 | disposition home or self-care (01) ==
LOC: MW.ED 18:07 → MW.MS 20:17
PROVIDERS: ADMIT Family Medicine; ATTEND Family Medicine
DX: N39.0 Urinary tract infection, site not specified (principal); I11.0 Hypertensive heart disease with heart failure; I50.9 Heart failure, unspecified; E11.622 Type 2 diabetes mellitus with other skin ulcer; L97.911 Non-pressure chronic ulcer of unspecified part of right lower leg limited to breakdown of skin; I48.91 Unspecified atrial fibrillation; C78.01 Secondary malignant neoplasm of right lung; C78.02 Secondary malignant neoplasm of left lung; C18.9 Malignant neoplasm of colon, unspecified; C78.7 Secondary malignant neoplasm of liver and intrahepatic bile duct; K43.9 Ventral hernia without obstruction or gangrene; E66.9 Obesity, unspecified; F32.A Depression, unspecified; Z79.82 Long term (current) use of aspirin; Z79.899 Other long term (current) drug therapy; Z88.2 Allergy status to sulfonamides; Z91.040 Latex allergy status; Z88.8 Allergy status to other drugs, medicaments and biological substances; Z95.828 Presence of other vascular implants and grafts; Z68.30 Body mass index [BMI] 30.0-30.9, adult
CPT/HCPCS: 36415; 71045; 74176; 80048; 80053; 81001; 82947; 83735; 83880; 84484; 85025; 87086; 93005; 96365; 96366; 96367; 96375; 96376; 97161; 99285; A9270; G0378; J0696; J1940; J2405; J3475; J3490; 93010; 99284

== ENCOUNTER 2024-03-21 16:52 | Inpatient (IN) | payer MEDICARE, OTHER ==
[2024-03-21] MEDS: Magnesium Sulfate/Water 2 GM in Premix Bag 1 BAG IV ONE (17:20)
[2024-03-21] MEDS: Ondansetron 4 MG/2 ML SDV IVPUSH ONE ×2 (17:20→18:43)
[2024-03-21] MEDS: Sodium Chloride 0.9% 2.5 ML Syringe FLUSH PRN (17:21)
[2024-03-21] MEDS: Sodium Chloride 0.9% 10 ML Syringe FLUSH PRN (17:21)
[2024-03-21 17:26] LABS: BASE EXCESS VENOUS -2.8 (-2.0-3.0); BICARBONATE,VENOUS 22 mEQ/mL (22-28); PCO2 VENOUS 37 mmHG (41-51); PH,VENOUS 7.39 (7.31-7.41)
[2024-03-21 17:27] LABS: PO2 VENOUS < 30 mmHG (35-45)
[2024-03-21 17:38] LABS: HEMATOCRIT 29.7 % (37.0-47.0); HEMOGLOBIN 9.3 g/dL (12.0-16.0); MEAN CORPUSCULAR HEMOGLOBIN 28.7 pg (28.0-32.0); MEAN CORPUSCULAR HGB CONC 31.3 g/dL (32.0-36.0); MEAN CORPUSCULAR VOLUME 91.7 fL (83.0-99.0); MEAN PLATELET VOLUME 9.9 fL (9.4-12.3); PLATELET COUNT,PLT 262 K/uL (150-400); RED BLOOD CELL COUNT 3.24 M/uL (4.10-5.30); WHITE BLOOD CELL COUNT,WBC 20.55 K/uL (3.9-11.3)
[2024-03-21] MEDS: Diltiazem 100 MG in Sodium Chloride 0.9% 100 ML IV SCH (17:51)
[2024-03-21] MEDS: Lactated Ringers 1,000 ML IV STA (17:52)
[2024-03-21 18:08] LABS: A/G RATIO 0.4 (0.9-1.6); ALBUMIN 1.7 g/dL (3.4-5.0); BILIRUBIN TOTAL 1.2 mg/dL (0.2-1.0); CALCIUM 8.3 mg/dL (8.5-10.1); CARBON DIOXIDE,CO2 21.7 mmol/L (21.0-32.0); CREATININE 1.1 mg/dL (0.6-1.0); EST CRCL DRUG DOSING (CG) 35.81 mL/min; MAGNESIUM 1.4 mg/dL (1.8-2.4); PHOSPHORUS 3.4 mg/dL (2.6-4.7); POTASSIUM,K 3.7 mmol/L (3.5-5.1); PROTEIN TOTAL,TP 6.1 g/dL (6.4-8.2); TSH ULTRASENSITIVE 6.38 uIU/mL (0.36-3.74)
[2024-03-21 18:11] LABS: LACTIC ACID 5.6 mmol/L (0.4-2.0)
[2024-03-21] MEDS: Cefepime 2 GM in Sodium Chloride 0.9% 50 ML IV ONE (18:31)
[2024-03-21 18:34] LABS: T4 FREE 1.28 ng/dL (0.76-1.46)
[2024-03-21 18:47] LABS: LYMPHOCYTES ABSOLUTE MAN 4.11 K/uL (1.00-4.80); LYMPHOCYTES PERCENT MAN 20 % (24-44); MONOCYTES ABSOLUTE MAN 1.85 K/uL (0.00-0.80); MONOCYTES PERCENT MAN 9 % (0-8); MYELOCYTE ABSOLUTE MAN 0.21; SEG NEUTROPHILS ABSOLUTE MAN 14.18 K/uL (1.80-7.70); SEG NEUTROPHILS PERCENT MAN 69 % (41-71)
[2024-03-21 18:52] LABS: BAND ABSOLUTE MAN 0.41; BAND PERCENT MAN 2 %
[2024-03-21] MEDS: Lactated Ringers 1,000 ML IV ONE (19:05)
[2024-03-21] MEDS ORDERED: LORazepam 1 MG Tab PO PRN (22:08)
[2024-03-21] MEDS ORDERED: Atropine 1% Ophth Soln 5 ML Bottle SL PRN (22:17)
[2024-03-21] MEDS ORDERED: Naloxone 0.4 MG/ML SDV IVPUSH PRN (22:33)
[2024-03-21] MEDS ORDERED: Ondansetron 4 MG Tab PO PRN (22:35)
[2024-03-22] MEDS: Ondansetron 4 MG/2 ML SDV IVPUSH PRN ×2 (02:09→09:32)
[2024-03-22] MEDS: LORazepam ORAL Concentrate 1MG/0.5ML U/D PO PRN (02:34)
[2024-03-22] MEDS: Iopamidol 755 MG/ML 500 ML Multipack Bottle IVPUSH STA (08:24)
[2024-03-22] MEDS: Morphine 10 MG/0.5 ML Oral Syringe PO PRN ×2 (09:30→11:25)
[2024-03-22] MEDS: Haloperidol Lactate 2 MG/ML Oral Soln 15 ML Bottle PO PRN (11:34)
[2024-03-23] MEDS ORDERED: diphenhydrAMINE 50 MG/ML SDV IVPUSH PRN ×4 (08:48→11:16)
[2024-03-24] MEDS: Morphine 4 MG/ML Syringe IVPUSH PRN (08:39)
[2024-03-25] MEDS: Atropine 1% Ophth Soln 5 ML Bottle SL PRN (09:09)
[2024-03-26 04:07] VITALS: BP 107/55; PULSE 93
== END 2024-03-26 13:25 | disposition expired | DRG 951 ==
LOC: MW.ED 16:52 → MW.MS 19:48
PROVIDERS: ADMIT Family Medicine; ATTEND Family Medicine
DX: Z51.5 Encounter for palliative care (principal); C18.9 Malignant neoplasm of colon, unspecified; C78.7 Secondary malignant neoplasm of liver and intrahepatic bile duct; C78.01 Secondary malignant neoplasm of right lung; C78.02 Secondary malignant neoplasm of left lung; E11.9 Type 2 diabetes mellitus without complications; E66.9 Obesity, unspecified; I45.3 Trifascicular block; I95.9 Hypotension, unspecified; Z66 Do not resuscitate; I48.91 Unspecified atrial fibrillation; I11.0 Hypertensive heart disease with heart failure; I50.9 Heart failure, unspecified; M19.90 Unspecified osteoarthritis, unspecified site; Z90.49 Acquired absence of other specified parts of digestive tract; Z90.710 Acquired absence of both cervix and uterus; F32.A Depression, unspecified; D72.829 Elevated white blood cell count, unspecified; E66.01 Morbid (severe) obesity due to excess calories; Z88.2 Allergy status to sulfonamides; Z88.8 Allergy status to other drugs, medicaments and biological substances; Z68.35 Body mass index [BMI] 35.0-35.9, adult; Z79.82 Long term (current) use of aspirin; Z79.01 Long term (current) use of anticoagulants; Z97.3 Presence of spectacles and contact lenses; Z86.73 Personal history of transient ischemic attack (TIA), and cerebral infarction without residual deficits; Z91.040 Latex allergy status; Z79.899 Other long term (current) drug therapy
CPT/HCPCS: 36415; 71045; 80053; 80162; 82803; 83605; 83690; 83735; 83880; 84100; 84439; 84443; 84484; 85025; 87040 ×2; 93005; 96361; 96365; 96367; 96368; 96375; 96376; 99285; J0692; J2405 ×2; J3475; J3490 ×4; J7120 ×2; 93010; 99223; 99232; 99233; 99239; A9270-GY; J2270